=== PATIENT | female | born 1980 | race Caucasian/White ===

== ENCOUNTER 2018-01-12 16:10 | Emergency (ER) | payer BC ==
[2018-01-12] MEDS ORDERED: NA CHLORIDE 0.9% 100 ML IV ONE (16:56)
[2018-01-12 17:00] LABS: Absolute Monocytes 0.9 K/uL (0.1-1.3); Absolute Neutrophil 15.3 K/uL (1.8-8.0); Basophils % 0.2 % (0-1.3); Eosinophils % 0.5 % (0-4.4); Hematocrit 38.1 % (36.0-45.0); Lymphocytes % 10.9 % (15.3-44.8); MCH 30.2 pg (27.0-35.0); MCV 89.8 fL (80-100); MPV 7.6 fL (7.6-11.3); Monocytes % 4.8 % (3.3-12.3); RBC Red Blood Cell Count 4.24 M/uL (3.86-4.86)
[2018-01-12 17:16] LABS: ALT/SGPT 37 U/L (12-78); AST/SGOT 20 U/L (15-37); Albumin 4.3 g/dL (3.4-5.0); Alkaline Phosphatase 81 U/L (45-117); Amylase Level 46 U/L (25-115); BUN Blood Urea Nitrogen 10 mg/dL (7-18); Bicarbonate 26 mmol/L (21-32); Bilirubin Direct 0.1 mg/dL (0-0.2); Bilirubin Total 0.3 mg/dL (0.2-1.0); Glucose Level 95 mg/dL (74-106); Lipase 124 U/L (73-393); Potassium 3.9 mmol/L (3.5-5.1); Protein, Total 8.3 g/dL (6.4-8.2); Sodium Level 137 mmol/L (136-145)
[2018-01-12 18:11] LABS: Urine Blood 3+ (NEG); Urine Glucose NEGATIVE (NEG); Urine Protein 2+ (NEG); Urine Specific Gravity 1.015 (1.005-1.030); Urine pH 5.5 (5.0-7.0)
[2018-01-12 18:13] LABS: Urine Bacteria <20 /HPF (<20); Urine Culture Reflex Order NOT NEEDED; Urine RBC <5 /HPF (NONE SEEN)
--- NOTE | 2018-01-12 18:30 | RAD REPORT ---
EXAM DESCRIPTION: CTAbdomen Pelvis W Contrast - 01/12/2018 6:02 pm CLINICAL HISTORY: Abdominal pain. ABD PAIN COMPARISON: CT ABD PELVIS W CONTRAST dated 07/23/2014; Chest Single View dated 12/08/2015 TECHNIQUE: Biphasic CT imaging of the abdomen and pelvis was performed with 100 ml non-ionic IV cont rast. All CT scans are performed using dose optimization technique as appropriate and may include automated exposure control or mA/KV adjustment according to patient size. FINDINGS: The lung bases are clear. The liver, spleen, pancreas, adrenal glands and kidneys are within normal limits. No bowel obstruction, free air, free fluid or abscess. The appendix is normal. No evidence of signi ficant lymphadenopathy. No suspicious bony findings. 5 cm area of diminished density in the uterus may represent a fibroid or a pathologically dilated endometrium. IMPRESSION: No acute intra-abdominal or pelvic finding. 5 cm area of diminished density in the uterus is potentially a fibroid or pathologically dilated endo metrium. Followup pelvic sonography would be of value for further assessment of this finding.
--- NOTE | 2018-01-12 18:55 | ER ---
Nurse's Notes [facility] Name: Dottie Blanca Age: 37 yrs Sex: Female : 1980 Arrival Date: 01/12/2018 Time: 16:11 Bed 30 Private MD: Diagnosis: Leiomyoma of uterus;Abnormal uterine and vaginal bleeding, unspecified Presentation: 01/12 16:18 Presenting complaint: Patient states: Right abdominal pain for 6 days with irregular aj uterine bleeding. Patient reports bloating and nausea. Transition of care: patient was not received from another setting of care. Onset of symptoms was January 06, 2018. Risk Assessment: Do you want to hurt yourself or someone else? Patient reports no desire to harm self or others. Initial Sepsis Screen: Does the patient meet any 2 criteria? No. Patient's initial sepsis screen is negative. Does the patient have a suspected source of infection? No. Patient's initial sepsis screen is negative. Care prior to arrival: None. 16:18 Method Of Arrival: Ambulatory aj 16:18 Acuity: RENETTA 3 aj Triage Assessment: 16:20 General: Appears in no apparent distress. comfortable, Behavior is calm, cooperative, aj appropriate for age. Pain: Complains of pain in right upper quadrant and right lower quadrant. Neuro: Level of Consciousness is awake, alert, obeys commands, Oriented to person, place, time, situation, Appropriate for age. Respiratory: Airway is patent Respiratory effort is even, unlabored, Respiratory pattern is regular, symmetrical. GI: Abdomen is round Reports lower abdominal pain, upper abdominal pain, bloating, nausea. Derm: Skin is intact, is healthy with good turgor, Skin is pink, warm \T\ dry. normal. 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 - Social history:: Smoking status: Patient uses tobacco products, smokes one-half pack cigarettes per day. - Ebola Screening: : Patient negative for fever greater than or equal to 101.5 degrees Fahrenheit, and additional compatible Ebola Virus Disease symptoms Patient denies exposure to infectious person Patient denies travel to an Ebola-affected area in the 21 days before illness onset No symptoms or risks identified at this time. Screenin:29 Abuse screen: Denies threats or abuse. Denies injuries from another. Nutritional rv screening: No deficits noted. Tuberculosis screening: No symptoms or risk factors identified. Fall Risk None identified. Assessment: 16:45 General: Appears in no apparent distress. uncomfortable, Behavior is calm, cooperative. rv 16:45 Pain: Complains of pain in abdomen Pain currently is 7 out of 10 on a pain scale. rv Neuro: Level of Consciousness is awake, alert, obeys commands, Oriented to person, place, time. Cardiovascular: Heart tones S1 S2 present. Respiratory: Airway is patent. GI: Bowel sounds present X 4 quads. Abd is soft and non tender. : No signs and/or symptoms were reported regarding the genitourinary system. EENT: No signs and/or symptoms were reported regarding the EENT system. Derm: Skin is intact. Musculoskeletal: No signs and/or symptoms reported regarding the musculoskeletal system. Vital Signs: 16:20 BP 124 / 91; Pulse 129; Resp 20; Temp 99.0; Pulse Ox 98% on R/A; Weight 65.77 kg; aj Height 5 ft. 3 in. (160.02 cm); 16:59 BP 106 / 75; rv 18:25 BP 126 / 82; rv 19:30 BP 120 / 87; Pulse 103; rv 16:20 Body Mass Index 25.69 (65.77 kg, 160.02 cm) aj ED Course: 16:10 Patient has correct armband on for positive identification. Bed in low position. NIBP rv on. 16:11 Patient arrived in ED. as 16:19 Triage completed. aj 16:20 Arm band placed on left wrist. Patient placed in an exam room. aj 16:24 Erlin Mcmullen NP is PHCP. pm1 16:24 Ld Hagen MD is Attending Physician. pm1 16:43 Radiology exam delayed due to test not completed at this time. bq 16:58 Inserted saline lock: 20 gauge in right antecubital area, using aseptic technique. rv 17:59 CT completed. Patient moved to CT via wheelchair. Patient moved back from CT. cw1 18:02 CT Abd/Pelvis - W/Contrast: IV contrast only In Process Unspecified. EDMS 18:53 Wilberto Wiseman MD is Referral Physician. pm1 19:28 Blood Culture Adult (2) Sent. rv 19:29 No provider procedures requiring assistance completed. IV discontinued, bleeding rv controlled, No redness/swelling at site. Pressure dressing applied. Administered Medications: 16:56 Drug: NS 0.9% 1000 ml Route: IV; Rate: 1000 ml; Site: right antecubital; rv 19:28 Follow up: Response: No adverse reaction; IV Status: Completed infusion rv Outcome: 18:55 Discharge ordered by MD. pm1 19:29 Discharged to home ambulatory. rv 19:29 Condition: good 19:29 Discharge instructions given to patient, Instructed on discharge instructions, follow up and referral plans. medication usage. 19:30 Patient left the ED. rv Signatures: Dispatcher [employer] EDMS Fabiola Adams, ISAEL RN Bertha Clay Amelia as Woodley, Crystal cw1 Erlin Mcmullen, MILITARY EXCHANGE WIRELESS MANAGER MILITARY EXCHANGE WIRELESS MANAGER pm1 Clarence Corbin RN RN rv
--- NOTE | 2018-01-12 18:56 | EDPHYS ---
Physician Documentation [facility] Name: Dottie Blanca Age: 37 yrs Sex: Female : 1980 Arrival Date: 01/12/2018 Time: 16:11 Bed 30 Private MD: ED Physician Ld Hagen HPI: 01/12 16:30 This 37 yrs old Female presents to ER via Ambulatory with complaints of pm1 Abdominal Pain. 16:30 The patient presents with abdominal pain Suprapubic. Onset: The symptoms/episode pm1 began/occurred 6 day(s) ago. The symptoms do not radiate. Associated signs and symptoms: Pertinent negatives: nausea, vomiting, and diarrhea, chest pain, dysuria, fever, headache, shortness of breath. The symptoms are described as crampy, sharp. Modifying factors: The symptoms are alleviated by positioning, keeping knees bent. the symptoms are aggravated by nothing. Severity of pain: in the emergency department the pain is actually worse. The patient has experienced similar episodes in the past, multiple times. 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 - Social history:: Smoking status: Patient uses tobacco products, smokes one-half pack cigarettes per day. - Ebola Screening: : Patient negative for fever greater than or equal to 101.5 degrees Fahrenheit, and additional compatible Ebola Virus Disease symptoms Patient denies exposure to infectious person Patient denies travel to an Ebola-affected area in the 21 days before illness onset No symptoms or risks identified at this time. ROS: 16:30 Constitutional: Negative for fever, chills, and weight loss, Eyes: Negative for injury, pm1 pain, redness, and discharge, ENT: Negative for injury, pain, and discharge, Neck: Negative for injury, pain, and swelling, Cardiovascular: Negative for chest pain, palpitations, and edema, Respiratory: Negative for shortness of breath, cough, wheezing, and pleuritic chest pain. 16:30 MS/Extremity: Negative for injury and deformity, Skin: Negative for injury, rash, and discoloration. 16:30 Neuro: Negative for headache, weakness, numbness, tingling, and seizure. 16:30 Abdomen/GI: Positive for abdominal pain, Negative for nausea, vomiting, and diarrhea. 16:30 : Positive for vaginal bleeding, Negative for burning with urination, difficulty urinating. Exam: 16:30 Constitutional: This is a well developed, well nourished patient who is awake, alert, pm1 and in no acute distress. Head/Face: Normocephalic, atraumatic. Eyes: Pupils equal round and reactive to light, extra-ocular motions intact. Lids and lashes normal. Conjunctiva and sclera are non-icteric and not injected. Cornea within normal limits. Periorbital areas with no swelling, redness, or edema. ENT: Nares patent. No nasal discharge, no septal abnormalities noted. Tympanic membranes are normal and external auditory canals are clear. Oropharynx with no redness, swelling, or masses, exudates, or evidence of obstruction, uvula midline. Mucous membranes moist. Neck: Trachea midline, no thyromegaly or masses palpated, and no cervical lymphadenopathy. Supple, full range of motion without nuchal rigidity, or vertebral point tenderness. No Meningismus. Chest/axilla: Normal chest wall appearance and motion. Nontender with no deformity. No lesions are appreciated. Cardiovascular: Regular rate and rhythm with a normal S1 and S2. No gallops, murmurs, or rubs. Normal PMI, no JVD. No pulse deficits. Respiratory: Lungs have equal breath sounds bilaterally, clear to auscultation and percussion. No rales, rhonchi or wheezes noted. No increased work of breathing, no retractions or nasal flaring. 16:30 Back: No spinal tenderness. No costovertebral tenderness. Full range of motion. Skin: Warm, dry with normal turgor. Normal color with no rashes, no lesions, and no evidence of cellulitis. MS/ Extremity: Pulses equal, no cyanosis. Neurovascular intact. Full, normal range of motion. 16:30 Abdomen/GI: Inspection: abdomen appears normal, Bowel sounds: normal, Palpation: mild abdominal tenderness, in the suprapubic area and right lower quadrant, mass, is not appreciated, rebound tenderness, is not appreciated. 16:30 Neuro: Orientation: is normal, Motor: is normal, moves all fours. Vital Signs: 16:20 BP 124 / 91; Pulse 129; Resp 20; Temp 99.0; Pulse Ox 98% on R/A; Weight 65.77 kg; aj Height 5 ft. 3 in. (160.02 cm); 16:59 BP 106 / 75; rv 18:25 BP 126 / 82; rv 19:30 BP 120 / 87; Pulse 103; rv 16:20 Body Mass Index 25.69 (65.77 kg, 160.02 cm) aj MDM: 16:30 Patient medically screened. pm1 16:31 ED course: Patient offered pain medications in the ER. Patient refused.. pm1 18:52 Data reviewed: vital signs. Data interpreted: Pulse oximetry: on room air is 98 %. pm1 Interpretation: normal. Counseling: I had a detailed discussion with the patient and/or guardian regarding: the historical points, exam findings, and any diagnostic results supporting the discharge/admit diagnosis, lab results, radiology results, the need for outpatient follow up, for definitive care, an OB/Gyne specialist, to return to the emergency department if symptoms worsen or persist or if there are any questions or concerns that arise at home. 18:52 ED course: patient offered pain medication in the ER, patient refused. pm1 18:52 ED course: Patient reports that she is aware of uterine fibroid and Dr. Wiseman wanted to pm1 perform a procedure to address it. Patient was concerned that the pain was something else. Elevated WBC likely due to inflammation due to CT results and negative urine result. Instructed patient to follow up with Dr. Wiseman for definitive care. 01/12 16:30 Order name: Amylase, Serum; Complete Time: 18:32 pm01/12 16:30 Order name: Basic Metabolic Panel; Complete Time: 18:32 pm01/12 16:30 Order name: CBC with Diff; Complete Time: 17:04 pm01/12 16:30 Order name: Creatinine for Radiology; Complete Time: 17:14 pm01/12 16:30 Order name: Hepatic Function; Complete Time: 18:32 pm1 01/12 16:30 Order name: Lipase; Complete Time: 18:32 pm01/12 16:30 Order name: Urine Test (obtain specimen); Complete Time: 18:25 pm01/12 16:30 Order name: Urine Microscopic Only; Complete Time: 18:32 pm1 01/12 16:31 Order name: CT Abd/Pelvis - W/Contrast: IV contrast only; Complete Time: 18:32 pm1 01/12 17:14 Order name: Blood Culture Adult (2) pm1 01/12 17:15 Order name: Blood Culture [facility] 01/12 17:49 Order name: Urine Dipstick--Ancillary (enter results); Complete Time: 18:32 eb 01/12 17:49 Order name: Urine --Ancillary (enter results); Complete Time: 18:32 eb 01/12 16:30 Order name: IV Saline Lock; Complete Time: 16:50 pm1 01/12 16:30 Order name: Labs collected and sent; Complete Time: 16:50 pm1 01/12 16:30 Order name: Urine Dipstick-Ancillary (obtain specimen); Complete Time: 18:25 pm1 Administered Medications: 16:56 Drug: NS 0.9% 1000 ml Route: IV; Rate: 1000 ml; Site: right antecubital; rv 19:28 Follow up: Response: No adverse reaction; IV Status: Completed infusion rv Disposition: 01/13 07:10 Co-signature as Attending Physician, Ld Hagen MD I agree with the assessment and kdr plan of care. Disposition: 01/12/18 18:55 Discharged to Home. Impression: Leiomyoma of uterus, Abnormal uterine and vaginal bleeding, unspecified. - Condition is Stable. - Discharge Instructions: Abdominal Pain, Adult, Abnormal Uterine Bleeding, Uterine Fibroids. - Prescriptions for Tramadol 50 mg Oral Tablet - take 1 tablet by ORAL route every 8 hours as needed; 12 tablet. - Medication Reconciliation Form, Thank You Letter, Prescription Opioid Use form. - Follow up: Emergency Department; When: As needed; Reason: Worsening of condition. Follow up: Wilberto Wiseman MD; When: 2 - 3 days; Reason: Recheck today's complaints, Continuance of care, Re-evaluation by your physician. - Problem is new. - Symptoms have improved. Signatures: Dispatcher [employer] EDFabiola Lozano RN RN aj Rittger, Kevin, MD MD kdr Marinas, Patrick, MARTIN PARKING METER MECHANIC pm1 Clarence Corbin RN RN rv Corrections: (The following items were deleted from the chart) 01/12 19:30 18:55 01/12/2018 18:55 Discharged to Home. Impression: Leiomyoma of uterus; Abnormal rv uterine and vaginal bleeding, unspecified. Condition is Stable. Forms are Medication Reconciliation Form, Thank You Letter, Antibiotic Education, Prescription Opioid Use. Follow up: Emergency Department; When: As needed; Reason: Worsening of condition. Follow up: Wilberto Wiseman; When: 2 - 3 days; Reason: Recheck today's complaints, Continuance of care, Re-evaluation by your physician. Problem is new. Symptoms have improved. pm1
== END 2018-01-12 19:30 | disposition home or self-care (01) ==
LOC: ER 16:10
DX: D25.9 Leiomyoma of uterus, unspecified (principal); N93.9 Abnormal uterine and vaginal bleeding, unspecified; F17.210 Nicotine dependence, cigarettes, uncomplicated
CPT/HCPCS: 36415; 74177; 80048; 80076; 81003; 81015; 81025; 82150; 83690; 85025; 87040; 87205; 96360; 96361; 99284; Q9967

== ENCOUNTER 2018-09-21 12:59 | Emergency (ER) | payer BC ==
[2018-09-21 14:39] LABS: Absolute Lymphocytes (CBC) 2.9 K/uL (0.7-4.9); Absolute Monocytes 0.8 K/uL (0.1-1.3); Absolute Neutrophil 6.7 K/uL (1.8-8.0); Basophils % 0.7 % (0-1.3); Hematocrit 39.4 % (36.0-45.0); Lymphocytes % 26.9 % (15.3-44.8); MPV 8.2 fL (7.6-11.3); Monocytes % 7.5 % (3.3-12.3)
[2018-09-21] MEDS ORDERED: NA CHLORIDE 0.9% 500 ML ONE ×2 (14:40→15:25)
[2018-09-21] MEDS ORDERED: NA CHLORIDE 0.9% 1,000 ML ONE (14:40)
[2018-09-21 14:45] LABS: Protime INR 0.9
[2018-09-21 15:00] LABS: ALT/SGPT 51 U/L (12-78); AST/SGOT 23 U/L (15-37); Alkaline Phosphatase 79 U/L (45-117); BUN Blood Urea Nitrogen 12 mg/dL (7-18); Bicarbonate 26 mmol/L (21-32); Bilirubin Direct < 0.1 mg/dL (0-0.2); Bilirubin Total 0.3 mg/dL (0.2-1.0); Glucose Level 86 mg/dL (74-106); Magnesium 2.2 mg/dL (1.8-2.4); NT PRO-BNP 9 pg/mL (<125); Potassium 3.9 mmol/L (3.5-5.1); Protein, Total 7.7 g/dL (6.4-8.2); Sodium Level 141 mmol/L (136-145); Troponin (Emerg Dept Use Only) < 0.02 ng/mL (0.0-0.045)
[2018-09-21 15:11] LABS: Urine Blood TRACE (NEG); Urine Glucose NEGATIVE (NEG); Urine Protein NEGATIVE (NEG); Urine Specific Gravity 1.015 (1.005-1.030)
--- NOTE | 2018-09-21 15:36 | RAD REPORT ---
EXAM DESCRIPTION: RAD - Chest Single View - 09/21/2018 2:37 pm CLINICAL HISTORY: All COMPARISON: November 2015 TECHNIQUE: AP portable chest image was obtained 1427 hours . FINDINGS: Lungs are clear. Heart and vasculature are normal. No measurable pleural effusion and no p neumothorax. No acute bony abnormality seen. No acute aortic findings suspected. IMPRESSION: No acute cardiopulmonary process. No significant interval change.
--- NOTE | 2018-09-21 16:14 | RAD REPORT ---
EXAM DESCRIPTION: CT - Chest For Pe Angio - 09/21/2018 3:44 pm CLINICAL HISTORY: Chest pain, shortness of breath COMPARISON: Chest films same date TECHNIQUE: Dynamically enhanced 3 mm thick images of the chest were obtained during administration o f approximately 150mL Isovue 370 IV contrast. Coronal and oblique MIP reconstruction images were gene rated and reviewed. Exam utilizes a protocol to evaluate the pulmonary arterial tree. All CT scans are performed using dose optimization technique as appropriate and may include automated exposure control or mA/KV adjustment according to patient size. FINDINGS: No pulmonary emboli are identified. The aorta as imaged shows no acute or suspicious finding. No pericardial thickening or effusion. No mass or consolidation. Minimal areas of alveolitis or atelectasis seen in the upper lung clark. N o significant pulmonary edema pattern. No pleural effusion or pleural thickening. No mediastinal or hilar suspicious masses. No chest wall masses or abnormal axillary lymphadenopathy. IMPRESSION: No pulmonary emboli identified. Minimal alveolar edema versus atelectasis of the upper lung clark.
--- NOTE | 2018-09-21 16:34 | EDPHYS ---
Physician Documentation [facility] Name: Dottie Blanca Age: 38 yrs Sex: Female : 1980 Arrival Date: 09/21/2018 Time: 13:00 Bed 26 Private MD: ED Physician Micha Boyer HPI: 09/21 14:12 This 38 yrs old Female presents to ER via Ambulatory with complaints of Ankle yaakov Swelling, Numbness Of Hand. 14:12 The patient presents with pain, that is acute. The complaints affect the right leg and yaakov left leg. Onset: The symptoms/episode began/occurred 4 day(s) ago. Context: The problem was sustained at an unknown location. Associated signs and symptoms: Pertinent positives: swelling, weakness, of the right leg and left leg. Modifying factors: The symptoms are alleviated by nothing, the symptoms are aggravated by nothing. The patient has not experienced similar symptoms in the past. 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 - Social history:: Smoking status: Patient uses tobacco products, smokes one-half pack cigarettes per day. - Ebola Screening: : No symptoms or risks identified at this time. - Family history:: not pertinent. ROS: 14:12 Constitutional: Negative for fever, chills, and weight loss, Eyes: Negative for injury, yaakov pain, redness, and discharge, ENT: Negative for injury, pain, and discharge, Neck: Negative for injury, pain, and swelling, Cardiovascular: Negative for chest pain, palpitations, and edema, Respiratory: Negative for shortness of breath, cough, wheezing, and pleuritic chest pain, Abdomen/GI: Negative for abdominal pain, nausea, vomiting, diarrhea, and constipation, Back: Negative for injury and pain, : Negative for injury, bleeding, discharge, and swelling, MS/Extremity: Negative for injury and deformity, Skin: Negative for injury, rash, and discoloration, Neuro: Negative for headache, weakness, numbness, tingling, and seizure, Psych: Negative for depression, anxiety, suicide ideation, homicidal ideation, and hallucinations, Allergy/Immunology: Negative for hives, rash, and allergies, Endocrine: Negative for neck swelling, polydipsia, polyuria, polyphagia, and marked weight changes, Hematologic/Lymphatic: Negative for swollen nodes, abnormal bleeding, and unusual bruising. 14:12 Cardiovascular: Positive for chest pain. 14:12 Abdomen/GI: Positive for indigestion. Exam: 14:12 Constitutional: This is a well developed, well nourished patient who is awake, alert, yaakov and in no acute distress. Head/Face: Normocephalic, atraumatic. Eyes: Pupils equal round and reactive to light, extra-ocular motions intact. Lids and lashes normal. Conjunctiva and sclera are non-icteric and not injected. Cornea within normal limits. Periorbital areas with no swelling, redness, or edema. ENT: Nares patent. No nasal discharge, no septal abnormalities noted. Tympanic membranes are normal and external auditory canals are clear. Oropharynx with no redness, swelling, or masses, exudates, or evidence of obstruction, uvula midline. Mucous membranes moist. Neck: Trachea midline, no thyromegaly or masses palpated, and no cervical lymphadenopathy. Supple, full range of motion without nuchal rigidity, or vertebral point tenderness. No Meningismus. Chest/axilla: Normal chest wall appearance and motion. Nontender with no deformity. No lesions are appreciated. Cardiovascular: Regular rate and rhythm with a normal S1 and S2. No gallops, murmurs, or rubs. Normal PMI, no JVD. No pulse deficits. Respiratory: Lungs have equal breath sounds bilaterally, clear to auscultation and percussion. No rales, rhonchi or wheezes noted. No increased work of breathing, no retractions or nasal flaring. Abdomen/GI: Soft, non-tender, with normal bowel sounds. No distension or tympany. No guarding or rebound. No evidence of tenderness throughout. Back: No spinal tenderness. No costovertebral tenderness. Full range of motion. Skin: Warm, dry with normal turgor. Normal color with no rashes, no lesions, and no evidence of cellulitis. MS/ Extremity: Pulses equal, no cyanosis. Neurovascular intact. Full, normal range of motion. Neuro: Awake and alert, GCS 15, oriented to person, place, time, and situation. Cranial nerves II-XII grossly intact. Motor strength 5/5 in all extremities. Sensory grossly intact. Cerebellar exam normal. Normal gait. Psych: Awake, alert, with orientation to person, place and time. Behavior, mood, and affect are within normal limits. 14:32 Musculoskeletal/extremity: DVT Exam: No signs of deep vein thrombosis. no pain, no yaakov swelling, no tenderness, negative Homans' sign noted on exam, no appreciated bluish discoloration, no erythema, no increased warmth, bilateral le sunburn, 1 st degree. Vital Signs: 13:11 BP 111 / 92; Pulse 104; Resp 16; Temp 98.8; Pulse Ox 100% on R/A; Weight 68.04 kg; la1 Height 5 ft. 3 in. (160.02 cm); Pain 5/10; 13:30 BP 131 / 84; Pulse 93; Resp 19 S; Pulse Ox 100% on R/A; ca1 15:24 BP 136 / 94; Pulse 90; Resp 18; Pulse Ox 100% on R/A; mg2 16:30 BP 128 / 86; Pulse 95; Resp 19; Pulse Ox 99% on R/A; ca1 13:11 Body Mass Index 26.57 (68.04 kg, 160.02 cm) la1 MDM: 13:32 Patient medically screened. [facility] 14:15 Data reviewed: vital signs, nurses notes, lab test result(s), EKG, radiologic studies. [facility] 09/21 14:02 Order name: Basic Metabolic Panel; Complete Time: 15:05 [facility] 09/21 14:02 Order name: CBC with Diff; Complete Time: 15:05 [facility] 09/21 14:02 Order name: LFT's; Complete Time: 15:05 [facility] 09/21 14:02 Order name: Magnesium; Complete Time: 15:05 [facility] 09/21 14:02 Order name: NT PRO-BNP; Complete Time: 15:05 [facility] 09/21 14:02 Order name: PT-INR; Complete Time: 15:05 [facility] 09/21 14:02 Order name: Troponin (emerg Dept Use Only); Complete Time: 15:05 [facility] 09/21 14:02 Order name: XRAY Chest (1 view); Complete Time: 16:27 [facility] 09/21 14:11 Order name: D-Dimer; Complete Time: 15:05 [facility] 09/21 14:33 Order name: Urine Dipstick--Ancillary (enter results); Complete Time: 15:31 09/21 14:33 Order name: Urine --Ancillary (enter results); Complete Time: 15:31 09/21 15:07 Order name: US Extremity Venous W Compression Jayy [facility] 09/21 15:07 Order name: CT Chest For PE Angio; Complete Time: 16:27 [facility] 09/21 16:30 Order name: INCENTIVE SPIROMETRY [facility] 09/21 14:02 Order name: Cardiac monitoring; Complete Time: 14:27 [facility] 09/21 14:02 Order name: EKG - Nurse/Tech; Complete Time: 14:03 [facility] 09/21 14:02 Order name: IV Saline Lock; Complete Time: 14:27 [facility] 09/21 14:02 Order name: Labs collected and sent; Complete Time: 14:27 [facility] 09/21 14:02 Order name: O2 Per Protocol; Complete Time: 14:03 [facility] 09/21 14:02 Order name: O2 Sat Monitoring; Complete Time: 14:03 [facility] 09/21 14:02 Order name: Urine Dipstick-Ancillary (obtain specimen); Complete Time: 14:15 [facility] Administered Medications: 14:27 Drug: NS 0.9% 500 ml Route: IV; Rate: bolus; Site: right antecubital; ca1 15:19 Follow up: Urine output 300 ml; Response: No adverse reaction; IV Status: Completed ca1 infusion 14:27 Drug: NS 0.9% 1000 ml Route: IV; Rate: 125 ml/hr; Site: right antecubital; ca1 17:00 Follow up: IV Status: Pt discharged ca1 15:12 Drug: NS 0.9% 500 ml Route: IV; Rate: bolus; Site: right antecubital; ca1 16:00 Follow up: IV Status: Completed infusion ca1 16:35 Drug: Zithromax 500 mg Route: PO; ca1 16:59 Follow up: Response: Medication administered at discharge. ca1 Disposition: 09/21/18 16:33 Discharged to Home. Impression: Chest pain, unspecified, Edema, unspecified, Carpal tunnel syndrome, Atelectasis. - Condition is Stable. - Discharge Instructions: Nonspecific Chest Pain, Nonspecific Chest Pain, [id number], Aspirin and Your Heart, Peripheral Edema. - Prescriptions for Pepcid 20 mg Oral Tablet - take 1 tablet by ORAL route every 12 hours for 10 days; 20 tablet. Zithromax Z- Aramis 250 mg Oral Tablet - take 1 tablet by ORAL route as directed for 5 days Day 1 - take two (2) tablets one time. Day 2, 3, 4 , 5 take one (1) tablet once daily.; 6 tablet. - Medication Reconciliation Form, Thank You Letter, Antibiotic Education, Prescription Opioid Use form. - Follow up: Private Physician; When: 2 - 3 days; Reason: Recheck today's complaints, Continuance of care, Re-evaluation by your physician. Follow up: Chidi Hines; When: 2 - 3 days; Reason: Recheck today's complaints, Re-evaluation by your physician. - Problem is new. - Symptoms have improved. Signatures: Dispatcher [employer] EDKY Micha Boyer MD MD cha Attema, Lee, RN RN la1 Susie Garcia RN RN ca1 Corrections: (The following items were deleted from the chart) 17:28 16:33 09/21/2018 16:33 Discharged to Home. Impression: Chest pain, unspecified; Edema, ca1 unspecified; Carpal tunnel syndrome; Atelectasis. Condition is Stable. Discharge Instructions: Nonspecific Chest Pain, Nonspecific Chest Pain, [id number], Aspirin and Your Heart, Peripheral Edema. Prescriptions for Pepcid 20 mg Oral Tablet - take 1 tablet by ORAL route every 12 hours for 10 days; 20 tablet. and Forms are Medication Reconciliation Form, Thank You Letter, Antibiotic Education, Prescription Opioid Use. Follow up: Private Physician; When: 2 - 3 days; Reason: Recheck today's complaints, Continuance of care, Re-evaluation by your physician. Follow up: Chidi Hines; When: 2 - 3 days; Reason: Recheck today's complaints, Re-evaluation by your physician. Problem is new. Symptoms have improved. yaakov
--- NOTE | 2018-09-21 16:34 | ER ---
Nurse's Notes [facility] Name: Dottie Blanca Age: 38 yrs Sex: Female : 1980 Arrival Date: 09/21/2018 Time: 13:00 Bed 26 Private MD: Diagnosis: Chest pain, unspecified;Edema, unspecified;Carpal tunnel syndrome;Atelectasis Presentation: 09/21 13:09 Presenting complaint: Patient states: I was on a cruise and starting on Sunday I la1 started noticing some swelling in both of my feet, some indigestion, and left hand numbness tingling, I got back from the cruise this morning. Transition of care: patient was not received from another setting of care. Onset of symptoms was September 21, 2018. Risk Assessment: Do you want to hurt yourself or someone else? Patient reports no desire to harm self or others. Initial Sepsis Screen: Does the patient meet any 2 criteria? No. Patient's initial sepsis screen is negative. Does the patient have a suspected source of infection? No. Patient's initial sepsis screen is negative. Care prior to arrival: None. 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 - Social history:: Smoking status: Patient uses tobacco products, smokes one-half pack cigarettes per day. - Ebola Screening: : No symptoms or risks identified at this time. - Family history:: not pertinent. Screenin:30 Abuse screen: Denies threats or abuse. Denies injuries from another. Nutritional ca1 screening: No deficits noted. Tuberculosis screening: No symptoms or risk factors identified. Fall Risk None identified. Assessment: 13:30 General: Appears in no apparent distress. comfortable, Behavior is calm, cooperative, ca1 appropriate for age. Pain: Complains of pain in right breast Pain does not radiate. Pain level that patient reports is acceptable is 3 out of 10 on a pain scale. Pain began 2-3 days ago. Neuro: Level of Consciousness is awake, alert, obeys commands, Oriented to person, place, time, situation. Cardiovascular: Heart tones S1 S2 present Capillary refill < 3 seconds Patient's skin is warm and dry. Respiratory: Airway is patent Respiratory effort is even, unlabored, Respiratory pattern is regular, symmetrical, Breath sounds are clear bilaterally. GI: No deficits noted. No signs and/or symptoms were reported involving the gastrointestinal system. : No deficits noted. No signs and/or symptoms were reported regarding the genitourinary system. EENT: No deficits noted. No signs and/or symptoms were reported regarding the EENT system. Derm: Skin is intact, is healthy with good turgor, Skin is pink, warm \T\ dry. Musculoskeletal: Circulation, motion, and sensation intact. Capillary refill < 3 seconds, Swelling present in right foot. 14:25 Reassessment: Patient appears in no apparent distress at this time. Patient and/or ca1 family updated on plan of care and expected duration. Pain level reassessed. Patient is alert, oriented x 3, equal unlabored respirations, skin warm/dry/pink. 15:30 Reassessment: Patient appears in no apparent distress at this time. Patient and/or ca1 family updated on plan of care and expected duration. Pain level reassessed. Patient is alert, oriented x 3, equal unlabored respirations, skin warm/dry/pink. 16:29 Reassessment: Patient appears in no apparent distress at this time. Patient and/or ca1 family updated on plan of care and expected duration. Pain level reassessed. Patient is alert, oriented x 3, equal unlabored respirations, skin warm/dry/pink. 17:15 Reassessment: Instructed and demonstrated on use of Incentive Spirometer. ca1 Vital Signs: 13:11 BP 111 / 92; Pulse 104; Resp 16; Temp 98.8; Pulse Ox 100% on R/A; Weight 68.04 kg; la1 Height 5 ft. 3 in. (160.02 cm); Pain 5/10; 13:30 BP 131 / 84; Pulse 93; Resp 19 S; Pulse Ox 100% on R/A; ca1 15:24 BP 136 / 94; Pulse 90; Resp 18; Pulse Ox 100% on R/A; mg2 16:30 BP 128 / 86; Pulse 95; Resp 19; Pulse Ox 99% on R/A; ca1 13:11 Body Mass Index 26.57 (68.04 kg, 160.02 cm) la1 ED Course: 13:00 Patient arrived in ED. as 13:11 Triage completed. la1 13:12 Arm band placed on right wrist. la1 13:30 Patient has correct armband on for positive identification. Placed in gown. Bed in low ca1 position. Call light in reach. Side rails up X 1. traffic monitor specialist on. Pulse ox on. NIBP on. Warm blanket given. 13:32 Micha Boyer MD is Attending Physician. yaakov 13:57 Susie Garcia, ISAEL is Primary Nurse. ca1 14:00 Urine collected: clean catch specimen, clear, marisabel colored, Amount Voided: 80mL. jp3 14:30 Initial lab(s) drawn, by ED staff, sent to lab. Inserted saline lock: 20 gauge in right jp3 antecubital area, using aseptic technique. Blood collected. performed by Susie KIRKLAND. 14:37 XRAY Chest (1 view) In Process Unspecified. EDMS 14:46 EKG done, by ED staff, reviewed by Micha Boyer MD. jp3 14:49 Urine --Ancillary (enter results) Sent. jp3 15:40 CT completed. Patient tolerated procedure well. Patient moved to CT. Patient moved back mw3 from CT. 15:44 CT Chest For PE Angio In Process Unspecified. EDMS 16:18 Ultrasound completed. Patient tolerated well. sg3 16:20 US Extremity Venous W Compression Jayy In Process Unspecified. EDMS 16:30 Chidi Hines MD is Referral Physician. yaakov 17:15 No provider procedures requiring assistance completed. IV discontinued, intact, ca1 bleeding controlled, No redness/swelling at site. Pressure dressing applied. Administered Medications: 14:27 Drug: NS 0.9% 500 ml Route: IV; Rate: bolus; Site: right antecubital; ca1 15:19 Follow up: Urine output 300 ml; Response: No adverse reaction; IV Status: Completed ca1 infusion 14:27 Drug: NS 0.9% 1000 ml Route: IV; Rate: 125 ml/hr; Site: right antecubital; ca1 17:00 Follow up: IV Status: Pt discharged ca1 15:12 Drug: NS 0.9% 500 ml Route: IV; Rate: bolus; Site: right antecubital; ca1 16:00 Follow up: IV Status: Completed infusion ca1 16:35 Drug: Zithromax 500 mg Route: PO; ca1 16:59 Follow up: Response: Medication administered at discharge. ca1 Output: 15:19 Urine: 300ml; Total: 300ml. ca1 Outcome: 16:33 Discharge ordered by . yaakov 17:20 Discharged to home ambulatory. ca1 17:20 Condition: stable ca1 17:20 Discharge instructions given to patient, Instructed on discharge instructions, follow up and referral plans. medication usage, Demonstrated understanding of instructions, follow-up care, medications, Prescriptions given X 2. 17:28 Patient left the ED. ca1 Signatures: Dispatcher [employer] EDMS Micha Boyre MD MD cha Martinez, Amelia as Attema, Lee, RN RN la1 Jessi Aceves 3 Lacho Crespo RN RN mg2 Dariana Hsieh 3 Gilberto Daniel 3 Susie Garcia RN RN ca1
--- NOTE | 2018-09-21 16:55 | RAD REPORT ---
EXAM DESCRIPTION: US - Extrem Venous W Compress Jayy - 09/21/2018 4:19 pm CLINICAL HISTORY: Leg pain and swelling COMPARISON: None. TECHNIQUE: Real-time sonographic evaluation of the bilateral lower extremity common femoral, superfi cial femoral, popliteal and posterior tibial veins was performed. FINDINGS: Normal compressibility, flow augmentation, phasic flow and spontaneous flow are identified in the left and right lower extremity common femoral, superficial femoral, popliteal and posterior t ibial veins. No intraluminal filling defects seen. IMPRESSION: No DVT in either lower extremity.
[2018-09-21] MEDS ORDERED: AZITHROMYCIN 250 MG TAB ONE (17:01)
--- NOTE | 2018-09-24 11:39 | EKG ---
Test Date: 2018-09-21 Test Time: 14:36:04 [employer]vest [employer]: ARACELIS MEASUREMENT RESULTS: Intervals: Rate: 83 GA: 140 QRSD: 82 QT: 374 QTc: 439 Yoder: P: 32 GA: 140 QRS: 32 T: 28 INTERPRETIVE STATEMENTS: Normal sinus rhythm Normal ECG No previous ECG available for comparison Electronically Signed On 09-23-18 10:53:42 CDT by Rob Ferrara
== END 2018-09-21 17:28 | disposition home or self-care (01) ==
LOC: ER 12:59
DX: J98.11 Atelectasis (principal); G56.00 Carpal tunnel syndrome, unspecified upper limb; R60.9 Edema, unspecified; F17.210 Nicotine dependence, cigarettes, uncomplicated
CPT/HCPCS: 36415; 71045; 71275; 80048; 80076; 81003; 81025; 83735; 83880; 84484; 85025; 85379; 85610; 93005; 93970; 96360; 96361; 99285; J7030; Q9967

== ENCOUNTER 2019-08-04 13:36 | Emergency (ER) | payer BC ==
--- NOTE | 2019-08-04 14:34 | ER ---
Nurse's Notes [facility] Name: Dottie Blanca Age: 39 yrs Sex: Female : 1980 Arrival Date: 08/04/2019 Time: 13:39 Bed 27 Private MD: Diagnosis: Weakness;Scratched by cat;Cat-scratch disease Presentation: 08/04 13:49 Presenting complaint: Vomiting, fatigue, headaches, blisters on bilateral arms x 2 hb weeks. Seen by PCP last week, told she has cat scratch fever, completed Zithromax this morning. Transition of care: patient was not received from another setting of care. Onset of symptoms was August 04, 2019. Risk Assessment: Do you want to hurt yourself or someone else? Patient reports no desire to harm self or others. Care prior to arrival: None. 13:49 Method Of Arrival: Ambulatory hb 13:49 Acuity: RENETTA 3 hb 14:00 Initial Sepsis Screen: Does the patient meet any 2 criteria? No. Patient's initial ls4 sepsis screen is negative. Does the patient have a suspected source of infection? No. Patient's initial sepsis screen is negative. Triage Assessment: 14:22 General: Appears in no apparent distress. Behavior is calm, cooperative. Pain:. Neuro: ls4 No deficits noted. Cardiovascular: No deficits noted. Respiratory: No deficits noted. GI: Reports vomiting. : No deficits noted. Derm:. Musculoskeletal: No deficits noted. 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 - Coronavirus screen:: The patient has NOT traveled to [place] in the past 14 days. The patient has NOT had contact with known/suspected case of Coronavirus? Proceed with normal triage procedures. - Social history:: Smoking status: Patient reports the use of cigarette tobacco products, smokes one-half pack cigarettes per day. - Family history:: not pertinent. - Ebola Screening: : No symptoms or risks identified at this time. Screenin:00 Abuse screen: Denies threats or abuse. Denies injuries from another. ls4 14:00 Nutritional screening: No deficits noted. Tuberculosis screening: No symptoms or risk ls4 factors identified. Fall Risk None identified. Assessment: 16:36 Neuro: No deficits noted. Cardiovascular: No deficits noted. Respiratory: No deficits ls4 noted. GI: Abdomen is non-distended, Bowel sounds present X 4 quads. Abd is soft and non tender X 4 quads. : No deficits noted. Derm: Reports cat scratches to right arm. about one week ago on zpak for that from [employer]. Musculoskeletal: No deficits noted. Vital Signs: 13:51 BP 127 / 89; Pulse 94; Resp 16; Temp 98.1(O); Pulse Ox 98% ; Weight 70.31 kg; Height 5 hb ft. 3 in. (160.02 cm); Pain 5/10; 13:51 Body Mass Index 27.46 (70.31 kg, 160.02 cm) hb ED Course: 13:39 Patient arrived in ED. ag5 13:51 Triage completed. hb 13:53 Arm band placed on. hb 13:55 Megan Torres, RN is Primary Nurse. ls4 14:00 Patient has correct armband on for positive identification. Bed in low position. Call ls4 light in reach. Side rails up X 1. Verbal reassurance given. 14:07 Micha Boyer MD is Attending Physician. yaakov 16:35 No provider procedures requiring assistance completed. Patient did not have IV access ls4 during this emergency room visit. Administered Medications: 14:25 Not Given (Duplicate Order): Zofran 4 mg IVP once; over 2 minutes yaakov 14:25 Not Given (Duplicate Order): NS 0.9% 1000 ml IV at 1 bolus Per protocol; 1000 mL bolus yaakov 14:47 Drug: Bactrim (160 mg-800 mg (DS) 1 tablet Route: PO; ls4 15:01 Follow up: Response: No adverse reaction ls4 14:56 Drug: Nystatin-Triamcinolone 1 application Route: Topical; Site: affected area; ls4 Outcome: 14:34 Discharge ordered by . yaakov 15:02 Patient left the ED. ls4 15:02 Condition: good ls4 15:02 Discharged to home ambulatory, with family. ls4 15:02 Discharge instructions given to patient, family, Instructed on discharge instructions, Demonstrated understanding of instructions, follow-up care, medications, Prescriptions given X 2. Signatures: Micha Boyer MD MD cha Baxter, Heather RN RN Megan Nobles RN RN ls4 Eliceo Bynum [facility]
--- NOTE | 2019-08-04 14:34 | EDPHYS ---
Physician Documentation [facility] Name: Dottie Blanca Age: 39 yrs Sex: Female : 1980 Arrival Date: 08/04/2019 Time: 13:39 Bed 27 Private MD: ED Physician Micha Boyer HPI: 08/04 14:29 This 39 yrs old Female presents to ER via Ambulatory with complaints of yaakov Dizziness, Vomiting, Tired. 14:29 The patient presents with generalized weakness. Onset: The symptoms/episode yaakov began/occurred 3 day(s) ago. Modifying factors: The symptoms are alleviated by nothing, the symptoms are aggravated by nothing. Severity of symptoms: At their worst the symptoms were mild in the emergency department the symptoms are unchanged. Patient's baseline: Neuro: alert and fully oriented. 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 - Coronavirus screen:: The patient has NOT traveled to [place] in the past 14 days. The patient has NOT had contact with known/suspected case of Coronavirus? Proceed with normal triage procedures. - Social history:: Smoking status: Patient reports the use of cigarette tobacco products, smokes one-half pack cigarettes per day. - Family history:: not pertinent. - Ebola Screening: : No symptoms or risks identified at this time. ROS: 14:29 Constitutional: Negative for fever, chills, and weight loss, Eyes: Negative for injury, yaakov pain, redness, and discharge, ENT: Negative for injury, pain, and discharge, Neck: Negative for injury, pain, and swelling, Cardiovascular: Negative for chest pain, palpitations, and edema, Respiratory: Negative for shortness of breath, cough, wheezing, and pleuritic chest pain, Abdomen/GI: Negative for abdominal pain, nausea, vomiting, diarrhea, and constipation, Back: Negative for injury and pain, : Negative for injury, bleeding, discharge, and swelling, Skin: Negative for injury, rash, and discoloration, Neuro: Negative for headache, weakness, numbness, tingling, and seizure, Psych: Negative for depression, anxiety, suicide ideation, homicidal ideation, and hallucinations, Allergy/Immunology: Negative for hives, rash, and allergies, Endocrine: Negative for neck swelling, polydipsia, polyuria, polyphagia, and marked weight changes, Hematologic/Lymphatic: Negative for swollen nodes, abnormal bleeding, and unusual bruising. 14:29 MS/extremity: Positive for pain, rash, tenderness. Exam: 14:29 Constitutional: This is a well developed, well nourished patient who is awake, alert, yaakov and in no acute distress. Head/Face: Normocephalic, atraumatic. Eyes: Pupils equal round and reactive to light, extra-ocular motions intact. Lids and lashes normal. Conjunctiva and sclera are non-icteric and not injected. Cornea within normal limits. Periorbital areas with no swelling, redness, or edema. ENT: Nares patent. No nasal discharge, no septal abnormalities noted. Tympanic membranes are normal and external auditory canals are clear. Oropharynx with no redness, swelling, or masses, exudates, or evidence of obstruction, uvula midline. Mucous membranes moist. Neck: Trachea midline, no thyromegaly or masses palpated, and no cervical lymphadenopathy. Supple, full range of motion without nuchal rigidity, or vertebral point tenderness. No Meningismus. Chest/axilla: Normal chest wall appearance and motion. Nontender with no deformity. No lesions are appreciated. Cardiovascular: Regular rate and rhythm with a normal S1 and S2. No gallops, murmurs, or rubs. Normal PMI, no JVD. No pulse deficits. Respiratory: Lungs have equal breath sounds bilaterally, clear to auscultation and percussion. No rales, rhonchi or wheezes noted. No increased work of breathing, no retractions or nasal flaring. Abdomen/GI: Soft, non-tender, with normal bowel sounds. No distension or tympany. No guarding or rebound. No evidence of tenderness throughout. Back: No spinal tenderness. No costovertebral tenderness. Full range of motion. Skin: Warm, dry with normal turgor. Normal color with no rashes, no lesions, and no evidence of cellulitis. Neuro: Awake and alert, GCS 15, oriented to person, place, time, and situation. Cranial nerves II-XII grossly intact. Motor strength 5/5 in all extremities. Sensory grossly intact. Cerebellar exam normal. Normal gait. Psych: Awake, alert, with orientation to person, place and time. Behavior, mood, and affect are within normal limits. 14:29 Musculoskeletal/extremity: ROM: intact in all extremities, full active range of motion, full passive range of motion, Circulation is intact in all extremities. Sensation intact. DVT Exam: no swelling, no tenderness, negative Homans' sign noted on exam, no appreciated bluish discoloration, no erythema, no increased warmth, pain. Vital Signs: 13:51 BP 127 / 89; Pulse 94; Resp 16; Temp 98.1(O); Pulse Ox 98% ; Weight 70.31 kg; Height 5 hb ft. 3 in. (160.02 cm); Pain 5/10; 13:51 Body Mass Index 27.46 (70.31 kg, 160.02 cm) hb MDM: 14:07 Patient medically screened. [facility] 14:32 Data reviewed: vital signs, nurses notes. [facility] 08/04 14:06 Order name: Labs collected and sent; Complete Time: 14:26 tw4 Administered Medications: 14:25 Not Given (Duplicate Order): Zofran 4 mg IVP once; over 2 minutes [facility] 14:25 Not Given (Duplicate Order): NS 0.9% 1000 ml IV at 1 bolus Per protocol; 1000 mL bolus [facility] 14:47 Drug: Bactrim (160 mg-800 mg (DS) 1 tablet Route: PO; ls4 15:01 Follow up: Response: No adverse reaction ls4 14:56 Drug: Nystatin-Triamcinolone 1 application Route: Topical; Site: affected area; ls4 Disposition: 08/04/19 14:34 Discharged to Home. Impression: Weakness, Scratched by cat, Cat-scratch disease. - Condition is Stable. - Discharge Instructions: Cat-Scratch Disease, Weakness, Fatigue, Weakness, [id number]. - Prescriptions for Nystatin- Triamcinolone 100,000-0.1 unit/g-% Topical Cream - apply 1 application by TOPICAL route 2 times per day; 30 gram. Zithromax Z- Aramis 250 mg Oral Tablet - take 1 tablet by ORAL route as directed for 5 days Day 1 - take two (2) tablets one time. Day 2, 3, 4 , 5 take one (1) tablet once daily.; 6 tablet. Bactrim DS 800- 160 mg Oral Tablet - take 1 tablet by ORAL route every 12 hours for 10 days; 20 tablet. - Medication Reconciliation Form, Thank You Letter, Antibiotic Education, Prescription Opioid Use form. - Follow up: Private Physician; When: 2 - 3 days; Reason: Recheck today's complaints, Continuance of care, Re-evaluation by your physician. - Problem is new. - Symptoms have improved. Signatures: Dispatcher [employer] EDAK Micha Boyer MD MD cha Baxter, Heather, RN RN Artem Mcmahon MD MD tw4 Megan Torres, RN RN ls4 Corrections: (The following items were deleted from the chart) 14:26 14:06 IV Saline Lock ordered. steve nuno 15:02 14:34 08/04/2019 14:34 Discharged to Home. Impression: Weakness; Scratched by cat; ls4 Cat-scratch disease. Condition is Stable. Forms are Medication Reconciliation Form, Thank You Letter, Antibiotic Education, Prescription Opioid Use. Follow up: Private Physician; When: 2 - 3 days; Reason: Recheck today's complaints, Continuance of care, Re-evaluation by your physician. Problem is new. Symptoms have improved. yaakov
[2019-08-04] MEDS ORDERED: SMZ./TMP. 800/160 MG TABLET ONE (14:44)
[2019-08-04] MEDS ORDERED: NYSTATIN/TRIAMCIN OINT 15 GM TOP ONE (15:00)
[2019-08-04 15:53] VITALS: BP 127/89; TEMP 98.1; O2SAT 98
== END 2019-08-04 15:02 | disposition home or self-care (01) ==
LOC: ER 13:36
DX: A28.1 Cat-scratch disease (principal); W55.03XA Scratched by cat, initial encounter; Y93.9 Activity, unspecified; Y92.9 Unspecified place or not applicable; F17.210 Nicotine dependence, cigarettes, uncomplicated
CPT/HCPCS: 99283

== ENCOUNTER 2019-12-18 13:59 | Emergency (ER) | payer BC ==
[2019-12-18 15:22] LABS: Urine Blood 1+ (NEG); Urine Glucose NEGATIVE (NEG); Urine Protein NEGATIVE (NEG)
--- NOTE | 2019-12-18 15:58 | RAD REPORT ---
EXAM DESCRIPTION: CT - Stone Protocol - 12/18/2019 3:39 pm CLINICAL HISTORY: Flank pain. ABD PAIN COMPARISON: Abdomen Pelvis W Contrast dated 01/12/2018 TECHNIQUE: Axial images were obtained without oral or IV contrast. Lack of contrast limits solid org an and vascular assessment. The [id number] spans the entirety of the system partially obscuring uppermost abdomen and lung bases. Coronal reformatted images were obtained and reviewed. All CT scans are performed using dose optimization technique as appropriate and may include automated exposure control or mA/KV adjustment according to patient size. FINDINGS: The lower lung clark are clear. Imaged portions of the liver and spleen show no suspicious findings on non-contrast imaging. The panc reas and adrenal glands are normal. No pathologic lymphadenopathy in the abdomen or pelvis. No urinary tract stones or obstructive uropathy. No bowel obstruction, free air, free fluid or abscess. Normal appendix noted. No significant bony abnormality. IMPRESSION: No urinary tract stones or obstructive uropathy.
--- NOTE | 2019-12-18 16:00 | RAD REPORT ---
EXAM DESCRIPTION: RAD - Chest Pa And Lat (2 Views) - 12/18/2019 3:39 pm CLINICAL HISTORY: COUGH Chest pain. COMPARISON: Chest Single View dated 09/21/2018; Chest Single View dated 12/08/2015 FINDINGS: The lungs are clear. The heart is normal in size. No displaced fractures. IMPRESSION: No acute or concerning finding suspected.
[2019-12-18 16:09] LABS: Urine Mucus 2+ /HPF (NONE SEEN)
[2019-12-18 16:10] LABS: Urine Bacteria <20 /HPF (<20); Urine Culture Reflex Order REFLEXED
[2019-12-18] MEDS ORDERED: ONDANSETRON 4 MG (ODT) TAB ONE (16:39)
--- NOTE | 2019-12-18 17:10 | EDPHYS ---
Physician Documentation [facility] Name: Dottie Blanca Age: 39 yrs Sex: Female : 1980 Arrival Date: 12/18/2019 Time: 14:01 Bed 7 Private MD: ED Physician Ld Hagen HPI: 12/17 15:42 This 39 yrs old Female presents to ER via Ambulatory with complaints of snw Abdominal Problem, Nausea. 15:42 The patient presents with abdominal pain. Onset: The symptoms/episode began/occurred 1 snw week(s) ago, and became persistent. The symptoms do not radiate. Associated signs and symptoms: Pertinent positives: nausea, vomiting, and diarrhea, chest pain, dysuria, cough, left upper quad pain, pain between shoulder blades. The symptoms are described as sharp. Severity of pain: At its worst the pain was severe. The patient has not experienced similar symptoms in the past. CoVid 19 tested today at [facility]. 15:47 Hx of Tubal, hysterectomy, smokes 1 ppd. 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 - Social history:: Smoking status: Patient/guardian denies using. ROS: 15:39 Eyes: Negative for injury, pain, redness, and discharge. snw 15:39 Neck: Negative for injury, pain, and swelling, Cardiovascular: Negative for chest pain, palpitations, and edema. 15:39 Back: Negative for injury and pain, : Negative for injury, bleeding, discharge, and swelling, MS/Extremity: Negative for injury and deformity, Skin: Negative for injury, rash, and discoloration, Neuro: Negative for headache, weakness, numbness, tingling, and seizure. 15:39 Constitutional: Positive for body aches, fatigue, malaise, poor PO intake, weight loss. 15:39 ENT: Positive for nasal discharge, sinus congestion. 15:39 Respiratory: Positive for cough, with no reported sputum. 15:39 Abdomen/GI: Positive for abdominal pain, vomiting, diarrhea, abdominal cramps, of the left upper quadrant. Exam: 15:21 Head/Face: Normocephalic, atraumatic. Eyes: Pupils equal round and reactive to light, snw extra-ocular motions intact. Lids and lashes normal. Conjunctiva and sclera are non-icteric and not injected. Cornea within normal limits. Periorbital areas with no swelling, redness, or edema. ENT: Nares patent. No nasal discharge, no septal abnormalities noted. Tympanic membranes are normal and external auditory canals are clear. Oropharynx with no redness, swelling, or masses, exudates, or evidence of obstruction, uvula midline. Mucous membranes moist. Neck: Trachea midline, no thyromegaly or masses palpated, and no cervical lymphadenopathy. Supple, full range of motion without nuchal rigidity, or vertebral point tenderness. No Meningismus. Chest/axilla: Normal chest wall appearance and motion. Nontender with no deformity. No lesions are appreciated. Cardiovascular: Regular rate and rhythm with a normal S1 and S2. No gallops, murmurs, or rubs. Normal PMI, no JVD. No pulse deficits. Respiratory: Lungs have equal breath sounds bilaterally, clear to auscultation and percussion. No rales, rhonchi or wheezes noted. No increased work of breathing, no retractions or nasal flaring. Back: No spinal tenderness. No costovertebral tenderness. Full range of motion. Skin: Warm, dry with normal turgor. Normal color with no rashes, no lesions, and no evidence of cellulitis. MS/ Extremity: Pulses equal, no cyanosis. Neurovascular intact. Full, normal range of motion. Neuro: Awake and alert, GCS 15, oriented to person, place, time, and situation. Cranial nerves II-XII grossly intact. Motor strength 5/5 in all extremities. Sensory grossly intact. Cerebellar exam normal. Normal gait. Psych: Awake, alert, with orientation to person, place and time. Behavior, mood, and affect are within normal limits. 15:21 Constitutional: The patient appears alert, awake, anxious. 15:21 Abdomen/GI: Inspection: abdomen appears normal, Bowel sounds: hyperactive, in the left upper quadrant, Palpation: moderate abdominal tenderness, in the left upper quadrant. Vital Signs: 15:10 BP 138 / 64; Pulse 90; Resp 18; Pulse Ox 99% ; Weight 61.69 kg; Height 5 ft. 3 in. dm5 (160.02 cm); Pain 0/10; 15:44 BP 110 / 88; Pulse 92; Resp 20; Pulse Ox 94% ; Weight 62.6 kg; Height 5 ft. 6 in. snw (167.64 cm); Pain 8/10; 16:20 BP 111 / 75; Pulse 81; Resp 17; Pulse Ox 98% on R/A; rb1 17:20 BP 100 / 76; Pulse 80; Resp 16; Pulse Ox 96% ; rb1 15:44 Body Mass Index 22.27 (62.60 kg, 167.64 cm) snw [place] Coma Score: 15:44 Eye Response: spontaneous(4). Verbal Response: oriented(5). Motor Response: obeys snw commands(6). Total: 15. MDM: 15:05 Patient medically screened. snw 17:11 Data reviewed: vital signs, nurses notes. Data interpreted: Pulse oximetry: on room air snw is 94 %. Interpretation: acceptable. Counseling: I had a detailed discussion with the patient and/or guardian regarding: the historical points, exam findings, and any diagnostic results supporting the discharge/admit diagnosis, lab results, radiology results, the need for outpatient follow up, to return to the emergency department if symptoms worsen or persist or if there are any questions or concerns that arise at home, smoking cessation. Special discussion: Based on the history and exam findings, there is no indication for further emergent testing or inpatient evaluation. I discussed with the patient/guardian the need to see the retail stock clerk for further evaluation of the symptoms. I discussed with the patient/guardian the need to see the primary care provider for further evaluation of the symptoms. 12/17 15:05 Order name: Urine Microscopic Only; Complete Time: 16:17 snw 12/17 15:18 Order name: Urine Dipstick--Ancillary (enter results) wa 12/17 15:06 Order name: Chest Pa And Lat (2 Views) XRAY; Complete Time: 16:04 snw 12/17 15:23 Order name: CT Stone Protocol; Complete Time: 16:04 snw 12/17 16:12 Order name: Urine Culture EDIA 12/17 15:05 Order name: Urine Dipstick-Ancillary (obtain specimen); Complete Time: 16:04 snw Administered Medications: 16:40 Drug: Zofran (Ondansetron) 4 mg Route: PO; rb1 17:15 Follow up: Response: No adverse reaction; Nausea is decreased rb1 17:35 Drug: Bentyl 20 mg Route: PO; rb1 17:42 Follow up: Response: Medication administered at discharge. rb1 Disposition: 12/18 08:45 Co-signature as Attending Physician, Ld Hagen MD I agree with the assessment and kdr plan of care. Disposition: 12/18/19 17:10 Discharged to Home. Impression: Pylorospasm, not elsewhere classified, Upper abdominal pain, unspecified, Vomiting, unspecified, Diarrhea, unspecified. - Condition is Stable. - Discharge Instructions: Abdominal Pain, Adult, Food Choices to Help Relieve Diarrhea, Adult, Diarrhea, Adult, Food Choices for Gastroesophageal Reflux Disease, Adult, Clear Liquid Diet, Adult, Nausea and Vomiting, Adult, Rehydration, Adult. - Prescriptions for Bentyl 20 mg Oral Tablet - take 1 tablet by ORAL route every 6 hours As needed; 20 tablet. Zofran 4 mg Oral Tablet - take 1 tablet by ORAL route every 12 hours As needed; 20 tablet. - Work release form, Medication Reconciliation Form, Thank You Letter, Antibiotic Education, Prescription Opioid Use form. - Follow up: Meir Breen MD; When: 1 week; Reason: Recheck today's complaints, Continuance of care, Re-evaluation by your physician. Follow up: Emergency Department; When: As needed; Reason: Worsening of condition. Signatures: Dispatcher [facility] Kimberly Parrish, RN RN dm5 Ld Hagen MD MD [facility] Aicha Alejo, WARE TESTER-C WARE TESTER-Csnw Quin Pena, RN RN rb1 Corrections: (The following items were deleted from the chart) 12/17 17:42 17:10 12/18/2019 17:10 Discharged to Home. Impression: Pylorospasm, not elsewhere rb1 classified; Upper abdominal pain, unspecified; Vomiting, unspecified; Diarrhea, unspecified. Condition is Stable. Forms are Medication Reconciliation Form, Thank You Letter, Antibiotic Education, Prescription Opioid Use. Follow up: Meir Breen; When: 1 week; Reason: Recheck today's complaints, Continuance of care, Re-evaluation by your physician. Follow up: Emergency Department; When: As needed; Reason: Worsening of condition. snw
--- NOTE | 2019-12-18 17:10 | ER ---
Nurse's Notes [facility] Name: Dottie Blanca Age: 39 yrs Sex: Female : 1980 Arrival Date: 12/18/2019 Time: 14:01 Bed 7 Private MD: Diagnosis: Pylorospasm, not elsewhere classified;Upper abdominal pain, unspecified;Vomiting, unspecified;Diarrhea, unspecified Presentation: 12/17 15:10 Initial Sepsis Screen: Does the patient meet any 2 criteria? No. Patient's initial rb1 sepsis screen is negative. Does the patient have a suspected source of infection? Yes: Acute abdominal pain. 15:22 Chief complaint: Patient states: upper abd pain (LUQ), n/v/d, cough, sweaty, has lost dm5 20 lbs in the last 2 weeks. Was tested for COVID in [place], results pending. Coronavirus screen: Surgical mask placed on patient. Patient moved to private room, placed in contact and droplet isolation with eye protection until further assessment. Patient reports a cough. Patient denies shortness of breath or difficulty breathing. Patient reports a measured and/or subjective temperature greater than 100.4F. Patient denies travel on a cruise ship or to a country the [facility] currently lists as an affected area. Patient denies contact with known and/or suspected case of COVID-19. Ebola Screen: No symptoms or risks identified at this time. Risk Assessment: Do you want to hurt yourself or someone else? Patient reports no desire to harm self or others. Onset of symptoms was November 2019. 15:22 Method Of Arrival: Ambulatory dm5 15:22 Acuity: RENETTA 3 dm5 Triage Assessment: 12/18 15:50 General: Appears in no apparent distress. Behavior is cooperative, anxious, Reports dm5 feeling ill for fatigue for. Pain: Denies pain. EENT: No deficits noted. Neuro: No deficits noted. Cardiovascular: No deficits noted. Respiratory: No deficits noted. GI: Abdomen is flat, Bowel sounds present X 4 quads. Guarding noted in left upper quadrant Mass noted in epigastric area Reports vomiting, Patient currently denies anorexia, nausea. : No deficits noted. Derm: No deficits noted. Musculoskeletal: No deficits noted. 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 - Social history:: Smoking status: Patient/guardian denies using. Screenin:10 Abuse screen: Denies threats or abuse. Nutritional screening: Has had N/V for 3 or more rb1 days. Tuberculosis screening: No symptoms or risk factors identified. Fall Risk None identified. Assessment: 15:10 General: Appears in no apparent distress. comfortable, Behavior is calm, cooperative, rb1 Reports chills for fatigue for x 10 days. Denies fever. Pain: Complains of pain in left upper quadrant Pain currently is 10 out of 10 on a pain scale. Pain began x 10 days. Neuro: Level of Consciousness is awake, alert, obeys commands, Oriented to person, place, time, situation. Cardiovascular: Capillary refill < 3 seconds. Respiratory: Airway is patent Respiratory effort is even, unlabored, Respiratory pattern is regular, symmetrical. GI: Abdomen is non-distended, Bowel sounds present X 4 quads. Abd is soft Abdomen is tender to palpation in epigastric area and left upper quadrant Reports diarrhea, nausea, vomiting. : No signs and/or symptoms were reported regarding the genitourinary system. Derm: Skin is pink, warm \T\ dry. 16:10 Reassessment: Patient appears in no apparent distress at this time. No changes from rb1 previously documented assessment. 17:10 Reassessment: Patient appears in no apparent distress at this time. Patient and/or rb1 family updated on plan of care and expected duration. Pain level reassessed. Patient is alert, oriented x 3, equal unlabored respirations, skin warm/dry/pink. Pt. was talking on her telephone. Vital Signs: 15:10 BP 138 / 64; Pulse 90; Resp 18; Pulse Ox 99% ; Weight 61.69 kg; Height 5 ft. 3 in. dm5 (160.02 cm); Pain 0/10; 15:44 BP 110 / 88; Pulse 92; Resp 20; Pulse Ox 94% ; Weight 62.6 kg; Height 5 ft. 6 in. snw (167.64 cm); Pain 8/10; 16:20 BP 111 / 75; Pulse 81; Resp 17; Pulse Ox 98% on R/A; rb1 17:20 BP 100 / 76; Pulse 80; Resp 16; Pulse Ox 96% ; rb1 15:44 Body Mass Index 22.27 (62.60 kg, 167.64 cm) snw [place] Coma Score: 15:44 Eye Response: spontaneous(4). Verbal Response: oriented(5). Motor Response: obeys snw commands(6). Total: 15. ED Course: 14:01 Patient arrived in ED. ag5 15:05 [facility]ich[facility] Ale[facility]C [facility]. snw 15:05 Ld Hagen MD is Attending Physician. snw 15:10 Patient has correct armband on for positive identification. Bed in low position. Call rb1 light in reach. Side rails up X 1. Pulse ox on. NIBP on. 15:24 Triage completed. dm5 15:25 Arm band placed on. dm5 15:39 Chest Pa And Lat (2 Views) XRAY In Process Unspecified. EDMS 15:40 CT Stone Protocol In Process Unspecified. EDMS 16:03 Quin Pena, RN is Primary Nurse. rb1 16:26 Urine Culture Sent. bp 17:09 Meir Breen MD is Referral Physician. snw 17:42 No provider procedures requiring assistance completed. Patient did not have IV access rb1 during this emergency room visit. Administered Medications: 16:40 Drug: Zofran (Ondansetron) 4 mg Route: PO; rb1 17:15 Follow up: Response: No adverse reaction; Nausea is decreased rb1 17:35 Drug: Bentyl 20 mg Route: PO; rb1 17:42 Follow up: Response: Medication administered at discharge. rb1 Outcome: 17:10 Discharge ordered by . snw 17:42 Patient left the ED. rb1 17:42 Discharged to home ambulatory. rb1 17:42 Condition: stable 17:42 Discharge instructions given to patient, Instructed on discharge instructions, follow up and referral plans. medication usage, Demonstrated understanding of instructions, follow-up care, medications, Prescriptions given X 2. Signatures: Dispatcher [employer] EDNE Kimberly Parrish RN RN dm5 Aicha Alejo FNP-C LICENSED FUNERAL DIRECTOR-Csnw Quin Pena, ISAEL KIRKLAND rb1 Juan Reyna RN RN Jayce Dupontjanina ag5
[2019-12-18] MEDS ORDERED: DICYCLOMINE HCL 10 MG CAP ONE (17:38)
[2019-12-18 18:00] VITALS: BP 110/88; O2SAT 94
== END 2019-12-18 17:42 | disposition home or self-care (01) ==
LOC: ER 13:59
DX: K31.3 Pylorospasm, not elsewhere classified (principal); R11.10 Vomiting, unspecified; R19.7 Diarrhea, unspecified
CPT/HCPCS: 71046; 74176; 76377; 81003; 81015; 87086; 87088; 99284

== ENCOUNTER 2020-01-19 09:28 | Day surgery (SDC) | payer BC ==
[2020-01-16 11:22] LABS: Absolute Lymphocytes (CBC) 3.2 K/uL (0.7-4.9); Basophils % 0.8 % (0-1.3); Hematocrit 38.8 % (36.0-45.0); Lymphocytes % 23.8 % (15.3-44.8); MPV 9.1 fL (7.6-11.3); RBC Red Blood Cell Count 4.37 M/uL (3.86-4.86)
[2020-01-16 11:34] LABS: BUN Blood Urea Nitrogen 10 mg/dL (7-18); Bicarbonate 26 mmol/L (21-32); Glucose Level 87 mg/dL (74-106); Sodium Level 142 mmol/L (136-145)
[2020-01-19] MEDS ORDERED: Ringers Lactate 1,000 ML IV ONE ×2 (09:48→13:18)
[2020-01-19] MEDS: CEFAZOLIN/SWI 1gm 1 GM/10 ML SYR ONE ×2 (09:57→11:50)
[2020-01-19] MEDS ORDERED: MIDAZOLAM HCL 2 MG/2 ML INJ ONE (10:56)
[2020-01-19] MEDS ORDERED: propofoL 200 MG/20 ML VIAL IV ONE (10:56)
[2020-01-19] MEDS ORDERED: dexAMETHasone 10 MG/ML VIAL ONE (10:56)
[2020-01-19] MEDS ORDERED: LIDOCAINE 2% MPF 5 ML VIAL ONE (10:56)
[2020-01-19] MEDS ORDERED: FENTANYL CITR 100 MCG/2 ML ONE ×2 (10:56→12:19)
[2020-01-19] MEDS ORDERED: ONDANSETRON 4 MG/2 ML VIAL ONE ×2 (10:57→13:13)
[2020-01-19] MEDS ORDERED: ROCURONIUM 50 MG/5 ML VIAL IV ONE (10:57)
[2020-01-19] MEDS ORDERED: EPHEDRINE SULF 50 MG/ML VIAL ONE (12:06)
[2020-01-19] MEDS ORDERED: GLYCOPYRROLATE 0.2 MG/ML SYR ONE ×2 (12:09→12:35)
[2020-01-19] MEDS ORDERED: KETOROLAC 30 MG/ML INJ ONE (12:35)
[2020-01-19] MEDS ORDERED: NEOSTIGMINE 1 MG/ML -5 ML ONE (12:36)
[2020-01-19] MEDS: HYDROMORPHONE HCL 2 MG/ML inj ONE ×4 (13:05→13:20)
[2020-01-19] MEDS ORDERED: HYDROCODONE/APAP 7.5/325 MG TAB ONE (14:12)
[2020-01-19] MEDS ORDERED: PROMETHAZINE INJ 25 MG/ML AMP IV ONE (14:18)
[2020-01-19] MEDS ORDERED: PROMETHAZINE INJ 25 MG/ML AMP ONE (14:22)
[2020-01-19 14:57] VITALS: BP 122/68; TEMP 97.4; O2SAT 100
--- NOTE | 2020-01-19 22:40 | OP ---
Date of Procedure: 01/19/2020 Surgeon: Chris Ortega MD [facility] Advocate: MAI Deras Preoperative Diagnosis: Ventral hernia. Postoperative Diagnosis: Ventral hernia. Procedure: Diagnostic laparoscopy and repair of ventral hernia. Estimated Blood Loss: Minimal. Specimens: Hernia sac. Findings: As above. Anesthesia: General. Complications: None. The patient tolerated the procedure in stable condition, taken to Recovery in good general condition. Description Of Procedure: The patient was brought to the OR and placed in supine position. General anesthesia was begun. The patient was prepped and draped in usual sterile fashion. Marcaine 0.5% wa s infiltrated locally. A 15-blade was used to make a 1 cm supraumbilical midline incision. Subcutan eous tissue was divided. Fascia was identified and divided. #1 Vicryl stay suture was placed. Nicole toneal cavity was entered with sharp and blunt dissection. Laparoscopy revealed falciform ligament w ithin the open end that appeared to be wherever the fat was finally going in and out causing the jonatan ent discomfort. So at this point, a 3 cm incision was made over the insertion of the falciform ligam ent to the midline. Subcutaneous tissue was divided. A large hernia sac identified, freed from the surrounding tissue, excised, sent to Pathology as specimen and the base of the falciform ligament tie d of with 2 0 silk ties. A 2.5 cm defect remained and then #1 Prolene was used to close the fascia. It was closed to the liver edge and would not be able to get a good coverage with mesh at this time plus the hole was small, so I opted not to use the mesh. Laparoscopy was reperformed. Complete cove rage of the midline was accomplished. No evidence of bleeding or bowel injury appreciated. Subseque ntly, stay sutures were tied to each other to reapproximate the fascial defect. Subcutaneous wounds were irrigated. Bleeding controlled with cautery. 3-0 chromic used to approximate the subcutaneous tissue and close the skin. Sterile dressing was applied. The patient was awakened and taken to [facility] very in good general condition. Discharge Note: The patient will go to Day Surgery and home when stable. Disposition: Home. Condition: Stable. Discharge Instructions: Resume home medications and diet. Activity as tolerated. No heavy lifting. Remove outer dressing in 2 days. Shower. Keep wound clean and dry. Keep Steri-Strips on at all t imes. Incentive spirometry as ordered and abdominal binder as ordered. /MODL Voice ID: [id number] Report ID: [id number]
== END 2020-01-19 15:27 | disposition home or self-care (01) ==
LOC: OR 09:28
PROVIDERS: ATTEND Surgery
PROC: 0WQF0ZZ Repair Abdominal Wall, Open Approach (ICD-10-PCS; principal; 2020-01-19 11:15)
DX: K43.9 Ventral hernia without obstruction or gangrene (principal); Z11.59 Encounter for screening for other viral diseases; F17.210 Nicotine dependence, cigarettes, uncomplicated
CPT/HCPCS: 85025; 80048; 36415; 88302; 49560; U0002; J2704; J2550 ×2; J2250; J1170; J3010 ×2; J1100; J2710; J0690; J7120 ×2; J2405 ×2

== ENCOUNTER 2020-05-06 11:10 | Emergency (ER) | payer BC ==
[2020-05-06] MEDS ORDERED: ASPIRIN EC 81 MG TAB PO ONE (11:58)
[2020-05-06 12:22] LABS: Absolute Lymphocytes (CBC) 2.4 K/uL (0.7-4.9); Basophils % 0.5 % (0-1.3); Hematocrit 39.6 % (36.0-45.0); MPV 8.2 fL (7.6-11.3); RBC Red Blood Cell Count 4.43 M/uL (3.86-4.86)
--- NOTE | 2020-05-06 12:38 | RAD REPORT ---
EXAM DESCRIPTION: CT - Chest For Pe Angio - 05/06/2020 12:29 pm CLINICAL HISTORY: Chest pain. Chest pain;Dyspnea COMPARISON: Chest For Pe Angio dated 09/21/2018 TECHNIQUE: CT angiogram of the pulmonary arteries was performed with MIP. All CT scans are performed using dose optimization technique as appropriate and may include automated exposure control or mA/KV adjustment according to patient size. FINDINGS: No evidence of pulmonary thromboembolism. No acute aortic finding demonstrated. Minimal opacity is noted in left lower lobe laterally which may represent small area of alveolitis. No significant pericardial or pleural fluid. No concerning bony finding. IMPRESSION: No evidence of pulmonary thromboembolism.
--- NOTE | 2020-05-06 12:45 | RAD REPORT ---
EXAM DESCRIPTION: RAD - Chest Single View - 05/06/2020 12:22 pm CLINICAL HISTORY: CHEST PAIN Chest pain. COMPARISON: Chest Pa And Lat (2 Views) dated 01/02/2020; Chest Pa And Lat (2 Views) dated 12/18/2019; C hest Single View dated 09/21/2018; Chest Single View dated 12/08/2015 FINDINGS: Portable technique limits examination quality. The lungs are grossly clear. The heart is normal in size. No displaced fractures. IMPRESSION: No acute intrathoracic process suspected.
[2020-05-06 13:03] LABS: Urine Blood TRACE (NEG); Urine Glucose NEGATIVE (NEG); Urine Protein NEGATIVE (NEG); Urine Specific Gravity 1.025 (1.005-1.030); Urine pH 5.5 (5.0-7.0)
[2020-05-06 13:12] LABS: Barbiturates NEGATIVE (NEGATIVE); Benzodiazepines NEGATIVE (NEGATIVE); Cocaine NEGATIVE (NEGATIVE); METHAMPHETAM NEGATIVE (NEGATIVE); Methadone NEGATIVE (NEGATIVE); Opiates NEGATIVE (NEGATIVE); Phencyclidine NEGATIVE (NEGATIVE); THC Cannibis POSITIVE (NEGATIVE)
[2020-05-06 13:17] LABS: ALT/SGPT 21 U/L (12-78); AST/SGOT 13 U/L (15-37); Albumin 4.3 g/dL (3.4-5.0); Alkaline Phosphatase 91 U/L (45-117); BUN Blood Urea Nitrogen 11 mg/dL (7-18); Bicarbonate 24 mmol/L (21-32); Bilirubin Direct < 0.1 mg/dL (0-0.2); Bilirubin Total 0.4 mg/dL (0.2-1.0); Glucose Level 79 mg/dL (74-106); Lipase 144 U/L (73-393); Magnesium 2.1 mg/dL (1.8-2.4); Potassium 3.9 mmol/L (3.5-5.1); Protein, Total 8.9 g/dL (6.4-8.2); Sodium Level 136 mmol/L (136-145); Troponin (Emerg Dept Use Only) < 0.02 ng/mL (0.0-0.045)
--- NOTE | 2020-05-06 13:23 | ER ---
Nurse's Notes [facility] Name: Dottie Blanca Age: 39 yrs Sex: Female : 1980 Arrival Date: 05/06/2020 Time: 11:11 Bed 4 Private MD: Diagnosis: Other chest pain-wall;Urinary tract infection, site not specified Presentation: 05/06 11:21 Chief complaint: Patient states: left sided chest pain, radiates from left breast into iw back shoulder blade, constant for one week, feels like burning pain , was worse today. Coronavirus screen: At this time, the client does not indicate any symptoms associated with coronavirus-19. Ebola Screen: Patient negative for fever greater than or equal to 101.5 degrees Fahrenheit, and additional compatible Ebola Virus Disease symptoms Patient denies exposure to infectious person. Patient denies travel to an Ebola-affected area in the 21 days before illness onset. No symptoms or risks identified at this time. Initial Sepsis Screen: Does the patient meet any 2 criteria? No. Patient's initial sepsis screen is negative. Does the patient have a suspected source of infection? No. Patient's initial sepsis screen is negative. Risk Assessment: Do you want to hurt yourself or someone else? Patient reports no desire to harm self or others. Onset of symptoms was April 29, 2020. 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 - Social history:: Smoking status: Patient reports the use of cigarette tobacco products, smokes one pack cigarettes per day. - Family history:: not pertinent. Screenin:33 Abuse screen: Denies threats or abuse. Nutritional screening: No deficits noted. ll2 Tuberculosis screening: No symptoms or risk factors identified. Fall Risk None identified. Assessment: 11:31 General: Appears in no apparent distress. Behavior is cooperative, appropriate for age, ll2 anxious. Pain: Complains of pain in left lower quadrant Pain does not radiate. Pain began suddenly. Neuro: Level of Consciousness is awake, alert, obeys commands, Oriented to person, place, time, situation. Cardiovascular: Patient's skin is warm and dry. Rhythm is sinus rhythm. Respiratory: Airway is patent Respiratory effort is even, unlabored, Respiratory pattern is regular, symmetrical. GI: No signs and/or symptoms were reported involving the gastrointestinal system. : No signs and/or symptoms were reported regarding the genitourinary system. EENT: No signs and/or symptoms were reported regarding the EENT system. Derm: Skin is healthy with good turgor, Skin is pink, warm \T\ dry. Musculoskeletal: Circulation, motion, and sensation intact. Range of motion: intact in all extremities. 12:19 Reassessment: Patient and/or family updated on plan of care and expected duration. Pain ll2 level reassessed. Patient is alert, oriented x 3, equal unlabored respirations, skin warm/dry/pink. 13:00 Reassessment: Patient and/or family updated on plan of care and expected duration. Pain ll2 level reassessed. Patient is alert, oriented x 3, equal unlabored respirations, skin warm/dry/pink. Vital Signs: 11:33 BP 135 / 88; Pulse 87; Resp 16; Pulse Ox 100% on R/A; ll2 12:30 BP 109 / 72; Pulse 75; Resp 12; Pulse Ox 100% on R/A; ll2 13:30 BP 108 / 79; Pulse 80; Resp 12; Pulse Ox 100% on R/A; ll2 ED Course: 11:11 Patient arrived in ED. as 11:14 Micha Boyer MD is Attending Physician. yaakov 11:22 Triage completed. iw 11:23 Arm band placed on. iw 11:31 Kori Cho, ISAEL is Primary Nurse. ll2 11:33 Patient has correct armband on for positive identification. bag machine tender on. Pulse ll2 ox on. NIBP on. Warm blanket given. 11:34 No provider procedures requiring assistance completed. Patient maintains SpO2 ll2 saturation greater than 95% on room air. 12:22 Initial lab(s) drawn, by me, sent to lab. Inserted saline lock: 20 gauge in right ll2 antecubital area, using aseptic technique. Blood collected. 12:23 XRAY Chest (1 view) In Process Unspecified. EDMS 12:27 CT completed. Patient tolerated procedure well. Patient moved to CT via wheelchair. Patient moved back from CT. 12:29 CT Chest For PE Angio In Process Unspecified. EDMS 13:22 Ruddy Aparicio MD is Referral Physician. [facility] 13:47 IV discontinued, intact, bleeding controlled, No redness/swelling at site. Pressure ll2 dressing applied. Administered Medications: 12:19 Drug: Aspirin 81 mg Route: PO; ll2 12:40 Follow up: Response: No adverse reaction ll2 13:24 Drug: Rocephin 1 grams Route: IV; Rate: per protocol; Site: right antecubital; ll2 13:25 Follow up: Response: No adverse reaction; IV Status: Completed infusion; IV Intake: [id number] Intake: 13:25 IV: 10ml; Total: 10ml. ll2 Outcome: 13:22 Discharge ordered by MD. yaakov 13:46 Discharged to home ambulatory. ll2 13:46 Condition: stable 13:46 Discharge instructions given to patient, Instructed on discharge instructions, follow up and referral plans. medication usage, Demonstrated understanding of instructions, follow-up care, medications, Prescriptions given X 1. 13:47 Patient left the ED. ll2 Signatures: Dispatcher [employer] EDNC Micha Boyer MD MD cha Jones, Bárbara Chong Irene, ISAEL RN Kori Stone RN RN ll2
--- NOTE | 2020-05-06 13:23 | EDPHYS ---
Physician Documentation [facility] Name: Dottie Blanca Age: 39 yrs Sex: Female : 1980 Arrival Date: 05/06/2020 Time: 11:11 Bed 4 Private MD: ED Physician Micha Boyer HPI: 05/06 11:41 This 39 yrs old Female presents to ER via Ambulatory with complaints of Chest yaakov Pain. 11:41 The patient or guardian reports chest pain that is located primarily in the anterior yaakov chest wall, left. Onset: 5 day(s) ago. The pain radiates to left back. Associated signs and symptoms: Pertinent positives: shortness of breath. The chest pain is described as sharp. Duration: The patient or guardian reports multiple episodes, with no pattern. Modifying factors: The symptoms are alleviated by nothing. the symptoms are aggravated by deep breath, movement. Severity of pain: At its worst the pain was moderate in the emergency department the pain is unchanged. The patient has not experienced similar symptoms in the past. 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 - Social history:: Smoking status: Patient reports the use of cigarette tobacco products, smokes one pack cigarettes per day. - Family history:: not pertinent. ROS: 11:41 Constitutional: Negative for fever, chills, and weight loss, Eyes: Negative for injury, yaakov pain, redness, and discharge, ENT: Negative for injury, pain, and discharge, Neck: Negative for injury, pain, and swelling, Cardiovascular: Negative for chest pain, palpitations, and edema, Respiratory: Negative for shortness of breath, cough, wheezing, and pleuritic chest pain, Abdomen/GI: Negative for abdominal pain, nausea, vomiting, diarrhea, and constipation, Back: Negative for injury and pain, : Negative for injury, bleeding, discharge, and swelling, MS/Extremity: Negative for injury and deformity, Skin: Negative for injury, rash, and discoloration, Neuro: Negative for headache, weakness, numbness, tingling, and seizure, Psych: Negative for depression, anxiety, suicide ideation, homicidal ideation, and hallucinations, Allergy/Immunology: Negative for hives, rash, and allergies, Endocrine: Negative for neck swelling, polydipsia, polyuria, polyphagia, and marked weight changes, Hematologic/Lymphatic: Negative for swollen nodes, abnormal bleeding, and unusual bruising. Exam: 11:43 Constitutional: This is a well developed, well nourished patient who is awake, alert, yaakov and in no acute distress. Head/Face: Normocephalic, atraumatic. Eyes: Pupils equal round and reactive to light, extra-ocular motions intact. Lids and lashes normal. Conjunctiva and sclera are non-icteric and not injected. Cornea within normal limits. Periorbital areas with no swelling, redness, or edema. ENT: Nares patent. No nasal discharge, no septal abnormalities noted. Tympanic membranes are normal and external auditory canals are clear. Oropharynx with no redness, swelling, or masses, exudates, or evidence of obstruction, uvula midline. Mucous membranes moist. Neck: Trachea midline, no thyromegaly or masses palpated, and no cervical lymphadenopathy. Supple, full range of motion without nuchal rigidity, or vertebral point tenderness. No Meningismus. Chest/axilla: Normal chest wall appearance and motion. Nontender with no deformity. No lesions are appreciated. Cardiovascular: Regular rate and rhythm with a normal S1 and S2. No gallops, murmurs, or rubs. Normal PMI, no JVD. No pulse deficits. Respiratory: Lungs have equal breath sounds bilaterally, clear to auscultation and percussion. No rales, rhonchi or wheezes noted. No increased work of breathing, no retractions or nasal flaring. Abdomen/GI: Soft, non-tender, with normal bowel sounds. No distension or tympany. No guarding or rebound. No evidence of tenderness throughout. Back: No spinal tenderness. No costovertebral tenderness. Full range of motion. Skin: Warm, dry with normal turgor. Normal color with no rashes, no lesions, and no evidence of cellulitis. MS/ Extremity: Pulses equal, no cyanosis. Neurovascular intact. Full, normal range of motion. Neuro: Awake and alert, GCS 15, oriented to person, place, time, and situation. Cranial nerves II-XII grossly intact. Motor strength 5/5 in all extremities. Sensory grossly intact. Cerebellar exam normal. Normal gait. Psych: Awake, alert, with orientation to person, place and time. Behavior, mood, and affect are within normal limits. 11:43 Musculoskeletal/extremity: Extremities: all appear grossly normal, with no appreciated pain with palpation, ROM: no acute changes, intact in all extremities, Circulation is intact in all extremities. Sensation intact. Compartment Syndrome exam of affected extremity: is normal. Joints: All joints appear normal with full range of motion. DVT Exam: No signs of deep vein thrombosis. no pain, no swelling, no tenderness, negative Homans' sign noted on exam, no appreciated bluish discoloration, no erythema, no increased warmth. 11:47 ECG was reviewed by the Attending Physician. [facility] Vital Signs: 11:33 BP 135 / 88; Pulse 87; Resp 16; Pulse Ox 100% on R/A; ll2 12:30 BP 109 / 72; Pulse 75; Resp 12; Pulse Ox 100% on R/A; ll2 13:30 BP 108 / 79; Pulse 80; Resp 12; Pulse Ox 100% on R/A; ll2 MDM: 11:14 Patient medically screened. [facility] 11:44 Differential diagnosis: abnormal EKG, acute pericarditis, anxiety, coronary artery yaakov disease chest wall pain, gastroesophageal reflux disease (GERD), pancreatitis, pleurisy, pneumonia, pneumothorax, pulmonary embolus, stable angina, unstable angina. HEART Score: History: Slightly Suspicious (0), ECG: Normal (0), Age: < or = 45 years (0), Risk Factors: No Risk Factors Known (0), Troponin: < or = 1 x Normal Limit (0). The patient was given aspirin in the Emergency Department. The patient's deep vein thrombosis risk score was calculated as follows: Total Score: 0. This patient was found to be at low risk for a deep vein thrombosis by using the Well's assessment criteria. The patient's pulmonary embolism risk score was calculated as follows: Total Score: 0-2 points. This patient was found to be at low risk for a pulmonary embolism by using the Well's assessment criteria. HEIDI Risk Score: TOTAL SCORE = 0. Data reviewed: vital signs, nurses notes, lab test result(s), EKG, radiologic studies, CT scan, plain films. Data interpreted: bodily injury adjuster: rate is 87 beats/min, Pulse oximetry: on room air is 10 %. Interpretation: normal. Test interpretation: by ED physician or midlevel provider: ECG, plain radiologic studies. 05/06 11:41 Order name: Basic Metabolic Panel; Complete Time: 13:22 [facility] 05/06 11:41 Order name: CBC with Diff; Complete Time: 12:44 [facility] 05/06 11:41 Order name: LFT's; Complete Time: 13:22 [facility] 05/06 11:41 Order name: Magnesium; Complete Time: 13:22 [facility] 05/06 11:41 Order name: Troponin (emerg Dept Use Only); Complete Time: 13:22 [facility] 05/06 11:41 Order name: Lipase; Complete Time: 13:22 [facility] 05/06 11:41 Order name: XRAY Chest (1 view); Complete Time: 13:05 [facility] 05/06 11:41 Order name: CT Chest For PE Angio; Complete Time: 12:44 [facility] 05/06 11:41 Order name: UDS; Complete Time: 13:17 [facility] 05/06 11:55 Order name: Urine Dipstick--Ancillary (enter results); Complete Time: 13:05 [facility] 05/06 11:55 Order name: Urine --Ancillary (enter results); Complete Time: 13:05 [facility] 05/06 13:06 Order name: Urine Culture [facility] 05/06 13:36 Order name: CREATININE WHOLE BLOOD [facility] 05/06 11:41 Order name: EKG; Complete Time: 11:42 [facility] 05/06 11:41 Order name: Cardiac monitoring; Complete Time: 13:04 [facility] 05/06 11:41 Order name: EKG - Nurse/Tech; Complete Time: 13:04 [facility] 05/06 11:41 Order name: IV Saline Lock [facility] 05/06 11:41 Order name: Labs collected and sent [facility] 05/06 11:41 Order name: O2 Per Protocol [facility] 05/06 11:41 Order name: O2 Sat Monitoring [facility] 05/06 11:41 Order name: Urine Dipstick-Ancillary (obtain specimen); Complete Time: 11:54 [facility] EC:47 Rate is 87 beats/min. Rhythm is regular. QRS [place] is Normal. OR interval is normal. QRS yaakov interval is normal. QT interval is normal. No Q waves. T waves are Normal. No ST changes noted. Clinical impression: NSR w/ Non-specific ST/T Changes and No evidence of ischemia. Interpreted by me. Reviewed by me. Administered Medications: 12:19 Drug: Aspirin 81 mg Route: PO; ll2 12:40 Follow up: Response: No adverse reaction ll2 13:24 Drug: Rocephin 1 grams Route: IV; Rate: per protocol; Site: right antecubital; ll2 13:25 Follow up: Response: No adverse reaction; IV Status: Completed infusion; IV Intake: [id number] Disposition: 05/06/20 13:22 Discharged to Home. Impression: Other chest pain - wall, Urinary tract infection, site not specified. - Condition is Stable. - Discharge Instructions: Nonspecific Chest Pain, Chest Wall Pain, Urinary Tract Infection, Adult, Urinary Tract Infection, Adult, [id number], Nonspecific Chest Pain, [id number], Aspirin and Your Heart. - Prescriptions for Cipro 250 mg Oral Tablet - take 1 tablet by ORAL route every 12 hours; 14 tablet. - Medication Reconciliation Form, Thank You Letter, Antibiotic Education, Prescription Opioid Use form. - Follow up: Private Physician; When: 2 - 3 days; Reason: Recheck today's complaints, Continuance of care, Re-evaluation by your physician. Follow up: Ruddy Aparicio; When: 2 - 3 days; Reason: Recheck today's complaints, Re-evaluation by your physician. - Problem is new. - Symptoms have improved. Signatures: Dispatcher [employer] EDMicha Romo MD MD cha Williams, Irene, ISAEL RN Kori Cho RN RN ll2 Corrections: (The following items were deleted from the chart) 13:47 13:22 05/06/2020 13:22 Discharged to Home. Impression: Other chest pain - wall; Urinary ll2 tract infection, site not specified. Condition is Stable. Discharge Instructions: Nonspecific Chest Pain, Chest Wall Pain, Urinary Tract Infection, Adult, Urinary Tract Infection, Adult, [id number], Nonspecific Chest Pain, [id number], Aspirin and Your Heart. Prescriptions for Cipro 250 mg Oral Tablet - take 1 tablet by ORAL route every 12 hours; 14 tablet. and Forms are Medication Reconciliation Form, Thank You Letter, Antibiotic Education, Prescription Opioid Use. Follow up: Private Physician; When: 2 - 3 days; Reason: Recheck today's complaints, Continuance of care, Re-evaluation by your physician. Follow up: Ruddy Aparicio; When: 2 - 3 days; Reason: Recheck today's complaints, Re-evaluation by your physician. Problem is new. Symptoms have improved. yaakov
[2020-05-06] MEDS ORDERED: CEFTRIAXONE/SWI 1gm 1 GM/10 ML SYR ONE (13:27)
== END 2020-05-06 13:47 | disposition home or self-care (01) ==
LOC: ER 11:10
DX: N39.0 Urinary tract infection, site not specified (principal); F17.210 Nicotine dependence, cigarettes, uncomplicated
CPT/HCPCS: 93005; 87088; 85025; 87086; 80048; 36415; 83735; 81025; 82565; 80076; 80307 ×8; 81003; 84484; 83690; 71275; 71045; 96374; 99285; Q9967; J0696

== ENCOUNTER 2020-12-17 12:29 | Emergency (ER) | payer BC ==
[2020-12-17 12:47] LABS: Urine Blood Negative (Negative); Urine Glucose Negative (Negative); Urine Protein Negative (Negative); Urine Specific Gravity 1.015 (1.005-1.030)
[2020-12-17 13:14] LABS: Absolute Lymphocytes (CBC) 2.3 K/uL (0.7-4.9); Basophils % 0.9 % (0-1.3); Hematocrit 41.4 % (36.0-45.0); Lymphocytes % 23.2 % (15.3-44.8); MPV 8.7 fL (7.6-11.3)
[2020-12-17] MEDS ORDERED: ONDANSETRON 4 MG/2 ML VIAL ONE (13:25)
[2020-12-17] MEDS ORDERED: NA CHLORIDE 0.9% 1,000 ML ONE (13:25)
[2020-12-17] MEDS ORDERED: MORPHINE 4 MG/ML SYR ONE (13:28)
[2020-12-17 13:30] LABS: ALT/SGPT 27 U/L (12-78); AST/SGOT 15 U/L (15-37); Albumin 4.5 g/dL (3.4-5.0); Alkaline Phosphatase 80 U/L (45-117); BUN Blood Urea Nitrogen 6 mg/dL (7-18); Bicarbonate 18 mmol/L (21-32); Bilirubin Direct < 0.1 mg/dL (0-0.2); Bilirubin Total 0.4 mg/dL (0.2-1.0); Glucose Level 90 mg/dL (74-106); Lipase 127 U/L (73-393); Protein, Total 8.3 g/dL (6.4-8.2); Sodium Level 141 mmol/L (136-145)
[2020-12-17] MEDS ORDERED: POTASSIUM CL SA 10 MEQ TAB PO ONE (14:13)
--- NOTE | 2020-12-17 14:54 | RAD REPORT ---
EXAM DESCRIPTION: CT - Chest Abdomen Pelvis W Cont - 12/17/2020 2:29 pm CLINICAL HISTORY: Chest and abdominal pain COMPARISON: 2019 TECHNIQUE: Computed axial tomography of the chest, abdomen and pelvis was obtained. Oral and IV cont rast were not requested. All CT scans are performed using dose optimization technique as appropriate and may include automated exposure control or mA/KV adjustment according to patient size. FINDINGS: The evaluation of mediastinum, jocelynn, vessels,bowel and solid organs is limited secondary to the lack of IV contrast administration No mediastinal or hilar lymphadenopathy is seen. A pleural effusion is not present. A pericardial effusion is not seen. Lungs are clear Mild fatty liver. Spleen, pancreas, adrenals and kidneys appear grossly normal There is no evidence of diverticulitis. Normal appendix paragraphs hysterectomy. No adnexal mass IMPRESSION: No acute abnormality is displayed
--- NOTE | 2020-12-17 15:01 | RAD REPORT ---
EXAM DESCRIPTION: Lexie Single View12/17/2020 2:33 pm CLINICAL HISTORY: Shortness of breath COMPARISON: 2019 FINDINGS: The lungs appear clear of acute infiltrate. The heart is normal size IMPRESSION: No acute abnormalities displayed
--- NOTE | 2020-12-17 16:04 | ER ---
Nurse's Notes [facility] Name: Dottie Blanca Age: 40 yrs Sex: Female : 1980 Arrival Date: 12/17/2020 Time: 12:30 Bed 5 Private MD: Diagnosis: Other abdominal pain;Dyspnea, unspecified;Hypokalemia Presentation: 12/17 12:32 Chief complaint: EMS states: pt has had anxiety X 2 days also having LUQ pain, pt iw hyperventilating, cramping in hands now. Coronavirus screen: At this time, the client does not indicate any symptoms associated with coronavirus-19. Ebola Screen: Patient negative for fever greater than or equal to 101.5 degrees Fahrenheit, and additional compatible Ebola Virus Disease symptoms Patient denies exposure to infectious person. Patient denies travel to an Ebola-affected area in the 21 days before illness onset. No symptoms or risks identified at this time. 12:32 Method Of Arrival: EMS: [facility] iw 12:32 Acuity: RENETTA 3 iw 14:09 Initial Sepsis Screen: Does the patient meet any 2 criteria? No. Patient's initial tr6 sepsis screen is negative. Does the patient have a suspected source of infection? No. Patient's initial sepsis screen is negative. Risk Assessment: Do you want to hurt yourself or someone else? Patient reports no desire to harm self or others. 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 - Social history:: Smoking status: unknown. Screenin:49 Abuse screen: Denies threats or abuse. Denies injuries from another. Nutritional tr6 screening: No deficits noted. Tuberculosis screening: No symptoms or risk factors identified. Fall Risk None identified. Assessment: 13:46 General: Appears uncomfortable, well groomed, Behavior is cooperative, anxious. Pain: tr6 Complains of pain in LUQ pain radiating to left lower/mid back. Neuro: No deficits noted. Cardiovascular: No deficits noted. Respiratory: Airway is patent Trachea midline Respiratory effort is labored, Respiratory pattern is regular, Breath sounds are clear bilaterally. GI: Abdomen is distended, Bowel sounds present X 4 quads. Abdomen is tender to palpation in LUQ Guarding noted in LUQ Reports. : No deficits noted. Urine is clear. EENT: No deficits noted. Derm: No deficits noted. Musculoskeletal: No deficits noted. 15:04 Reassessment: pt resting comfortably in bed. tr6 Vital Signs: 12:45 BP 129 / 67; Pulse 100; Resp 24 S; Pulse Ox 100% on R/A; iw 14:00 BP 115 / 74; Pulse 78; Resp 24; Pulse Ox 100% ; sv 15:00 BP 131 / 79; Pulse 78; Resp 18; Pulse Ox 100% ; tr6 15:21 Temp 98.5; tr6 ED Course: 12:30 Patient arrived in ED. iw 12:34 Triage completed. iw 12:35 Arm band placed on. iw 12:39 Sandeep Reaves PA is PHCP. jmm 12:39 Ld Hagen MD is Attending Physician. m 12:47 Dottie Ace RN is Primary Nurse. tr6 12:59 Inserted saline lock: 20 gauge in right antecubital area, using aseptic technique. tr6 Blood collected. 13:49 Resting quietly. Awaiting lab results. tr6 13:49 Patient has correct armband on for positive identification. Bed in low position. Call tr6 light in reach. Side rails up X 1. court recording monitor on. Pulse ox on. NIBP on. Door closed. Noise minimized. Visitors limited. Lights dimmed. Moved to private room. Warm blanket given. 13:49 No provider procedures requiring assistance completed. tr6 14:29 Chest Abdomen Pelvis W Cont In Process Unspecified. EDMS 14:33 Chest Single View XRAY In Process Unspecified. EDMS 15:26 Appears to be sleeping. tr6 16:16 IV discontinued, intact, bleeding controlled, No redness/swelling at site. Pressure tr6 dressing applied. Administered Medications: 12:59 Drug: NS 0.9% 1000 ml Route: IV; Rate: 1 bolus; Site: right antecubital; tr6 13:08 Drug: morphine 4 mg Route: IVP; Site: right antecubital; tr6 13:08 Drug: Zofran (Ondansetron) 4 mg Route: IVP; Site: right antecubital; tr6 14:02 Drug: Potassium Chloride 40 mEq Route: PO; tr6 Outcome: 16:03 Discharge ordered by . mikala 16:15 Discharged to home ambulatory. tr6 16:15 Condition: unchanged 16:15 Discharge instructions given to patient, family, significant other, Instructed on discharge instructions, follow up and referral plans. no drinking with medication, medication usage, safety practices, Demonstrated understanding of instructions, follow-up care, medications, Prescriptions given X 4. 16:20 Patient left the ED. tr6 Signatures: Dispatcher [employer] EDElina Forde RN RN Sandeep Terrazas PA PA jmm Williams, Irene, RN RN iw Ramnanan, Tiffany, RN RN tr6 Corrections: (The following items were deleted from the chart) 15:06 14:02 BP 115 / 74; Pulse 73bpm; Resp 20bpm; Pulse Ox 100% RA; Temp 98.5F; tr6 tr6
--- NOTE | 2020-12-17 16:04 | EDPHYS ---
Physician Documentation [facility] Name: Dottie Blanca Age: 40 yrs Sex: Female : 1980 Arrival Date: 12/17/2020 Time: 12:30 Bed 5 Private MD: ED Physician Ld Hagen HPI: 12/17 12:47 This 40 yrs old Female presents to ER via EMS with complaints of Anxiety, jmm Abdominal Pain. 15:55 Onset: The symptoms/episode began/occurred gradually, 2 week(s) ago. Associated signs jmm and symptoms: Pertinent positives: abdominal pain, shortness of breath. This is a 40 year old female with a history of HLP that presents to the ED with complaints of left flank pain, abdominal pain, cough, shortness of breath worsening over the past 2 weeks. Denies fever, vomiting, diarrhea. Patient does have a history of a repaired abdominal hernia. . 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 - Social history:: Smoking status: unknown. ROS: 15:55 Constitutional: Negative for fever, chills, and weight loss, Cardiovascular: Negative jmm for chest pain, palpitations, and edema. 15:55 Respiratory: Positive for cough, shortness of breath. 15:55 Abdomen/GI: Positive for abdominal pain. 15:55 All other systems are negative. Exam: 15:55 Constitutional: This is a well developed, well nourished patient who is awake, alert, jmm and in no acute distress. Head/Face: atraumatic. Eyes: EOMI, no conjunctival erythema appreciated ENT: Moist Mucus Membranes Neck: Trachea midline, Supple Chest/axilla: Normal chest wall appearance and motion. Cardiovascular: Regular rate and rhythm. No edema appreciated Respiratory: Normal respirations, no respiratory distress appreciated 15:55 Skin: General appearance color normal MS/ Extremity: Moves all extremities, no obvious deformities appreciated, no edema noted to the lower extremities Neuro: Awake and alert, normal gait Psych: Behavior is normal, Mood is normal, Patient is cooperative and pleasant 15:55 Abdomen/GI: Inspection: abdomen appears normal, Bowel sounds: normal, Palpation: soft, moderate abdominal tenderness, in the left upper quadrant and abdomen diffusely. Vital Signs: 12:45 BP 129 / 67; Pulse 100; Resp 24 S; Pulse Ox 100% on R/A; iw 14:00 BP 115 / 74; Pulse 78; Resp 24; Pulse Ox 100% ; sv 15:00 BP 131 / 79; Pulse 78; Resp 18; Pulse Ox 100% ; tr6 15:21 Temp 98.5; tr6 MDM: 12:50 Patient medically screened. [facility] 16:01 Data reviewed: vital signs, nurses notes. Counseling: I had a detailed discussion with mikala the patient and/or guardian regarding: the historical points, exam findings, and any diagnostic results supporting the discharge/admit diagnosis, lab results, radiology results, the need for outpatient follow up, to return to the emergency department if symptoms worsen or persist or if there are any questions or concerns that arise at home. ED course: Patient is alert and non toxic in appearance in the ED. Advised to follow up with GI/ general surgery for further evaluation. Patient is otherwise given strict return precautions. Patient understood and agrees with the plan of care. . 12/17 12:47 Order name: Urine Dipstick-Ancillary; Complete Time: 13:51 [facility] 12/17 12:50 Order name: Basic Metabolic Panel; Complete Time: 13:51 [facility] 12/17 12:50 Order name: CBC with Diff; Complete Time: 13:51 [facility] 12/17 12:50 Order name: Hepatic Function; Complete Time: 13:51 [facility] 12/17 12:50 Order name: Lipase; Complete Time: 13:51 [facility] 12/17 13:13 Order name: Troponin (emerg Dept Use Only); Complete Time: 14:06 [facility] 12/17 13:13 Order name: D-Dimer; Complete Time: 14:06 [facility] 12/17 14:07 Order name: Chest Single View XRAY; Complete Time: 15:04 [facility] 12/17 14:14 Order name: Chest Abdomen Pelvis W Cont; Complete Time: 15:04 [facility] 12/17 12:50 Order name: IV Saline Lock; Complete Time: 12:57 [facility] 12/17 12:50 Order name: Labs collected and sent; Complete Time: 12:57 [facility] 12/17 13:13 Order name: EKG - Nurse/Tech; Complete Time: 13:22 [facility] 12/17 13:29 Order name: Urine Test (obtain specimen); Complete Time: 13:33 [facility] 12/17 13:30 Order name: Urine Dipstick-Ancillary (obtain specimen); Complete Time: 13:33 [facility] Administered Medications: 12:59 Drug: NS 0.9% 1000 ml Route: IV; Rate: 1 bolus; Site: right antecubital; tr6 13:08 Drug: morphine 4 mg Route: IVP; Site: right antecubital; tr6 13:08 Drug: Zofran (Ondansetron) 4 mg Route: IVP; Site: right antecubital; tr6 14:02 Drug: Potassium Chloride 40 mEq Route: PO; tr6 Disposition Summary: 12/17/20 16:03 Discharge Ordered Location: Home [facility] Condition: Stable [facility] Diagnosis - Other abdominal pain jm - Dyspnea, unspecified jm - Hypokalemia [facility] Followup: [facility] - With: Private Physician - When: 2 - 3 days - Reason: Recheck today's complaints, Continuance of care, Re-evaluation by your physician Discharge Instructions: - Discharge Summary Sheet [facility] - Abdominal Pain, Adult jm - Potassium Content of Foods jm - Shortness of Breath, Adult [facility] Forms: - Medication Reconciliation Form [facility] - Thank You Letter [facility] - Antibiotic Education [facility] - Prescription Opioid Use [facility] Prescriptions: - Medrol (Aramis) 4 mg Oral Tablets, Dose Pack - take 1 tablet by ORAL route as directed - follow package instructions; 1 [facility] packet; Refills: 0, Product Selection Permitted - orphenadrine citrate 100 mg Oral Tablet Sustained Release - take 1 tablet by ORAL route 2 times per day As needed; 20 tablet; Refills: 0, [facility] Product Selection Permitted - Pepcid 20 mg Oral Tablet - take 1 tablet by ORAL route once daily; 20 tablet; Refills: 0, Product [facility] Selection Permitted - dicyclomine 20 mg Oral Tablet - take 1 tablet by ORAL route 3 times per day; 20 tablet; Refills: 0, Product [facility] Selection Permitted Addendum: 12/20/2020 13:47 Co-signature as Attending Physician, Ld Hagen MD I agree with the assessment and k dr plan of care. Signatures: Dispatcher [employer] EDMS Ld Hagen MD MD [facility] Sandeep Reaves PA PA jmm Williams, Irene, RN RN iw Dottie Ace RN RN tr6 Corrections: (The following items were deleted from the chart) 12/17 14:14 14:11 Abdomen Pelvis W Con+CT.RAD.BRZ ordered. EDMS EDMS 14:22 14:12 Thorax W/ Con+CT.RAD.BRZ ordered. EDMS EDMS
[2020-12-17 16:31] VITALS: O2SAT 100
[2020-12-17 16:34] VITALS: BP 131/79
[2020-12-17 16:35] VITALS: TEMP 98.5
--- NOTE | 2020-12-21 16:17 | EKG ---
Test Date: 2020-12-17 Test Time: 13:17:15 Director Of Community [facility]: KIMBERLY MEASUREMENT RESULTS: Intervals: Rate: 94 ME: 124 QRSD: 84 QT: 374 QTc: 467 [place]: P: 60 ME: 124 QRS: 61 T: 40 INTERPRETIVE STATEMENTS: Normal sinus rhythm with sinus arrhythmia Possible Left atrial enlargement Cannot rule out Anterior infarct, age undetermined Abnormal ECG Compared to ECG 05/06/2020 11:20:43 Myocardial infarct finding now present Electronically Signed On 12-21-20 16:09:19 CDT by Ruddy Aparicio
== END 2020-12-17 16:20 | disposition home or self-care (01) ==
LOC: ER 12:29
DX: R06.00 Dyspnea, unspecified (principal); E87.6 Hypokalemia; E78.00 Pure hypercholesterolemia, unspecified
CPT/HCPCS: 93005; 85025; 80048; 36415; 85379; 80076; 81003; 84484; 83690; 71260; 74177; 71045; 96375; 96374; 99284; Q9967; J7030; J2405

== ENCOUNTER 2022-07-18 11:16 | Emergency (ER) | payer BC ==
--- OUTSIDE RECORDS SUMMARY | 2022-07-18 11:19 | XMS REPORT | Continuity of Care Document ---
:1980 Author Organization [facility] t Address [address] [place] [address] Care Team Providers Name Role Phone ANTONIA KHAN Primary Care Physician Unavailable Michelle Sorto Attending Clinician Payers Payer Name Policy Type Policy Number Effective Date Expiration Date S ource Problems Condition Condition Condition Status Onset Resolution Last Treating Co mments Source Name Details Category Date Date Treatment Clinician Date Menorrhagi Menorrhagi Disease Active U nivers a a 8-06 ity of 00:00: [place] 00 MD [facility] Dysmenorrh Dysmenorrh Disease Active U shy ea ea 8-06 ity of 00:00: [place] 00 MD [facility] Well woman Well woman Disease Active 2015-06 U shy exam exam 0-20 ity of 00:00: [place] 00 Medical Branch H/O H/O Disease Active 2015-06 Univers abnormal abnormal 0-20 ity of cervical cervical 00:00: [place] Papanicola Papanicola 00 Me dical ou smear ou smear Branch Papanicola Papanicola Disease Active Overview : Univers ou smear ou smear - Formattin ity of of cervix of cervix 00:00: g of this [place] with low with low 00 note Medica l grade grade might be Branch squamous squamous different intraepith intraepith from the elial elial original. lesion lesion 03/17/2015 (LGSIL) (LGSIL) colpo History of History of Disease Active U nivers bilateral bilateral 9-10 ity of tubal tubal 00:00: [place] ligation ligation 00 Medica l Branch Tobacco Tobacco Disease Active Univers use use 9-10 ity of disorder disorder 00:00: [place] 00 [facility] Allergies, Adverse Reactions, Alerts Allergy Allergy Status Severity Reaction(s) Onset Inactive Treating Comm ents Source Name Type Date Date Clinician NO KNOWN Drug Active Univers ALLERGIE Class ity of S [facility] Family History Family Member Diagnosis Comments Start Date Stop Date Source Maternal grandmother -Leukemia Univ ersity of [facility] Maternal grandmother Diabetes [facility] Natural sister -Gynecology Universit y of (Ovary, [facility] Cervix, Vagina) Natural sister Ovarian cancer Univer [facility]ity [facility] [place] MD [facility] Social History Social Habit Start Date Stop Date Quantity Comments Source Exposure to Not sure [facility] SARS-CoV-2 (event) [facility] History of tobacco Smokes tobacco Un iversity of use daily [facility] Alcohol intake 2018-02-25 2018-02-25 Current drinker Unive rsity of 00:00:00 00:00:00 of alcohol [facility] Cigarette 2018-01-21 2018-01-21 University of pack-years 00:00:00 00:00:00 [facility] wil[facility] Cigarettes smoked 2018-01-21 2018-01-21 [facility] ity of current (pack per 00:00:00 00:00:00 [facility] [place] [facility] Deisy ) - Reported Cancer Ce nter Tobacco use and 2016-04-06 2016-04-06 Never used Universit y of exposure 00:00:00 00:00:00 [facility] Tobacco Comment 2015-02-25 2015-02-25 smokes 1-3 x per Uni versity of 00:00:00 00:00:00 day. [facility] Sex Assigned At [birth year] Universit y of 00:00:00 00:00:00 [facility] Smoking Status Start Date Stop Date Source Current every day smoker 2016-04-06 00:00:00 Uni versity of [facility] Medications Ordered Filled Start Stop Current Ordering Indication Dosage Frequency Signature Comments Components Source Medication Medication Date Date Medication? Clinician (SIG) Name Name amoxicillin 2020-0 2020- No 1{tbl} 1 tablet, Univers -clavulanat 12-24 Oral, ity of e 00:30: 23:54 ONCE, 1 [place] (AUGMENTIN) 00 :00 dose, [facility] ical 875-125 mg 12/23/20 at [facility] per tablet 1929, 1 tablet [place]
Re ason for Anti-Infec tive: Documented Infection< br>Documen malcolm Infection Site: HEENT
D uration of Therapy: Other (see Comments) guaiFENesin 2020- No 200mg 200 mg, U nivers 100 mg/5 mL 12-23 Oral, ity of solution 23:30: 23:24 ONCE, 1 [place] 200 mg 00 :00 dose, Psychiatric 12/23/20 at [address], [place] ibuprofen 2020- No 800mg 800 mg, Uni vers (IBU) 12-23 Oral, ity of tablet 800 23:30: 23:24 ONCE, 1 [place] as mg 00 :00 dose, Psychiatric 12/23/20 at [address], [facility] dexamethaso 2020- No 10mg 10 mg, Uni vers ne 12-23 Oral, ity of (DECADRON 23:30: 23:24 ONCE, 1 [place] PHOSPHATE) 00 :00 dose, [facility] 12/23/20 at [facility] h 10 mg 1829, STAT albuterol 2020- No 2{puff} 2 Puff, U nivers (VENTOLIN) 12-23 Inhalation it y of inhaler 2 23:30: 23:19 [place] Puff [place] :00 dose, Psychiatric 12/23/20 at [place] [address], [place] montelukast Yes [id number] 10mg Take 1 Univers (SINGULAIR) 12-23 tablet by ity of 10 mg 00:00: mouth [place] tablet 00 daily. Medical Branch albuterol Yes [id number] 2{puff} Inhale 2 Univers 90 -08 Puffs ity of mcg/actuati 00:00: every 4 [place] as on inhaler 00 (four) Medical hours as Branch needed for Wheezing or Shortness of Breath. fluticasone Yes [id number] 2{spray Use 2 Univers propionate 7-08 } Sprays in ity of 50 00:00: each [place] mcg/actuati 00 nostril Medic al on nasal daily. Branch spray amoxicillin 2020- No [id number] 1{tbl} Take 1 Univers -clavulanat 12-23 07-19 tablet by it y of e 875-125 00:00: 04:59 mouth 2 [place] mg per 00 :00 (two) Medical tablet times Branch daily for 10 days. dexAMETHaso 2020- No [id number] 6mg Take 1 Univers ne 12-23 07-14 tablet by ity of (DECADRON) 00:00: 04:59 mouth [place] 6 mg tablet 00 :00 daily with Wa dical breakfast Branch for 5 days. naproxen 2017-06 Yes 250mg Take 250 Univ ers (NAPROSYN) 0-08 mg by ity of 250 mg 11:54: mouth [place] tablet 31 daily as MD needed. [facility] amitriptyli 2017-06 Yes daily. [facility] ers ne (ELAVIL) 0-08 ity of 25 mg 11:54: [place] tablet 21 [facility] multivitami 2017-06 Yes 1{tbl} Take 1 Un juan n 0-08 tablet by ity of (multivitam 11:54: mouth [place] in) tablet 21 [facility]. [facility] fish 2017-06 Yes 1g Take 1 g [facility] oil-omega-3 0-08 by mouth ity of fatty acids 11:54: [place]. [place] 300-1,000 21 MD mg capsule [facility] Immunizations Ordered Filled Immunization Date Status Comments [facility] e Immunization Name Name TDAP 2015-02-25 Completed [facility] 00:00:00 [facility] Td 2002-06-18 Completed [facility] 00:00:00 [facility] Vital Signs Vital Name Observation Time Observation Value Comments Source Heart rate 2020-12-23 23:20:00 74 /min [facility] Respiratory rate 2020-12-23 23:20:00 18 /min [facility] ersity [facility] Oxygen saturation in 2020-12-23 23:20:00 99 /min [facility] Arterial blood by [facility] Pulse oximetry Branch Systolic blood 2020-12-23 22:04:00 132 mm[Hg] Univer sity of pressure [facility] Diastolic blood 2020-12-23 22:04:00 94 mm[Hg] Unive rsity of pressure [facility] Body temperature 2020-12-23 22:04:00 [facility].17 [facility] Body weight 2020-12-23 22:04:00 61.236 kg [facility] BMI 2020-12-23 22:04:00 23.73 kg/m2 [facility] Procedures Procedure Date / Time Performed Performing Clinician Sourc e NOTICE OF PRIVACY 2020-12-23 22:50:56 Doctor Unassigned, No Univ [facility] PRACTICES Name Medical Branch CONSENT/REFUSAL FOR 2020-12-23 22:48:51 [facility], [facility] AND Name Medical Branch TREATMENT XR CHEST 1 VW 2020-12-23 22:32:06 Michelle Dawn Thurston o [facility] RAPID STREP SCREEN 2020-12-23 22:13:00 Michelle Dawn [facility] FOR GROUP A Medical Branch ADC,CLC OR LCC ONLY - 2020-12-23 22:13:00 Michelle Dawn [facility] INFLUENZA A & B [facility] DIRECT ANTIGEN Plan of Care Planned Activity Planned Date Details Comments Source Future Scheduled 2021-12-21 COVID-19 Vaccination Uni [facility] Test 05:48:02 (#1) [code = COVID-19 And dee dee Cancer Vaccination (#1)] Center Encounters Start End Encounter Admission Attending Care Care Encounter Source Date/Time Date/Time Type Type Clinicians Facility Department ID 2021-04-18 Emergency [facility] [id number] Univers 06:58:21 ity [facility] 2020-12-23 2020-12-23 [facility] [id number] Univers 17:51:00 19:01:00 Michelle Macdonald [id number] i ty [facility] [id number] [facility] [id number] [facility] 084 Branch Results Test Description Test Time Test Comments Results Result Comments Source ADC,CLC OR LCC ONLY - INFLUENZA A & B DIRECT ANTIGEN 2020-12 23:15:19 Test Item Value Reference Range Interpretation Comme nts Influenza A (test code = 60667-3) Negative Negative Influenza B (test code = 81911-5) Negative Negative Lab Interpretation (test code = 00665-5) [facility] [id number] 23:05:13 Test Item Value Reference Range Interpretation Comments Streptococcus pyogenes (group A) Negative Negative antigen (test code = 56238-6) Lab Interpretation (test code = Normal 33549-1) [facility] [id number] 22:40:00 No acute cardiopulmonary process.EXAM: XR CHEST 1 VW COMPARISON: None available. HISTORY: none FINDINGS: Support devices: None. Lungs/pleura: ?The lungs are clear. No pleural effusion or pneumothorax isidentified. Heart/Mediastinum: The cardiac silhouette is normal in size. Trachea isnear midline. [facility], Radiant Results Inft User - 12/23/2020 5:41 PM CDTFormatting of this note might be different fromthe original.EXAM: XR CHEST 1 VWCOMPARISON: None available.HISTORY: none FINDINGS:Support devices: None.Lungs/pleura: The lungs are clear. No pleural effusion or pneumothorax isidentified.Heart/Mediastinum: The cardiac silhouette is normal in size. Trachea isnear midline.IMPRESSIONNo acute cardiopulmonary process.[facility]
--- OUTSIDE RECORDS SUMMARY | 2022-07-18 11:19 | XMS REPORT | Clinical Summary ---
:1980 Author Organization [facility] MD [facility] Address [facility] [place] [address] Care Team Providers Name Role Phone Sekou Borjas MD Primary Care Provider Wilberto Wiseman MD Unavailable Allergies No known active allergies Medications Medication Sig Dispensed Refills Start Date End Date Status amitriptyline (ELAVIL) daily. 0 Active 25 mg tablet multivitamin Take 1 tablet by 0 Active (multivitamin) tablet mouth daily. fish oil-omega-3 fatty Take 1 g by 0 Active acids 300-1,000 mg mouth daily. capsule naproxen (NAPROSYN) 250 Take 250 mg by 0 Active mg tablet mouth daily as needed. Active Problems Problem Noted Date Menorrhagia 01/21/2018 Dysmenorrhea 01/21/2018 Surgical History Surgery Date Site/Laterality Comments TUBAL LIGATION 06/18/2002 - 06/17/2003 ROBOTIC LAPAROSCOPIC 02/05/2018 Robotic Ass isted HYSTERECTOMY hysterectomy, bi lateral salpingectomy Medical History Medical History Date Comments Hyperlipidemia 12/20/2017 Polyp 2016 Uterus Renal stone 2002 Sexually transmitted disease 2015 Hpv Uterine leiomyoma 01/12/18 Polycystic ovarian syndrome 1994 has had cyst s since younger Endometriosis 01/12/18 Depressive disorder Family History Medical History Relation Name Comments -Leukemia Maternal Grandmother Karli Diabetes Maternal Grandmother Karli -Gynecology (Ovary, Endometrial, Cervix, Sister Amanda Vagina) Ovarian cancer Sister Amanda Relation Name Status Comments Maternal Grandmother Karli Sister Amanda Social History Tobacco Use Types Packs/Day Years Used Date Smoking Tobacco: Every Day Cigarettes 0.3 8 Smokeless Tobacco: Never Tobacco Cessation: Ready to Quit: No Alcohol Use Standard Drinks/Week Comments Yes 0 (1 standard drink = 0.6 oz pure alcoho l) Sex Assigned at Date Recorded Not on file Obstetrics History Para Term AB IAB SAB Ectopic Multiple Living Live Births 3 3 Date Outcome GA Total Labor/2nd/3rd Weight Sex Delivery Anes PTL Stacia A 1 A5 Name Clin Labor Para Para Para Comments Normal vaginal deliveries. Last Filed Vital Signs Not on file Plan of Treatment Health Maintenance Due Date Last Done Comments COVID-19 Vaccination (#1) 01/03/1980 Results Not on fileafter 07/18/2021 Insurance Payer Benefit Plan / Subscriber ID Effective Dates Phone Addre ss Type Group [facility] [id number] 2018-Presen [address] PPO [place] [address] [employer] [place]UE [place] PPO POS [id number] 2016-Prese [address] [place] [address] Care Teams [employer] Leak Tester Relationship Specialty Start Date End Date Sekou Borjas MD PCP - General Gynecological Oncology 01/15/18 [facility] [place] [address] Wilberto Wiseman PCP - External 01/31/18 MD Geovany Referring [address] [place], [place] [address]
[2022-07-18 12:05] LABS: Urine Blood 1+ (Negative); Urine Glucose Negative (Negative); Urine Protein 1+ (Negative); Urine Specific Gravity 1.025 (1.005-1.030); Urine pH 6.5 (5.0-7.0)
[2022-07-18 12:08] LABS: Absolute Lymphocytes (CBC) 2.7 K/uL (0.7-4.9); Hematocrit 40.2 % (36.0-45.0); Lymphocytes % 24.9 % (15.3-44.8); MCV 91.8 fL (80-100); MPV 7.8 fL (7.6-11.3); RBC Red Blood Cell Count 4.38 M/uL (3.86-4.86)
[2022-07-18 12:12] LABS: Urine Bacteria None Seen /HPF (<20); Urine Mucus 2+ /HPF (None Seen)
[2022-07-18 12:20] LABS: Albumin 4.1 g/dL (3.4-5.0); Bilirubin Total 0.6 mg/dL (0.2-1.0); Potassium 3.5 mmol/L (3.5-5.1); Protein, Total 7.7 g/dL (6.4-8.2)
[2022-07-18] MEDS ORDERED: NA CHLORIDE 0.9% 1,000 ML ONE (12:23)
[2022-07-18] MEDS ORDERED: ONDANSETRON 4 MG/2 ML VIAL ONE (12:23)
[2022-07-18] MEDS ORDERED: MORPHINE 4 MG/ML SYR ONE (12:23)
--- NOTE | 2022-07-18 12:44 | RAD REPORT ---
EXAM DESCRIPTION: CTAbdomen Pelvis W Contrast - 07/18/2022 12:35 pm CLINICAL HISTORY: Abdominal pain. L flank pain w/ N/V/D COMPARISON: Abdomen Pelvis W Contrast dated 12/26/2019; Abdomen Pelvis W Contrast dated 01/12/2018 ; CT ABD PELVIS W CONTRAST dated 07/23/2014; Chest Abdomen Pelvis W Cont dated 12/17/2020 TECHNIQUE: Biphasic CT imaging of the abdomen and pelvis was performed with 100 ml non-ionic IV cont rast. All CT scans are performed using dose optimization technique as appropriate and may include automated exposure control or mA/KV adjustment according to patient size. FINDINGS: The lung bases are clear. The liver, spleen, pancreas, adrenal glands and kidneys are within normal limits. No bowel obstruction, free air, free fluid or abscess. The appendix is normal. No evidence of signi ficant lymphadenopathy. No suspicious bony findings. IMPRESSION: No acute intra-abdominal or pelvic finding.
--- NOTE | 2022-07-18 13:01 | ER ---
Nurse's Notes [facility] Name: Dottie Blanca Age: 42 yrs Sex: Female : 1980 Arrival Date: 07/18/2022 Time: 11:35 Bed 15 Private MD: Diagnosis: Hematuria, unspecified;Nausea with vomiting, unspecified Presentation: 07/18 11:43 Chief complaint: Patient states: Left flank pain with blood in urine x 3 months; was vg1 recently dx with Hpylori; denies s/s of urine frequency/urgency or buring; also stated N/V. Coronavirus screen: Vaccine status: Patient reports being unvaccinated. Client denies travel out of the [place] in the last 14 days. Ebola Screen: Patient negative for fever greater than or equal to 101.5 degrees Fahrenheit, and additional compatible Ebola Virus Disease symptoms Patient denies exposure to infectious person. Initial Sepsis Screen: Does the patient meet any 2 criteria? No. Patient's initial sepsis screen is negative. Does the patient have a suspected source of infection? No. Patient's initial sepsis screen is negative. Risk Assessment: Do you want to hurt yourself or someone else? Patient reports no desire to harm self or others. Onset of symptoms was March 2022. 11:43 Method Of Arrival: Ambulatory vg1 11:43 Acuity: RENETTA 3 vg1 Triage Assessment: 11:45 General: Appears in no apparent distress. uncomfortable, Behavior is calm, cooperative. vg1 Pain: Complains of pain in left flank Pain currently is 7 out of 10 on a pain scale. Pain began x 3 months. : Reports 'blood in urine' Denies burning with urination, urinary frequency, urgency. 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 - Social history:: Smoking status: Patient reports the use of cigarette tobacco products, denies chronic smoking, but will smoke occasionally, Patient uses street drugs, marijuana. Screenin:45 [facility] ED Fall Risk Assessment (Adult) History of falling in the last 3 months, bp including since admission No falls in past 3 months (0 pts). Abuse screen: Denies threats or abuse. Denies injuries from another. Nutritional screening: No deficits noted. Tuberculosis screening: No symptoms or risk factors identified. Assessment: 11:45 General: SEE TRIAGE NOTE. bp 13:30 Reassessment: No changes from previously documented assessment. Patient and/or family bp updated on plan of care and expected duration. Pain level reassessed. 14:42 Reassessment: PT DC HOME. bp Vital Signs: 11:43 BP 142 / 88; Pulse 80; Resp 16; Temp 98.2(TE); Pulse Ox 100% on R/A; Weight 58.97 kg; vg1 Height 5 ft. 3 in. (160.02 cm); Pain 7/10; 12:30 BP 125 / 85; Pulse 71; Resp 16; Pulse Ox 100% ; bp 13:30 BP 121 / 81; Pulse 68; Resp 16; Pulse Ox 100% ; bp 14:30 BP 137 / 79; Pulse 65; Resp 16; Pulse Ox 100% ; bp 11:43 Body Mass Index 23.03 (58.97 kg, 160.02 cm) 1 ED Course: 11:35 Patient arrived in ED. as 11:35 May[facility] Moore FNP [facility] 11:35 Ba Nnia MD is Attending Physician. [facility] 11:45 Triage completed. vg1 11:45 Arm band placed on. vg1 11:45 Patient has correct armband on for positive identification. Bed in low position. Call bp light in reach. Side rails up X2. 11:54 Juan Reyna, ISAEL is Primary Nurse. bp 11:57 Inserted saline lock: 20 gauge in right antecubital area, using aseptic technique. bp Blood collected. 11:59 CBC with Diff Sent. bc6 11:59 CMP Sent. bc6 11:59 Lipase Sent. bc6 11:59 Urine Microscopic Only Sent. bc6 12:28 CT Abd/Pelvis - IV Contrast Only Sent. bp 12:37 CT Abd/Pelvis - IV Contrast Only In Process Unspecified. EDMS 13:00 Dani Wyman MD is Referral Physician. [facility] 14:45 No provider procedures requiring assistance completed. IV discontinued, intact, bp bleeding controlled, No redness/swelling at site. Pressure dressing applied. Administered Medications: 12:10 Drug: NS 0.9% 1000 ml Route: IV; Rate: 1 bolus; Site: right antecubital; bp 14:41 Follow up: IV Status: Completed infusion; IV Intake: 1000ml bp 12:10 Drug: Zofran (Ondansetron) 4 mg Route: IVP; Site: right antecubital; bp 14:41 Follow up: Response: No adverse reaction bp 12:10 Drug: morphine 4 mg Route: IVP; Infused Over: 4 mins; Site: right antecubital; bp 14:41 Follow up: Response: Pain is decreased bp Intake: 14:41 IV: 1000ml; Total: 1000ml. bp Outcome: 13:01 Discharge ordered by . jh 14:45 Discharged to home ambulatory. bp 14:45 Condition: stable 14:45 Discharge instructions given to patient, Instructed on discharge instructions, follow up and referral plans. medication usage, Demonstrated understanding of instructions, follow-up care, medications, Prescriptions given X 2. 14:46 Patient left the ED. bp Signatures: Dispatcher [employer] EDBárbara Hoyos Brian, RN RN Karmen Corey RN RN vg1 Maylin Moore, PROJECT GEOPHYSICIST PROJECT GEOPHYSICIST [facility] Lesly Ortega6
--- NOTE | 2022-07-18 13:01 | EDPHYS ---
Physician Documentation [facility] Name: Dottie Blanca Age: 42 yrs Sex: Female : 1980 Arrival Date: 07/18/2022 Time: 11:35 Bed 15 Private MD: ED Physician Ba Nina HPI: 07/18 11:45 This 42 yrs old Female presents to ER via Ambulatory with complaints of Flank Pain. jh7 11:45 The patient complains of pain in the left low back. The pain does not radiate. Onset: jh7 The symptoms/episode began/occurred 3 month(s) ago, and became worse 1 week(s) ago. Associated signs and symptoms: Pertinent positives: diarrhea, hematuria, nausea, vomiting, Pertinent negatives: fever. 42-year-old female complains of left flank pain and hematuria for the past 3 weeks. Reports that she was also recently treated for H. pylori with triple therapy and recently finished the treatment. Reports nausea, vomiting, and diarrhea for the past few days. Denies fever or any urinary symptoms. Reports that her PCP has been treating her hematuria with multiple antibiotics but that she has never had an infection.. 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 - Social history:: Smoking status: Patient reports the use of cigarette tobacco products, denies chronic smoking, but will smoke occasionally, Patient uses street drugs, marijuana. ROS: 11:45 Constitutional: Negative for fever, chills, and weight loss, Eyes: Negative for injury, jh7 pain, redness, and discharge, Neck: Negative for injury, pain, and swelling, Cardiovascular: Negative for chest pain, palpitations, and edema, Respiratory: Negative for shortness of breath, cough, wheezing, and pleuritic chest pain, Back: Negative for injury and pain, MS/Extremity: Negative for injury and deformity, Skin: Negative for injury, rash, and discoloration, Neuro: Negative for headache, weakness, numbness, tingling, and seizure. 11:45 Abdomen/GI: Positive for nausea, vomiting, and diarrhea, Negative for abdominal pain, rectal pain, rectal bleeding. 11:45 : Positive for flank pain, hematuria, Negative for urinary symptoms. 11:45 All other systems are negative. Exam: 11:45 Constitutional: This is a well developed, well nourished patient who is awake, alert, jh7 and in no acute distress. Head/Face: Normocephalic, atraumatic. Neck: Trachea midline, no thyromegaly or masses palpated, and no cervical lymphadenopathy. Supple, full range of motion without nuchal rigidity, or vertebral point tenderness. No Meningismus. Cardiovascular: Regular rate and rhythm with a normal S1 and S2. No gallops, murmurs, or rubs. Normal PMI, no JVD. No pulse deficits. Respiratory: Lungs have equal breath sounds bilaterally, clear to auscultation and percussion. No rales, rhonchi or wheezes noted. No increased work of breathing, no retractions or nasal flaring. Abdomen/GI: Soft, non-tender, with normal bowel sounds. No distension or tympany. No guarding or rebound. No evidence of tenderness throughout. Skin: Warm, dry with normal turgor. Normal color with no rashes, no lesions, and no evidence of cellulitis. MS/ Extremity: Pulses equal, no cyanosis. Neurovascular intact. Full, normal range of motion. Neuro: Awake and alert, GCS 15, oriented to person, place, time, and situation. Normal gait. 11:45 : CVA tenderness, that is mild. Vital Signs: 11:43 BP 142 / 88; Pulse 80; Resp 16; Temp 98.2(TE); Pulse Ox 100% on R/A; Weight 58.97 kg; vg1 Height 5 ft. 3 in. (160.02 cm); Pain 7/10; 12:30 BP 125 / 85; Pulse 71; Resp 16; Pulse Ox 100% ; bp 13:30 BP 121 / 81; Pulse 68; Resp 16; Pulse Ox 100% ; bp 14:30 BP 137 / 79; Pulse 65; Resp 16; Pulse Ox 100% ; bp 11:43 Body Mass Index 23.03 (58.97 kg, 160.02 cm) vg1 MDM: 11:35 Patient medically screened. [facility] 13:00 Differential diagnosis: nephrolithiasis, pyelonephritis, UTI, diverticulitis, Colitis, jh7 cholecystitis. Data reviewed: vital signs, nurses notes, lab test result(s), radiologic studies, CT scan. I considered the following discharge prescriptions or medication management in the emergency department Medications were administered in the Emergency Department. See MAR. Care significantly affected by the following chronic conditions: H pylori. Counseling: I had a detailed discussion with the patient and/or guardian regarding: the historical points, exam findings, and any diagnostic results supporting the discharge/admit diagnosis, the need for outpatient follow up, a urologist, Will also follow-up with GI post H. pylori treatment. Response to treatment: the patient's symptoms have markedly improved after treatment. ED course: Advised the patient that if she is truly had hematuria and flank pain with no known cause for the past 3 months, she should follow-up with urology. The patient agreed and states that she will make an appointment with Dr. Wyman. Reviewed all labs and imaging.. 07/18 11:43 Order name: CBC with Diff; Complete Time: 12:41 [facility] 07/18 11:43 Order name: CMP; Complete Time: 12:41 [facility] 07/18 11:43 Order name: Lipase; Complete Time: 12:41 [facility] 07/18 11:43 Order name: Urine Microscopic Only; Complete Time: 12:41 [facility] 07/18 12:06 Order name: Urine Dipstick-Ancillary; Complete Time: 12:41 [facility] 07/18 12:33 Order name: Urine --Ancillary (enter results); Complete Time: 13:08 07/18 11:43 Order name: CT Abd/Pelvis - IV Contrast Only; Complete Time: 12:54 [facility] 07/18 11:43 Order name: IV Saline Lock; Complete Time: 11:58 [facility] 07/18 11:43 Order name: Labs collected and sent; Complete Time: 11:58 [facility] 07/18 11:43 Order name: Urine Dipstick-Ancillary (obtain specimen); Complete Time: 12:06 [facility] 07/18 11:43 Order name: Urine Test (obtain specimen); Complete Time: 12:07 [facility] Administered Medications: 12:10 Drug: NS 0.9% 1000 ml Route: IV; Rate: 1 bolus; Site: right antecubital; bp 14:41 Follow up: IV Status: Completed infusion; IV Intake: 1000ml bp 12:10 Drug: Zofran (Ondansetron) 4 mg Route: IVP; Site: right antecubital; bp 14:41 Follow up: Response: No adverse reaction bp 12:10 Drug: morphine 4 mg Route: IVP; Infused Over: 4 mins; Site: right antecubital; bp 14:41 Follow up: Response: Pain is decreased bp Disposition: 18:11 Co-signature as Attending Physician, Ba Nina MD I reviewed the patient's care rn provided by the Advanced Practice Provider and agree with the diagnosis and treatment plan. Disposition Summary: 07/18/22 13:01 Discharge Ordered Location: Home [facility] Problem: chronic [facility] Symptoms: are unchanged [facility] Condition: Stable [facility] Diagnosis - Hematuria, unspecified 7 - Nausea with vomiting, unspecified 7 Followup: [facility] - With: Dani Wyman MD - When: 1 - 2 days - Reason: Further diagnostic work-up Discharge Instructions: - Discharge Summary Sheet [facility] - Hematuria, Adult jh7 - Nausea and Vomiting, Adult 7 Forms: - Medication Reconciliation Form [facility] - Thank You Letter [facility] Prescriptions: - ondansetron 4 mg Oral tablet,disintegrating - place 1 tablet by TRANSLINGUAL route 4 times per day As needed; 20 tablet; [facility] Refills: 0, Product Selection Permitted - Levsin 0.125 mg Oral Tablet - take 1 tablet by ORAL route every 8 hours; 30 tablet; Refills: 0, Product [facility] Selection Permitted Signatures: Dispatcher [employer] Ba Whittaker MD MD rn Peltier, Brian RN Karmen Bates RN RN Maylin Ryan FNP FNP [facility]
[2022-07-18 13:06] LABS: Urine Specific Gravity/Preg 1.025 (1.005-1.030)
[2022-07-18 15:03] VITALS: TEMP 98.2; O2SAT 100
[2022-07-18 15:15] VITALS: BP 137/79
== END 2022-07-18 14:46 | disposition home or self-care (01) ==
LOC: ER 11:16
DX: R31.9 Hematuria, unspecified (principal); R11.2 Nausea with vomiting, unspecified; R19.7 Diarrhea, unspecified; E78.00 Pure hypercholesterolemia, unspecified; F17.210 Nicotine dependence, cigarettes, uncomplicated
CPT/HCPCS: 85025; 36415; 81025; 83690; 80053; 74177; Q9967; J7030; J2405; 81003; 81015

== ENCOUNTER 2022-08-07 08:45 | Emergency (ER) | payer BC ==
--- OUTSIDE RECORDS SUMMARY | 2022-08-07 08:49 | XMS REPORT | Continuity of Care Document ---
:1980 Author Organization [facility] t Address [address] [place] [address] Care Team Providers Name Role Phone Sekou Borjas MD Primary Care Physician Michelle Sorto Attending Clinician Payers Payer Name Policy Type Policy Number Effective Date Expiration Date S ource Problems Condition Condition Condition Status Onset Resolution Last Treating Co mments Source Name Details Category Date Date Treatment Clinician Date Menorrhagi Menorrhagi Disease Active U shy a a 8-06 ity of 00:00: [place] [...] squamous squamous different intraepith intraepith from the alek gaston original. lesion lesion 03/17/2015 (LGSIL) (LGSIL) colpo History of History of Disease Active U nivers bilateral bilateral 9-10 ity of tubal tubal 00:00: [place] ligation ligation 00 Medica l Branch Tobacco Tobacco Disease Active Univers use use 9-10 ity of disorder disorder 00:00: [address] Allergies, Adverse Reactions, Alerts Allergy Allergy Status Severity Reaction(s) Onset Inactive Treating Comm ents Source Name Type Date Date Clinician NO KNOWN Drug Active Univers ALLERGIE Class ity of S [facility] Family History Family Member Diagnosis Comments Start Date Stop Date Source Maternal grandmother -Leukemia [facility] [place] MD Osbaldo wilcox [facility] [place] Maternal grandmother Diabetes [facility] [place] MD Osbaldo wilcox [facility] Natural sister -Gynecology Universit y of (Ovary, Prashanth wilcox Endometrial, Cancer Cent[facility] r Cervix, Vagina) Natural sister Ovarian cancer [facility] [place] MD Osbaldo wilcox [facility] Social History Social Habit Start Date Stop Date Quantity Comments Source History of tobacco Cigarette Smoker [facility] of use [place] MD Osbaldo wilcox [facility] Exposure to Not sure University SARS-CoV-2 (event) [facility] Alcohol intake 2018-02-25 2018-02-25 Current drinker Unive rsity of 00:00:00 00:00:00 of alcohol Prashanth wilcox (finding) [facility] Cigarettes smoked 2018-01-21 2018-01-21 Univers ity of current (pack per 00:00:00 00:00:00 [place] Farzad Olivas ) - Reported Cancer Ce nter Cigarette 2018-01-21 2018-01-21 University of pack-years 00:00:00 00:00:00 Prashanth wilcox [facility] Tobacco use and 2016-04-06 2016-04-06 Never used Universit y of exposure 00:00:00 00:00:00 [facility] Tobacco Comment 2015-02-25 2015-02-25 smokes 1-3 x per Uni versity of 00:00:00 00:00:00 day. [facility] Sex Assigned At [birth year] Universit y of 00:00:00 00:00:00 Prashanth wilcox [facility] Smoking Status Start Date Stop Date Source Current every day smoker 2016-04-06 00:00:00 Uni versity of [facility] Medications Ordered Filled Start Stop Current Ordering Indication Dosage Frequency Signature Comments Components Source Medication Medication Date Date Medication? Clinician (SIG) Name Name amoxicillin 2020- No 1{tbl} 1 tablet, Univers -clavulanat 12-24 Oral, ity of e 00:30: 23:54 ONCE, 1 [place] (AUGMENTIN) 00 :00 dose, [facility] ical 875-125 mg 12/23/20 at [facility] [employer] [facility] per tablet 1929, 1 tablet [place]
Re ason for Anti-Infec tive: Documented Infection< br>Documen malcolm Infection Site: HEENT
D uration of Therapy: Other (see Comments) guaiFENesin 2020- No 200mg 200 mg, U nivers 100 mg/5 mL 12-23 Oral, ity of solution 23:30: 23:24 ONCE, 1 [place] 200 mg 00 :00 dose, [facility] 12/23/20 at [place] [address], [place] ibuprofen 2020- No 800mg 800 mg, Uni vers (IBU) 12-23 Oral, ity of tablet 800 23:30: 23:24 ONCE, 1 [place] as mg 00 :00 dose, [facility] 12/23/20 at [place] [address], [place] dexamethaso 2020- No 10mg 10 mg, Uni vers ne 12-23 Oral, ity of (DECADRON 23:30: 23:24 [place]CE, 1 [place] PHOSPHATE[place] 00 :00 dose, [facility] nohemi injection 12/23/20 at [facility] h 10 mg 1829, [place] albuterol 2020- No 2{puff} 2 Puff, U nivers (VENTOLIN) 12-23 Inhalation it y of inhaler 2 23:30: 23:19 [place] Puff [place] :00 dose, [facility] 12/23/20 at [place] [address], [place] montelukast Yes [id number] 10mg Take 1 Univers (SINGULAIR) 12-23 tablet by ity of 10 mg 00:00: mouth [place] tablet 00 daily. Medical Branch albuterol Yes [id number] 2{puff} Inhale 2 Univers 90 -08 Puffs ity of mcg/actuati 00:00: every 4 [place] as on inhaler 00 (four) Medical hours as Branch needed for Wheezing or Shortness of Breath. fluticasone Yes [id number] 2{spray Use 2 Univers propionate 08 } Sprays in ity of 50 00:00: each [place] mcg/actuati 00 nostril Medic al on nasal daily. Branch spray amoxicillin 2020- No [id number] 1{tbl} Take 1 Univers -clavulanat 12-23 07-19 tablet by it y of e 875-125 00:00: 04:59 mouth [place] mg per 00 :00 (two) Medical tablet times Branch daily for 10 days. dexAMETHaso 2020- No [id number] 6mg Take 1 Univers ne 12-23 07-14 tablet by ity of (DECADRON) 00:00: 04:59 mouth [place] 6 mg tablet 00 :00 daily with Me dical breakfast Branch for 5 days. naproxen 2017-06 Yes 250mg Take 250 Univ ers (NAPROSYN) 0-08 mg by ity of 250 mg 11:54: mouth [place] tablet 31 daily as MD needed. [facility] naproxen 2017-06 Yes 250mg Take 250 Univ ers (NAPROSYN) 0-08 mg by ity of 250 mg 11:54: mouth [place] tablet 31 daily as MD needed. [facility] amitriptyli 2017-06 Yes daily. Univ ers ne (ELAVIL) 0-08 ity of 25 mg 11:54: [place] tablet 21 MD Mackenzie caro [facility] multivitami 2017-06 Yes 1{tbl} Take 1 Un juan n 0-08 tablet by ity of (multivitam 11:54: mouth [place] in) tablet 21 daily. MD [facility] fish 2017-06 Yes 1g Take 1 g Univers oil-omega-3 0-08 by mouth ity of fatty acids 11:54: [place]. [place] 300-1,000 21 MD mg capsule [facility] amitriptyli 2017-06 Yes daily. Univ ers ne (ELAVIL) 0-08 ity of 25 mg 11:54: [place] tablet 21 [facility] multivitami 2017-06 Yes 1{tbl} Take 1 Un juan n 0-08 tablet by ity of (multivitam 11:54: mouth [place] in) tablet 21 daily. MD [facility] fish 2017- Yes 1g Take 1 g Univers oil-omega-3 0-08 by mouth ity of fatty acids 11:54: daily. Cheryl bermeo 300-1,000 21 MD mg capsule Mackenzie caro [facility] Immunizations Ordered Filled Immunization Date Status Comments Sourconrado e Immunization Name Name TDAP 2015-02-25 Completed [facility] 00:00:00 [facility] Td 2002-06-18 Completed [facility] 00:00:00 [facility] Vital Signs Vital Name Observation Time Observation Value Comments Source Heart rate 2020-12-23 23:20:00 74 /min [facility] Respiratory rate 2020-12-23 23:20:00 18 /min [facility] Oxygen saturation in 2020-12-23 23:20:00 99 /min [facility] Arterial blood by [facility] Pulse oximetry Branch Systolic blood 2020-12-23 22:04:00 132 mm[Hg] Univer sity of pressure [facility] Diastolic blood 2020-12-23 22:04:00 94 mm[Hg[facility] Body temperature 2020-12-23 22:04:00 37.17 [facility] Body weight 2020-12-23 22:04:00 61.236 kg [facility] BMI 2020-12-23 22:04:00 23.73 kg/m2 [facility] Procedures Procedure Date / Time Performed Performing Clinician Sour e NOTICE OF PRIVACY 2020-12-23 22:50:56 Doctor Unassigned, No Univ [facility] PRACTICES Name Medical [place] CONSENT/REFUSAL FOR 2020-12-23 22:48:51 [facility] AND Name Medical Branch TREATMENT XR CHEST 1 VW 2020-12-23 22:32:06 Michelle Dawn [place] f [facility] RAPID STREP SCREEN 2020-12-23 22:13:00 Michelle Dawn [facility] FOR GROUP A Medical Branch ADC,CLC OR LCC ONLY - 2020-12-23 22:13:00 Michelle Dawn [facility] INFLUENZA A & B [facility] DIRECT ANTIGEN Plan of Care Planned Activity Planned Date Details Comments Source Future Scheduled 2021-12-21 COVID-19 Vaccination [facility] [place] Test 05:48:02 (#1) [code = COVID-19 MD And dee dee Cancer Vaccination (#1)] Center Future Scheduled 2021-12-21 COVID-19 Vaccination [facility] [place] Test 05:48:02 (#1) [code = COVID-19 MD And ersganesh Cancer Vaccination (#1)] Center Encounters Start End Encounter Admission Attending Care Care Encounter Source Date/Time Date/Time Type Type Clinicians Facility Department ID 2021-04-18 Emergency [facility] [id number] Univers 06:58:21 ity of [facility] 2020-12-23 2020-12-23 Emergency [facility] [id number] Univers 17:51:00 19:01:00 Michelle Macdonald [id number] i ty [facility] [id number] [facility] [id number] [address] Results Test Description Test Time Test Comments Results Result Comments Source ADC,CLC OR LCC ONLY - INFLUENZA A & B DIRECT ANTIGEN 2020-12 23:15:19 Test Item Value Reference Range Interpretation Comme nts Influenza A (test code = 43307-3) Negative Negative Influenza B (test code = 12565-9) Negative Negative Lab Interpretation (test code = 31581-7) [facility] [id number] 23:05:13 Test Item Value Reference Range Interpretation Comments Streptococcus pyogenes (group A) Negative Negative antigen (test code = 62624-2) Lab Interpretation (test code = Normal 45112-1) [facility] 1 [id number] 22:40:00 No acute cardiopulmonary process.EXAM: XR CHEST 1 VW COMPARISON: None available. HISTORY: none FINDINGS: Support devices: None. Lungs/pleura: ?The lungs are clear. No pleural effusion or pneumothorax isidentified. Heart/Mediastinum: The cardiac silhouette is normal in size. Trachea isnear midline. [facility], Radiant Results Inft User - 12/23/2020 5:41 PM CDTFormatting of this note might be different fromthe original.EXAM: XR CHEST 1 VWCOMPARISON: None available.HISTORY: none FINDINGS:Support devices: None.Lungs/pleura: The lungs are clear. No pleural effusion or pneumothorax isidentified.Heart/Mediastinum: The cardiac silhouette is normal in size. Trachea isnear midline.IMPRESSIONNo acute cardiopulmonary process.[facility]
--- OUTSIDE RECORDS SUMMARY | 2022-08-07 08:49 | XMS REPORT | Clinical Summary ---
:1980 Author Organization [facility] MD Roblero [facility] Address [facility] [place] [address] Care Team Providers Name Role Phone Sekou [...] Vaccination (#1) 01/03/1981 Results Not on fileafter 08/07/2021 Insurance Payer Benefit Plan / Subscriber ID Effective Dates Phone Addre ss Type Group [facility] [id number] 2018-Presen [address] [place] [address] BLUE [employer] BLUE [employer] PPO POS [id number] 2016-Prese [address] [place] [address] Care Teams Hand Alterations Tailor Relationship Specialty Start Date End Date Sekou Borjas MD PCP - General Gynecological Oncology 01/15/18 [facility] [place] [address] Wilberto Wiseman PCP - External 01/31/18 MD Geovany Referring [address] [place], [place] [address]
--- NOTE | 2022-08-07 09:48 | RAD REPORT ---
EXAM DESCRIPTION: Lexie Thao And Derrek (2 Views)08/07/2022 9:15 am CLINICAL HISTORY: Chest pain COMPARISON: 2020 FINDINGS: The lungs appear clear of acute infiltrate. The heart is normal size IMPRESSION: No acute abnormalities displayed
[2022-08-07 11:48] LABS: Urine Blood Negative (Negative); Urine Glucose Negative (Negative); Urine Protein 1+ (Negative); Urine Specific Gravity 1.025 (1.005-1.030); Urine pH 6.5 (5.0-7.0)
[2022-08-07 12:00] LABS: Urine Specific Gravity/Preg 1.025 (1.005-1.030)
[2022-08-07 12:14] LABS: SARS-COV-2 RT PCR NEGATIVE (NEGATIVE)
--- NOTE | 2022-08-07 12:22 | EDPHYS ---
Physician Documentation [facility] [place] Name: Dottie Blanca Age: 42 yrs Sex: Female : 1980 Arrival Date: 08/07/2022 Time: 08:47 Bed IW1 Private MD: ED Physician Ba Nina HPI: 08/07 09:31 This 42 yrs old Female presents to ER via Ambulatory with complaints of Chest Pain, rn Cough. 09:31 The patient or guardian reports cough, that is intermittent, described as mild, with no rn sputum, flu symptoms. Onset: The symptoms/episode began/occurred 3 day(s) ago. Severity of symptoms: At their worst the symptoms were mild, in the emergency department the symptoms are unchanged. Modifying factors: The symptoms are alleviated by nothing. Associated signs and symptoms: Pertinent positives: chest pain, rhinorrhea, Pertinent negatives: fever. The patient has not experienced similar symptoms in the past. The patient has not recently seen a physician. Pt reports cough, congestion, left posterior chest pain with cough, + smoker, no sob. No anterior chest pain. NO hx of dvt/PE. NO abd pain. No vomiting. . Historical: - Allergies: 09:17 No Known Allergies; ss - PMHx: 09:17 High Cholesterol; HPylori; ss - PSHx: 09:17 hysterectomy; ss - Immunization history:: Client reports having NOT received the Covid vaccine. - Social history:: Smoking status: Patient reports the use of cigarette tobacco products, smokes one-half pack cigarettes per day. - Family history:: not pertinent. - Hospitalizations: : No recent hospitalization is reported. ROS: 09:31 Constitutional: + chills Eyes: Negative for injury, pain, redness, and discharge, ENT: rn + sore throat and congestion Neck: Negative for injury, pain, and swelling, Cardiovascular: Negative for palpitations, and edema, Respiratory: Negative for shortness of breath, wheezing Abdomen/GI: Negative for abdominal pain, nausea, vomiting, diarrhea, and constipation, Back: Negative for injury and pain, MS/Extremity: Negative for injury and deformity, Skin: Negative for injury, rash, and discoloration, Neuro: Negative for headache, weakness, numbness, tingling, and seizure. Exam: 09:31 Constitutional: This is a well developed, well nourished patient who is awake, alert, rn and in no acute distress. Head/Face: Normocephalic, atraumatic. Eyes: Periorbital areas with no swelling, redness, or edema. ENT: MMM, no stridor, no oral swelling or exudate Neck: Trachea midline, no masses palpated, and no cervical lymphadenopathy. Supple, full range of motion without nuchal rigidity, or vertebral point tenderness. No Meningismus. Cardiovascular: Regular rate and rhythm. No pulse deficits. Respiratory: No increased work of breathing, no retractions or nasal flaring. Abdomen/GI: Soft, non-tender Skin: Warm, dry MS/ Extremity: Pulses equal, no cyanosis. Neuro: Awake and alert, GCS 15 13:54 ECG was reviewed by the Attending Physician. rn Vital Signs: 09:16 BP 121 / 88; Pulse 77; Resp 16; Temp 98.2(O); Pulse Ox 100% on R/A; Weight 58.97 kg; ss Height 5 ft. 3 in. (160.02 cm); Pain 8/10; 13:13 BP 120 / 84; Pulse 74; Resp 15; Pulse Ox 100% ; jl7 09:16 Body Mass Index 23.03 (58.97 kg, 160.02 cm) ss MDM: 08:50 Patient medically screened. rn 10:11 Differential Diagnosis: Bronchitis Influenza Upper Respiratory Infection Sinusitis rn Viral Syndrome Pneumonia Other COVID, Flu. Independent interpretation of the following test(s) in the Emergency Department X-Ray: My interpretation is CXR images negative for pneumonia/pneumothorax. 11:05 Independent interpretation of the following test(s) in the Emergency Department X-Ray: rn My interpretation is CXR images neg for pneumonia/pneumothorax. 12:21 Data reviewed: vital signs, nurses notes, lab test result(s), radiologic studies, plain rn films, and as a result, I will discharge patient. I considered the following discharge prescriptions or medication management in the emergency department I discussed and recommended Over The Counter medications, Pain Medications: At this time, prescription pain medications are not recommended, Medications were administered in the Emergency Department. See MAR. Counseling: I had a detailed discussion with the patient and/or guardian regarding: the historical points, exam findings, and any diagnostic results supporting the discharge/admit diagnosis, lab results, radiology results, the need for outpatient follow up, to return to the emergency department if symptoms worsen or persist or if there are any questions or concerns that arise at home. Response to treatment: the patient's symptoms have mildly improved after treatment, and as a result, I will discharge patient. Special discussion: I discussed with the patient/guardian in detail that at this point there is no indication for admission to the hospital. It is understood, however, that if the symptoms persist or worsen the patient needs to return immediately for re-evaluation. 12:22 Counseling: I had a detailed discussion with the patient and/or guardian regarding: rn smoking cessation. 12:53 ED course: Pt was initially ok with discharge, was thankful and happy when given rn results, when nurse went to discharge patient she became visibly upset, tearful, upset that she didn't have blood tests drawn and wants to go somewhere else for testing. Explained to her that her presentation more consistent with viral process and smoking complications, she seems to understand but at this point I do not believe she will be content without further testing and she is working herself up even more. Tests added and anticipate dc home if negative.. 13:53 ED course: Trop neg, EKG normal, CT chest neg for acute findings. Will dc home as rn initially planned, now has peace of mind. . 08/07 09:03 Order name: COVID-19/FLU A+B rn 08/07 11:49 Order name: Urine Dipstick-Ancillary; Complete Time: 11:50 EDMO 08/07 11:57 Order name: Urine --Ancillary (enter results) eb 08/07 12:00 Order name: Urine --Ancillary; Complete Time: 12:04 EDMO 08/07 12:14 Order name: COVID-19/FLU A+B; Complete Time: 12:20 EDMO 08/07 12:53 Order name: Basic Metabolic Panel [facility] 08/07 08:54 Order name: XRAY Chest Pa And Lat (2 Views) rn 08/07 09:48 Order name: RAD; Complete Time: 10:11 EDMO 08/07 12:53 Order name: CBC with Diff [facility] 08/07 12:53 Order name: Troponin HS 7 08/07 12:53 Order name: CT Chest For PE Angio rn 08/07 13:26 Order name: CBC with Automated Diff; Complete Time: 13:51 EDMS 08/07 13:33 Order name: Basic Metabolic Panel; Complete Time: 13:51 EDMS 08/07 13:33 Order name: Troponin High Sensitivity; Complete Time: 13:51 EDMS 08/07 11:24 Order name: Urine Dipstick-Ancillary (obtain specimen); Complete Time: 11:47 rn 08/07 11:24 Order name: Urine Test (obtain specimen); Complete Time: 11:47 rn 08/07 12:53 Order name: EKG; Complete Time: 12:53 [facility] 08/07 12:53 Order name: Cardiac monitoring; Complete Time: 13:13 [facility] 08/07 12:53 Order name: EKG - Nurse/Tech; Complete Time: 13:09 [facility] 08/07 12:53 Order name: IV Saline Lock; Complete Time: 13:09 [facility] 08/07 12:53 Order name: Labs collected and sent; Complete Time: 13:09 [facility] 08/07 12:53 Order name: O2 Per Protocol; Complete Time: 13: [facility] 08/07 12:53 Order name: O2 Sat Monitoring; Complete Time: 13: [facility] 08/07 13:50 Order name: CT; Complete Time: 13:51 EDMS EC:54 Rate is 66 beats/min. Rhythm is regular. QRS [place] is Normal. NM interval is normal. QRS rn interval is normal. QT interval is normal. No Q waves. T waves are Normal. No ST changes noted. Clinical impression: Normal ECG. Interpreted by me. Reviewed by me. Administered Medications: 13:13 Drug: Ketorolac 15 mg Route: IVP; Site: right antecubital; [facility] 13:40 Follow up: Response: No adverse reaction; Pain is unchanged, physician notified jl7 Disposition Summary: 08/07/22 13:53 Discharge Ordered Location: Home(08/07/22 13:53) rn Problem: new(08/07/22 13:53) rn Symptoms: have improved(08/07/22 13:53) rn Condition: Stable(08/07/22 13:53) rn Diagnosis - Chest pain, unspecified(08/07/22 13:53) rn - Cough(08/07/22 13:53) rn Followup: rn - With: Private Physician - When: As needed - Reason: Recheck today's complaints, Re-evaluation by your physician Discharge Instructions: - Discharge Summary Sheet rn - Nonspecific Chest Pain, Adult rn - Pain Without a Known Cause rn - Pleurisy rn - Steps to Quit Smoking rn - Cough, Adult rn Forms: - Medication Reconciliation Form rn - Thank You Letter rn - Antibiotic rn community - Prescription Opioid Use rn Prescriptions: - Zithromax Z-Aramis 250 mg Oral Tablet - take 1 tablet by ORAL route as directed for 5 days Day 1 - take two (2) tablets rn one time. Day 2, 3, 4 , 5 take one (1) tablet once daily.; 6 tablet; Refills: 0, Product Selection Permitted Signatures: Dispatcher [employer] EDMO Ba Nina MD MD rn Smirch, Shelby RN RN Genet Hooks RN RN [id number] Corrections: (The following items were deleted from the chart) 12:54 12:22 Home rn rn 12:54 12:22 new rn rn 12:54 12:22 have improved rn rn 12:54 12:22 Stable rn rn :54 12:22 Cough rn rn 12:54 12:22 Chest pain, unspecified rn rn
--- NOTE | 2022-08-07 12:22 | ER ---
Nurse's Notes [facility] Name: Dottie Blanca Age: 42 yrs Sex: Female : 1980 Arrival Date: 08/07/2022 Time: 08:47 Bed IW1 Private MD: Diagnosis: Chest pain, unspecified;Cough Presentation: 08/07 09:16 Chief complaint: Patient states: mild cough and L sided chest discomfort that began ss Sunday. Coronavirus screen: Client denies travel out of the [place] in the last 14 days. Ebola Screen: Patient denies exposure to infectious person. Patient denies travel to an Ebola-affected area in the 21 days before illness onset. Initial Sepsis Screen: Does the patient meet any 2 criteria? No. Patient's initial sepsis screen is negative. Does the patient have a suspected source of infection? No. Patient's initial sepsis screen is negative. Risk Assessment: Do you want to hurt yourself or someone else? Patient reports no desire to harm self or others. Onset of symptoms was August 04, 2022. 09:16 Method Of Arrival: Ambulatory ss 09:16 Acuity: RENETTA 3 ss Historical: - Allergies: 09:17 No Known Allergies; ss - PMHx: 09:17 High Cholesterol; HPylori; ss - PSHx: 09:17 hysterectomy; ss - Immunization history:: Client reports having NOT received the Covid vaccine. - Social history:: Smoking status: Patient reports the use of cigarette tobacco products, smokes one-half pack cigarettes per day. - Family history:: not pertinent. - Hospitalizations: : No recent hospitalization is reported. Assessment: 13:57 Reassessment: Dr. Nina in triage discussing results and POC. Pt verbalizes jl7 understanding. Vital Signs: 09:16 BP 121 / 88; Pulse 77; Resp 16; Temp 98.2(O); Pulse Ox 100% on R/A; Weight 58.97 kg; ss Height 5 ft. 3 in. (160.02 cm); Pain 8/10; 13:13 BP 120 / 84; Pulse 74; Resp 15; Pulse Ox 100% ; jl7 09:16 Body Mass Index 23.03 (58.97 kg, 160.02 cm) ED Course: 08:47 Patient arrived in ED. mr 08:50 Ba Nina MD is Attending Physician. rn 09:17 Triage completed. ss 09:17 Arm band placed on right wrist. ss 09:56 XRAY Chest Pa And Lat (2 Views) Sent. jl7 11:28 COVID-19/FLU A+B Sent. ss 12:50 Urine --Ancillary (enter results) Sent. jl7 13:11 Basic Metabolic Panel Sent. bc6 13:11 CBC with Diff Sent. bc6 13:11 Troponin HS Sent. bc6 13:11 Inserted saline lock: 20 gauge in left antecubital area, using aseptic technique. bc6 13:57 No provider procedures requiring assistance completed. IV discontinued, intact, jl7 bleeding controlled, No redness/swelling at site. Pressure dressing applied. Administered Medications: 13:13 Drug: Ketorolac 15 mg Route: IVP; Site: right antecubital; jl7 13:40 Follow up: Response: No adverse reaction; Pain is unchanged, physician notified jl7 Medication: 13:57 VIS not applicable for this client. jl7 Outcome: 12:22 Discharge ordered by MD. rn 13:53 Discharge ordered by MD. rn 13:58 Discharged to home ambulatory. jl7 13:58 Condition: stable 13:58 Discharge instructions given to patient, Instructed on discharge instructions, follow up and referral plans. medication usage, Demonstrated understanding of instructions, follow-up care, medications, Prescriptions given X 1. 13:58 Patient left the ED. jl7 Signatures: Dione Bui Ba Nina MD MD rn Smirch, Shelby, RN RN ss Leal, Jahala, RN RN jl7 Lesly Ortega [facility]
[2022-08-07 13:13] LABS: Absolute Lymphocytes (CBC) 2.7 K/uL (0.7-4.9); Hematocrit 42.2 % (36.0-45.0); Lymphocytes % 26.2 % (15.3-44.8); MCV 91.9 fL (80-100); MPV 7.6 fL (7.6-11.3); RBC Red Blood Cell Count 4.59 M/uL (3.86-4.86)
[2022-08-07] MEDS ORDERED: KETOROLAC 30 MG/ML INJ ONE (13:15)
[2022-08-07 13:29] LABS: BUN Blood Urea Nitrogen 12 mg/dL (7-18); Bicarbonate 26 mmol/L (21-32); Glomerular Filtration Rate 111 ml/min (=/>90); Glucose Level 94 mg/dL (74-106); Potassium 3.7 mmol/L (3.5-5.1); Sodium Level 136 mmol/L (136-145)
[2022-08-07 13:33] LABS: Troponin High Sensitivity < 3.0 pg/mL (<58.9)
--- NOTE | 2022-08-07 13:49 | RAD REPORT ---
EXAM DESCRIPTION: CT - Chest For Pe Angio - 08/07/2022 1:36 pm CLINICAL HISTORY: Chest pain. CHEST PAIN COMPARISON: Chest For Pe Angio dated 05/06/2020 TECHNIQUE: CT angiogram of the pulmonary arteries was performed with MIP. All CT scans are performed using dose optimization technique as appropriate and may include automated exposure control or mA/KV adjustment according to patient size. FINDINGS: No evidence of pulmonary thromboembolism. No acute aortic finding demonstrated. The lungs are clear. No significant pericardial or pleural fluid. No concerning bony finding. IMPRESSION: No evidence of pulmonary thromboembolism. No acute lung findings.
[2022-08-07 15:00] VITALS: TEMP 98.2; O2SAT 100
[2022-08-07 15:01] VITALS: BP 120/84
--- NOTE | 2022-08-07 16:37 | EKG ---
Test Date: 2022-08-07 Test Time: 13:08:37 Home Fire Alarm Installer: TOM MEASUREMENT RESULTS: Intervals: Rate: 66 MI: 136 QRSD: 78 QT: 400 QTc: 419 [place]: P: 16 MI: 136 QRS: 33 T: 31 INTERPRETIVE STATEMENTS: Normal sinus rhythm Normal ECG Compared to ECG 12/17/2020 13:17:15 Sinus arrhythmia no longer present Myocardial infarct finding no longer present Electronically Signed On 08-07-22 16:36:07 GRAPHICS SOFTWARE ENGINEER by Niraj Hess
== END 2022-08-07 13:58 | disposition home or self-care (01) ==
LOC: ER 08:45
DX: R07.9 Chest pain, unspecified (principal); R05.9 Cough, unspecified; F17.210 Nicotine dependence, cigarettes, uncomplicated; Z20.822 Contact with and (suspected) exposure to COVID-19
CPT/HCPCS: 93005; 85025; 80048; 36415; 81025; 81003; 84484; 0240U; 71275; 71046; 96374; 99284; Q9967

== ENCOUNTER 2024-04-03 09:23 | Inpatient (IN) | payer BC ==
--- OUTSIDE RECORDS SUMMARY | 2024-04-03 09:26 | XMS REPORT | Clinical Summary ---
Author Name Unknown Organization [facility] [place] Address [address] [place] [address] Care Team Providers Care Lift Truck Mechanic Name Role Phone Sekou Borjas MD Primary Care Provider [phone] Wilberto Wiseman MD Unavailable [phone] Allergies No known active allergies Medications Medication Sig Dispensed Refills Start Date End Date Status amitriptyline (ELAVIL) 25 mg tablet daily. Active multivitamin (multivitamin) tablet Take 1 tablet by mouth daily. Active fish oil-omega-3 fatty acids 300-1,000 mg capsule Take 1 g by mouth daily. Active naproxen (NAPROSYN) 250 mg tablet Take 250 mg by mouth daily as needed. Active Active Problems Problem Noted Date Diagnosed Date Menorrhagia 01/21/2018 Dysmenorrhea 01/21/2018 Surgical History Surgery Date Site/Laterality Comments TUBAL LIGATION 06/18/2002 - 06/17/2003 ROBOTIC LAPAROSCOPIC HYSTERECTOMY 02/05/2018 Robotic Assisted hysterectomy, bilateral salpingectomy Medical History Medical History Date Comments Hyperlipidemia 12/20/2017 Polyp 2016 Uterus Renal stone 2002 Sexually transmitted disease 2015 Hpv Uterine leiomyoma 01/12/18 Polycystic ovarian syndrome 1994 has had cysts since younger Endometriosis 01/12/18 Depressive disorder Family History Medical History Relation Name Comments -Leukemia Maternal Grandmother Karli Diabetes Maternal Grandmother Karli -Gynecology (Ovary, Endometr ial, Cervix, Vagina) Sister Amanda Ovarian cancer Sister Amanda Relation Name Status Comments Maternal Grandmother Karli Sister Amanda Social History Tobacco Use Types Packs/Day Years Used Date Smoking Tobacco: Every Day Cigarettes 0.3 8 Smokeless Tobacco: Never Tobacco Cessation:Ready to Q uit: No Alcohol Use Standard Drinks/Week Comments Yes 0 (1 standard drink = 0.6 oz pur e alcohol) Sex and Gender Information Value Date Recorded Sex Assigned at Not on file Gender Identity Not on file Sexual Orientation Not on file Obstetrics History Para Term AB IAB SAB Ectopic Multiple Livin g Live Births 3 3 Date Outcome GA Total Labor Labor/2nd/3rd Weight Sex Type Anes PTL Stacia A1 A5 Name Clin Para Para Para Comments Normal vaginal deliveries. Plan of Treatment Health Maintenance Due Date Last Done Comments COVID-19 Vaccine ( - 2023-2 5 season) 2024 Influenza Vaccine (#1) 2024 Pneumococcal Vaccine: Pediat rics (0 to 5 Years) and At-Risk Patients (6 to 64 Years) Aged Out No longer eligi ble based on patient's age to complete this topic Care Teams Lift Truck Mechanic Relationship Specialty Start Date End Date Sekou Borjas MD [address] [place] [id number] [email or web address] PCP - General Gynecological Oncology 01/15/18 Wilberto Wiseman MD [address] [place] [id number] [email or web address] PCP - External Referring 01/31/18
[2024-04-03] MEDS ORDERED: CEFEPIME 2 GM VIAL ONE (10:25)
[2024-04-03] MEDS ORDERED: VANCOMYCIN 1 GM/VIAL ONE (10:25)
[2024-04-03] MEDS ORDERED: NA CHLORIDE 0.9% 2,000 ML ONE (10:26)
[2024-04-03 10:29] LABS: Absolute Basophils 0.1 K/uL (0-0.5); Absolute Eosinophils 0.1 K/uL (0-0.5); Absolute Lymphocytes (CBC) 2.8 K/uL (0.7-4.9); Absolute Monocytes 0.6 K/uL (0.1-1.3); Absolute Neutrophil 6.5 K/uL (1.8-8.0); Basophils % 0.5 % (0-1.3); Eosinophils % 1.2 % (0-4.4); Hematocrit 43.2 % (36.0-45.0); Hemoglobin 14.6 g/dL (12.0-15.0); Lymphocytes % 27.9 % (15.3-44.8); MCH 30.5 pg (27.0-35.0); MCHC 33.7 g/dL (32.0-36.0); MCV 90.4 fL (80-100); MPV 8.1 fL (7.6-11.3); Monocytes % 6.3 % (3.3-12.3); Neutrophils % 64.1 % (41.7-73.7); Platelets 521 thou/uL (152-406); RBC Red Blood Cell Count 4.78 M/uL (3.86-4.86); Red Cell Distribution Width 13.2 % (12.1-15.2)
[2024-04-03 10:33] LABS: Specific Gravity 1.006 (1.005-1.030); Urine Bilirubin NEGATIVE (Negative); Urine Blood Negative (Negative); Urine Clarity Clear (Clear); Urine Color Light-Yellow (Yellow); Urine Glucose NEGATIVE (Negative); Urine Ketones NEGATIVE (Negative); Urine Microscopic Reflex YN NO UMIC; Urine Nitrite NEGATIVE (Negative); Urine Protein NEGATIVE (Negative); Urine Urobilinogen Normal (Normal); Urine pH 6.5 (5.0-7.0)
[2024-04-03 10:36] LABS: PT Prothrombin Time 10.7 SECONDS (9.4-12.5); PTT, Activated Partial Thromb 36.2 SECONDS (24.3-36.9); Protime INR 0.95
[2024-04-03 11:12] LABS: Albumin/Globulin Ratio 0.9 (1.1-1.8); Anion Gap 11.6 mEq/L (5.0-15.0); Bilirubin Total 0.4 mg/dL (0.2-1.0); Globulin 4.3 g/dL (2.3-3.5); Potassium 3.6 mEq/L (3.5-5.1); Protein, Total 8.3 g/dL (6.4-8.2)
--- NOTE | 2024-04-03 12:29 | RAD REPORT ---
EXAM: Chest For Pe Angio TECHNIQUE: CT angiogram of the chest was performed following intravenous contrast administration, inc luding sagittal and coronal as well as maximum intensity projection reformats. One or more of the following dose reduction techniques were used: Automated exposure control, adjustment of the mA and k V according to patient size, and iterative reconstruction. Unless otherwise specified, incidental findings do not require dedicated imaging follow-up. INDICATION: [facility] DYSPNEA Bed Name: 20 N COMPARISON: Chest 08/07/2022. FINDINGS: LINES/TUBES: None. PULMONARY ARTERIES: Main pulmonary arteries are normal in caliber. No filling defects within the pul monary arteries to suggest pulmonary embolus. LUNGS AND AIRWAYS: The lungs and central airways are normal without focal abnormality. PLEURA: No effusion or pneumothorax. HEART AND MEDIASTINUM: The visualized thyroid gland is normal. No mediastinal, hilar, or axillary lym phadenopathy. Heart is unremarkable. No pericardial effusion. SOFT TISSUES AND BONES: No acute osseous abnormality. No significant soft tissue finding. UPPER ABDOMEN: Unremarkable. IMPRESSION: No evidence of acute central pulmonary emboli. No suspicious intrathoracic findings..
--- NOTE | 2024-04-03 12:34 | RAD REPORT ---
EXAMINATION: CT Abdomen Pelvis W Contrast CLINICAL INDICATION: Female, 43 years old. abscesses TECHNIQUE: CT abdomen and pelvis was performed, after the administration of IV contrast, as per [facility] protocol. Axial, sagittal and coronal reconstructions were obtained. One or more of the following dose reduction techniques were used: Automated exposure control, adjustment of the mA and k V according to patient size, and iterative reconstruction. Unless otherwise specified, incidental findings do not require dedicated imaging follow-up. COMPARISON: 07/18/2022 FINDINGS: LOWER CHEST: The visualized lung bases are clear. LIVER: Normal in size and contour. No focal lesion. BILIARY SYSTEM: No suspicious abnormalities. SPLEEN: Normal size. No focal lesion. PANCREAS: No mass, ductal dilation, or roslyn-pancreatic fluid. ADRENALS: Normal; no mass. KIDNEYS: Normal size and contour. No hydronephrosis. URINARY BLADDER: Unremarkable. GASTROINTESTINAL TRACT: No evidence of free air, significant intra-abdominal free fluid, bowel obstru ction or abscess. Small crescentic calcification in the right lower quadrant, appears to be related to small bowel, may represent calcified material within a diverticulum or serosal inclusion c yst, stable. APPENDIX: Normal appendix. LYMPH NODES: No lymphadenopathy. MUSCULOSKELETAL: No acute or suspicious osseous abnormality. ADDITIONAL FINDINGS: Small foci of skin thickening and fat stranding, along the skin of the lower abd omen/perineal region, largest seen on axial image 78/91. No deep or inflammatory changes or fluid collections noted. Status post hysterectomy. IMPRESSION: Areas of dermal skin thickening and underlying fat stranding, with no evidence of deep inflammatory c hanges or fluid collections. Other incidental findings as above.
--- NOTE | 2024-04-03 13:33 | ER ---
Nurse's Notes [facility] Name: Dottie Blanca Age: 43 yrs Sex: Female : 1980 Arrival Date: 04/03/2024 Time: 09:23 Bed 20 Private MD: Diagnosis: Severe sepsis without septic shock;Cutaneous abscess of suprapubic region Presentation: 04/03 09:34 Chief complaint: Patient states: Noticed a bump on pubic area Sunday, thought it was a ph spider bite, then noticed other bumps, also c/o fever, dizziness, fatigue, SOB, N/V, tried antibiotics at home but not helping. Coronavirus screen: Vaccine status: Patient reports being unvaccinated. Ebola Screen: No symptoms or risks identified at this time. Initial Sepsis Screen: Does the patient meet any 2 criteria? No. Patient's initial sepsis screen is negative. Does the patient have a suspected source of infection? No. Patient's initial sepsis screen is negative. Risk Assessment: Do you want to hurt yourself or someone else? Patient reports no desire to harm self or others. Onset of symptoms was April 03, 2024. 09:34 Method Of Arrival: Ambulatory 09:34 Acuity: RENETTA 2 kb3 Triage Assessment: 09:45 General: Appears distressed, uncomfortable, Behavior is cooperative, appropriate for ll1 age, anxious. Pain: Complains of pain in pelvis Quality of pain is described as aching. Neuro: Reports weakness. Respiratory: Reports shortness of breath labored breathing pain with respiration. GI: Reports nausea, vomiting. Derm: healing abscess to pubic region. Several very small abscess in that area. No drainage. Patient states site is getting better. Her body just feels worse. Abscess located on suprapubic. 09:56 Bite description: bite sustained to pelvis by an unknown animal, animal information: ll1 vaccination(s) is not applicable. 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 - Infectious Disease History:: Denies. - Social history:: Smoking status: Patient reports the use of cigarette tobacco products, Reported history of juuling and/or vaping. - Family history:: not pertinent. Screenin:[facility] ED Fall Risk Assessment (Adult) History of falling in the last 3 months, ll1 including since admission No falls in past 3 months (0 pts) Confusion or Disorientation No (0 pts) Intoxicated or Sedated No (0 pts) Impaired Gait No (0 pts) Mobility Assist Device Used No (0 pt) Altered Elimination No (0 pt) Score/Fall Risk Level 0 - 2 = Low Risk Maintained a safe environment, Hourly rounding (assess needs \T\ fall precautionary measures) done. Abuse screen: Denies threats or abuse. Nutritional screening: No deficits noted. Tuberculosis screening: No symptoms or risk factors identified. Assessment: 10:30 Reassessment: No changes from previously documented assessment. Patient and/or family ll1 updated on plan of care and expected duration. Pain level reassessed. Patient is alert, oriented x 3, equal unlabored respirations, skin warm/dry/pink. 11:40 Reassessment: No changes from previously documented assessment. Patient and/or family ll1 updated on plan of care and expected duration. Pain level reassessed. Patient is alert, oriented x 3, equal unlabored respirations, skin warm/dry/pink. 12:00 Reassessment: No changes from previously documented assessment. to CT via wheelchair. ll1 12:25 Reassessment: No changes from previously documented assessment. Patient and/or family ll1 updated on plan of care and expected duration. Pain level reassessed. Patient is alert, oriented x 3, equal unlabored respirations, skin warm/dry/pink. 13:20 Reassessment: appears to be resting comfortably. ll1 13:59 Derm: Skin is intact, Skin is pink, warm \T\ dry. ll1 19:12 Reassessment: Patient appears in no apparent distress at this time. Patient and/or kj2 family updated on plan of care and expected duration. Pain level reassessed. Patient is alert, oriented x 3, equal unlabored respirations, skin warm/dry/pink. Vital Signs: 09:34 BP 125 / 100; Pulse 120; Resp 23; Temp 98(O); Pulse Ox 98% on R/A; Weight 61.23 kg; ph Height 5 ft. 3 in. ; 09:47 BP 122 / 97; Pulse 115; Resp 20; Pulse Ox 99% on R/A; ll1 09:55 Pulse 110; Resp 19; ll1 10:30 Pulse 98; Resp 18; Pulse Ox 100% ; ll1 11:45 BP 137 / 98; Pulse 78; Resp 18; Pulse Ox 97% ; ll1 13:19 Pulse 67; Resp 17; Pulse Ox 98% on R/A; ll1 14:00 BP 121 / 81; Pulse 75; Resp 17; Temp 97.9; Pulse Ox 100% ; ll1 19:14 BP 122 / 76; Pulse 74; Resp 18; Temp 97.9; Pulse Ox 100% ; kj2 09:34 Body Mass Index 23.91 (61.23 kg, 160.02 cm) ph ED Course: 09:25 Patient arrived in ED. mg5 09:30 Haile Avila MD is Attending Physician. rt 09:36 Triage completed. ph 09:36 Arm band placed on Patient placed in an exam room. ph 09:52 Keiry Thomas RN is Primary Nurse. ll1 09:55 Patient has correct armband on for positive identification. Bed in low position. Call 1 light in reach. Provided Education on: ER procedures and process. Client placed on continuous cardiac and pulse oximetry monitoring. NIBP monitoring applied. 11:45 Warm blanket given. ll1 12:11 CT Chest For PE Angio In Process Unspecified. EDMS 12:11 CT Abd/Pelvis - IV Contrast Only In Process Unspecified. EDMS 13:32 Roland Londono is Hospitalizing Provider. rt 13:59 No provider procedures requiring assistance completed. Patient admitted, IV remains in ll1 place. 15:05 1505 CM met with at the bedside in the ED exam room. Demographic sheet ane confirmed and changes sent to appropriate personnel. Patient states she lives with her significant other named Zoltan in a single story home. Patient's PCP is Nicole Sage NP. No MPOA in place. No HH, home oxygen, no DME or other medical services at this time. Preferred plan is to return home upon discharge and she states Zoltan will transport her home. CM team will continue to follow and coordinate care during this hospital stay. 19:13 Report received from ISAEL Ricci. kj2 Administered Medications: 10:29 Drug: NS 0.9% IV 2000 ml IV at 2 bolus Per protocol; to be given as a bolus over 60 ll1 minutes Route: IV; Rate: 2 bolus; Site: right antecubital; 14:03 Follow up: Response: No adverse reaction; IV Status: Completed infusion; IV Intake: ll1 2000ml 10:30 Drug: Cefepime IVPB 2 grams IVPB at 200 ml/hr once over 30 mins; (mix in NS 100 mL) ll1 Route: IVPB; Rate: 200 ml/hr; Infused Over: 30 mins; Site: right antecubital; 11:44 Follow up: Response: No adverse reaction; IV Status: Completed infusion; IV Intake: [id number] 11:44 Drug: vancoMYCIN IVPB 1 grams IVPB once over 2 hrs Route: IVPB; Infused Over: 2 hrs; ll1 Site: right antecubital; 14:03 Follow up: Response: No adverse reaction; IV Status: Completed infusion; IV Intake: [id number] Medication: 14:00 VIS not applicable for this client. ll1 Intake: 11:44 IV: 20ml; Total: 20ml. ll1 14:03 IV: 20ml; Total: 40ml. ll1 14:03 IV: 2000ml; Total: 2040ml. ll1 Outcome: 13:32 Decision to Hospitalize by Provider. rt 13:59 Admitted to ER Hold. Please see [facility] for further documentation. ll1 13:59 Condition: stable 13:59 Instructed on the need for admit, 21:19 Patient left the ED. rv1 Signatures: Dispatcher [employer] Katelyn Bennett RN RN ph Lewis, Lynsay, RN RN ll1 Delia Dennis RN RN kb3 Haile Avila MD MD rt Quin Shultz rv1 Aida Mendoza mg5 Tatyana Fernandez RN RN kj2 Kenna Clements RN RN ane Corrections: (The following items were deleted from the chart) 13:42 09:34 Acuity: RENETTA 3 ph kb3
--- NOTE | 2024-04-03 13:33 | EDPHYS ---
Physician Documentation [facility] Name: Dottie Blanca Age: 43 yrs Sex: Female : 1980 Arrival Date: 04/03/2024 Time: 09:23 Bed 20 Private MD: ED Physician Haile Avila HPI: 04/03 10:27 This 43 yrs old Female presents to ER via Ambulatory with complaints of Insect Bite. rt 10:27 A few days ago, patient noticed a bump to the suprapubic region. Patient noted that rt developed a few other bumps, was able to drain a significant pus from one of them. States that those are improving, she did start taking ampicillin and Bactrim that she had leftover from a previous infection. Patient states that the day, she developed worsening shortness of breath, rib pain, generalized bodyaches. Reports having a fever, did take Tylenol prior to arrival. Symptoms are moderate in severity, no other aggravating or alleviating factors.. 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 - Infectious Disease History:: Denies. - Social history:: Smoking status: Patient reports the use of cigarette tobacco products, Reported history of juuling and/or vaping. - Family history:: not pertinent. ROS: 10:27 Cardiovascular: Negative for chest pain, palpitations, and edema, Abdomen/GI: Negative rt for abdominal pain, nausea, vomiting, diarrhea, and constipation, MS/Extremity: Negative for injury and deformity, Neuro: Negative for headache, weakness, numbness, tingling, and seizure, 10:27 Constitutional: Positive for body aches, fever, 10:27 Respiratory: Positive for shortness of breath, Negative for cough, 10:27 Skin: Positive for abscess, Exam: 10:27 Constitutional: This is a well developed, well nourished patient who is awake, alert, rt and in no acute distress. Head/Face: Normocephalic, atraumatic. Chest/axilla: Normal chest wall appearance and motion. Nontender with no deformity. No lesions are appreciated. Cardiovascular: Regular rate and rhythm with a normal S1 and S2. No gallops, murmurs, or rubs. Normal PMI, no JVD. No pulse deficits. Respiratory: Lungs have equal breath sounds bilaterally, clear to auscultation and percussion. No rales, rhonchi or wheezes noted. No increased work of breathing, no retractions or nasal flaring. Abdomen/GI: Soft, non-tender, with normal bowel sounds. No distension or tympany. No guarding or rebound. No evidence of tenderness throughout. MS/ Extremity: Pulses equal, no cyanosis. Neurovascular intact. Full, normal range of motion. Neuro: Awake and alert, GCS 15, oriented to person, place, time, and situation. Cranial nerves II-XII grossly intact. Motor strength 5/5 in all extremities. Sensory grossly intact. Cerebellar exam normal. Normal gait. 10:27 Skin: Apparent healing abscesses to the suprapubic region, no fluctuance, drainable abscess noted, no surrounding erythema. 11:52 ECG was reviewed by the Attending Physician. rt Vital Signs: 09:34 BP 125 / 100; Pulse 120; Resp 23; Temp 98(O); Pulse Ox 98% on R/A; Weight 61.23 kg; ph Height 5 ft. 3 in. ; 09:47 BP 122 / 97; Pulse 115; Resp 20; Pulse Ox 99% on R/A; ll1 09:55 Pulse 110; Resp 19; ll1 10:30 Pulse 98; Resp 18; Pulse Ox 100% ; ll1 11:45 BP 137 / 98; Pulse 78; Resp 18; Pulse Ox 97% ; ll1 13:19 Pulse 67; Resp 17; Pulse Ox 98% on R/A; ll1 14:00 BP 121 / 81; Pulse 75; Resp 17; Temp 97.9; Pulse Ox 100% ; ll1 19:14 BP 122 / 76; Pulse 74; Resp 18; Temp 97.9; Pulse Ox 100% ; kj2 09:34 Body Mass Index 23.91 (61.23 kg, 160.02 cm) ph MDM: 09:43 Medical Screening Exam initiated rt 18:28 Differential Diagnosis Cellulitis, sepsis, abscess. Data reviewed: vital signs, nurses rt notes, lab test result(s), radiologic studies. Consideration of Admission/Observation Patient was admitted/placed on observation. Management of patient was discussed with the following: Hospitalist: Agrees to admit. I considered the following discharge prescriptions or medication management in the emergency department Medications were administered in the Emergency Department. See MAR. Independent interpretation of the following test(s) in the Emergency Department CT Scan: My interpretation is No bowel obstruction seen on interpretation of CT scan images. Post IV fluid administration reassessment for Sepsis: Client not prescribed the 30 mL/kg IVF due to: Not in septic shock Sepsis focused reassessment complete. Focused assessment performed: April 03, 2024 at 13:30 Heart: Regular rate/rhythm. Lungs: noted to be clear bilaterally. Neuro: Cardio: Cardiovascular exam improved from previous exam. Heart rate and blood pressure have improved. Counseling: I had a detailed discussion with the patient and/or guardian regarding the historical points, exam findings, and any diagnostic results supporting the discharge/admit diagnosis, lab results, radiology results, the need for further work-up and treatment in the hospital. Response to treatment: the patient's symptoms have markedly improved after treatment. 04/03 09:55 Order name: Blood Culture Adult (2) rt 04/03 09:55 Order name: CBC with Diff; Complete Time: 11:35 rt 04/03 09:55 Order name: CMP; Complete Time: 11:35 rt 04/03 09:55 Order name: Lactate w/ 2H reflex if indic.; Complete Time: 11:35 rt 04/03 09:55 Order name: Protime (+inr); Complete Time: 11:35 rt 04/03 09:55 Order name: Ptt, Activated; Complete Time: 11:35 rt 04/03 09:55 Order name: Urinalysis w/ reflexes; Complete Time: 11:35 rt 04/03 09:55 Order name: Test, Serum rt 04/03 12:44 Order name: Ghost Lactate-NO COLLECT Timer; Complete Time: 13:03 EDMS 04/03 13:52 Order name: Basic Metabolic Panel EDMD 04/03 13:52 Order name: Basic Metabolic Panel EDMD 04/03 13:52 Order name: Basic Metabolic Panel EDMD 04/03 13:52 Order name: Basic Metabolic Panel EDMD 04/03 13:52 Order name: Basic Metabolic Panel EDMD 04/03 13:52 Order name: Basic Metabolic Panel EDMD 04/03 13:52 Order name: Basic Metabolic Panel EDMS 04/03 13:52 Order name: Basic Metabolic Panel EDMS 04/03 13:52 Order name: CBC with Automated Diff EDMS 04/03 13:52 Order name: CBC with Automated Diff EDMS 04/03 13:52 Order name: CBC with Automated Diff EDMS 04/03 13:52 Order name: CBC with Automated Diff EDMS 04/03 13:52 Order name: CBC with Automated Diff EDMS 04/03 13:52 Order name: CBC with Automated Diff EDMS 04/03 13:52 Order name: CBC with Automated Diff EDMS 04/03 13:52 Order name: CBC with Automated Diff EDMS 04/03 13:52 Order name: Magnesium EDMS 04/03 13:52 Order name: Magnesium EDMS 04/03 13:52 Order name: Magnesium EDMS 04/03 13:52 Order name: Magnesium EDMS 04/03 13:52 Order name: Magnesium EDMS 04/03 13:52 Order name: Magnesium EDMS 04/03 13:52 Order name: Magnesium EDMS 04/03 13:52 Order name: Magnesium EDMS 04/03 13:52 Order name: Phosphorus EDMS 04/03 13:52 Order name: Phosphorus EDMS 04/03 13:52 Order name: Phosphorus EDMS 04/03 13:52 Order name: Phosphorus EDMS 04/03 13:52 Order name: Phosphorus EDMS 04/03 13:52 Order name: Phosphorus EDMS 04/03 13:52 Order name: Phosphorus EDMS 04/03 13:52 Order name: Phosphorus EDMS 04/03 15:06 Order name: Lactate Sepsis 2 HR Follow-up EDMS 04/03 09:55 Order name: CT Chest For PE Angio; Complete Time: 12:37 rt 04/03 09:55 Order name: CT Abd/Pelvis - IV Contrast Only; Complete Time: 12:37 rt 04/03 09:55 Order name: EKG; Complete Time: 09:56 rt 04/03 09:55 Order name: Cardiac monitoring; Complete Time: 10:40 rt 04/03 09:55 Order name: EKG - Nurse/Tech; Complete Time: 10:40 rt 04/03 09:55 Order name: IV Saline Lock - Large Bore; Complete Time: 09:56 rt 04/03 09:55 Order name: Labs collected and sent; Complete Time: 09:56 rt 04/03 09:55 Order name: O2 Per Protocol; Complete Time: rt 04/03 09:55 Order name: O2 Sat Monitoring; Complete Time: rt 04/03 09: Order name: Vital Signs; Complete Time: rt EC:52 Rate is 86 beats/min. Rhythm is regular, Normal Sinus Rhythm with No ectopy. QRS [place] rt is Normal. [place] interval is normal. QRS interval is normal. QT interval is normal. No Q waves. T waves are Normal. No ST changes noted. Interpreted by me. Administered Medications: 10:29 Drug: NS 0.9% IV 2000 ml IV at 2 bolus Per protocol; to be given as a bolus over 60 ll1 minutes Route: IV; Rate: 2 bolus; Site: right antecubital; 14:03 Follow up: Response: No adverse reaction; IV Status: Completed infusion; IV Intake: ll1 2000ml 10:30 Drug: Cefepime IVPB 2 grams IVPB at 200 ml/hr once over 30 mins; (mix in NS 100 mL) ll1 Route: IVPB; Rate: 200 ml/hr; Infused Over: 30 mins; Site: right antecubital; 11:44 Follow up: Response: No adverse reaction; IV Status: Completed infusion; IV Intake: [id number] 11:44 Drug: vancoMYCIN IVPB 1 grams IVPB once over 2 hrs Route: IVPB; Infused Over: 2 hrs; ll1 Site: right antecubital; 14:03 Follow up: Response: No adverse reaction; IV Status: Completed infusion; IV Intake: [id number] Disposition Summary: 04/03/24 13:32 Hospitalization Ordered Notes: Hospitalization Status: Inpatient Admission rt Provider: Roland Londono rt Condition: Stable rt Problem: new rt Symptoms: have improved rt Bed/Room Type: Standard rt Location: Telemetry/MedSurg (Inpatient)(04/03/24 18:20) Room Assignment: [facility](04/03/24 18:20) Diagnosis - Severe sepsis without septic shock rt - Cutaneous abscess of suprapubic region rt Forms: - Medication Reconciliation Form rt - SBAR form rt - Leadership Thank You Letter rt Signatures: Dispatcher [employer] Francisca Maldonado RN RN Katelyn Munoz RN RN Keiry Thomas RN RN ll1 Delia Dennis RN RN kb3 Haile Avila MD MD rt Corrections: (The following items were deleted from the chart) 09:56 09:56 Abdomen Pelvis W Con+CT.RAD.BRZ ordered. EDMS EDMS 10:24 09:55 Accucheck ordered. rt ss 14:51 13:32 Telemetry/MedSurg (Inpatient) rt kb3 14:51 13:32 rt kb3 18:20 14:51 [facility] ER HOLD kb3 ss 18:20 14:51 ERHOLD- kb3 ss
[2024-04-03] MEDS ORDERED: ONDANSETRON 4 MG/2 ML VIAL IV PRN (13:45)
--- NOTE | 2024-04-03 13:56 | P.HP ---
Certification for Inpatient Patient admitted to: Observation With expected LOS: <2 Midnights Patient will require the following post-hospital care: None Practitioner: I am a practitioner with admitting privileges, knowledge of patient current condition, hospital course, and medical plan of care. Services: Services provided to patient in accordance with Admission requirements found in Title 42 Section 412.3 of the Code of Federal Regulations Patient History Date of Service: 04/03/24 Reason for admission: sepsis 2/2 pubic abscess History of Present Illness: Dottie Blanca is a 43 year old female with Pmhx H pylori, hypercholesterolemia, who presents to the ED with chief complaint of fever at home. She reports an abscess to the right pubis that appeared on Sunday. She started taking left over Sulfa and amoxicillin she had at home. She has a Penicillin allergy and assumed she was feeling bad because she was taking amoxicillin. 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 IVF, vanc and cefepime started in the ED CT abdomen pelvis report "Areas of dermal skin thickening and underlying fat stranding, with no evidence of deep inflammatory changes or fluid collections." CTA chest thoracic reports "No evidence of acute central pulmonary emboli. No suspicious intrathoracic findings." Dottie will be admitted to hospitalist service for further evaluation and treatment of Severe sepsis 2/2 pubic abscess. Allergies No Known Allergies Allergy (Verified 01/16/20 10:09) Home Medications: Pantoprazole [Protonix Tab] 40 mg PO DAILY 01/16/20 - Past Medical/Surgical History -: H pylori -: hypercholesterolemia -: Hernia repair -: Hysterectomy - Social History Smoking Status: Never smoker Alcohol use: No CD- Drugs: No Review of Systems General: Fever Physical Examination - Physical Exam General: Alert, In no apparent distress, Oriented x3 HEENT: Atraumatic, Normocephalic, PERRLA Neck: Supple, 2+ carotid pulse no bruit Respiratory: Clear to auscultation bilaterally, Normal air movement Cardiovascular: Normal pulses, Normal S1 S2, Irregular heart rate/rhythm (tachycardic) Capillary refill: <2 Seconds Gastrointestinal: Soft and benign Musculoskeletal: No clubbing Integumentary: Skin breakdown (right pubis) Neurological: Normal speech, Normal tone - Studies Laboratory Data (last 24 hrs) 1004/03/24 04/03/24 10:10 10:10 10:10 WBC 10.10 Hgb 14.6 Hct 43.2 Plt Count 521 H PT 10.7 INR 0.95 APTT 36.2 Sodium 134 L Potassium 3.6 BUN 10 Creatinine 0.95 Glucose 90 Total Bilirubin 0.4 AST 20 ALT 42 Alkaline Phosphatase 104 Assessment and Plan - Plan Assessment and plan Severe sepsis 2/2 pubic abscess -Sepsis criteria HR 120, RR 23, Lactic 3.7, pubic abscess with drainage -IVF -vanc/cefepime -follow wound and blood cultures H pylori hypercholesterolemia -Continue medication DVT PPx Lovenox Full code LOS 2 days Discharge Plan: Home Plan to discharge in: 24 Hours - Advance Directives Does patient have a Living Will: No Does patient have a Durable POA for Healthcare: No
[2024-04-03] MEDS ORDERED: NA CHLORIDE 0.9% 1,000 ML ONE (16:04)
[2024-04-03] MEDS: NA CHLORIDE 0.9% 1,000 ML IV SCH (16:28)
[2024-04-03] MEDS: CEFEPIME 2 GM in NA CHLORIDE 0.9% 100 ML IV SCH (21:56)
[2024-04-04 06:55] LABS: Absolute Basophils 0.1 K/uL (0-0.5); Absolute Eosinophils 0.3 K/uL (0-0.5); Absolute Lymphocytes (CBC) 2.3 K/uL (0.7-4.9); Absolute Monocytes 0.7 K/uL (0.1-1.3); Absolute Neutrophil 6.3 K/uL (1.8-8.0); Basophils % 0.9 % (0-1.3); Eosinophils % 2.6 % (0-4.4); Hematocrit 36.1 % (36.0-45.0); Hemoglobin 12.2 g/dL (12.0-15.0); Lymphocytes % 24.1 % (15.3-44.8); MCH 30.6 pg (27.0-35.0); MCHC 33.7 g/dL (32.0-36.0); MCV 90.8 fL (80-100); MPV 7.8 fL (7.6-11.3); Monocytes % 7.1 % (3.3-12.3); Neutrophils % 65.3 % (41.7-73.7); Nucleated Red Blood Cells % 0.1 % (0-0); Platelets 458 thou/uL (152-406); RBC Red Blood Cell Count 3.98 M/uL (3.86-4.86); Red Cell Distribution Width 13.3 % (12.1-15.2)
[2024-04-04 07:10] LABS: Anion Gap 7.2 mEq/L (5.0-15.0); Magnesium 2.2 mg/dL (1.6-2.4); Phosphorus 2.5 mg/dL (2.5-4.9); Potassium 4.2 mEq/L (3.5-5.1)
[2024-04-04] MEDS: ENOXAPARIN 40 MG/0.4 ML SQ SCH (09:20)
[2024-04-04] MEDS ORDERED: MORPHINE 2 MG/ML SYR IV PRN (09:55)
[2024-04-04] MEDS: HYDROCODONE/APAP 7.5/325 MG TAB PO PRN (13:12)
[2024-04-04] MEDS: NICOTINE 7 MG/PAT TD SCH (13:12)
[2024-04-04] MEDS: ACETAMINOPHEN 325 MG TABLET PO PRN (16:22)
--- NOTE | 2024-04-04 18:17 | P.PN ---
Date of Service: 04/04/24 Subjective Awake and not feeling well Reports feeling worse than yesterday with bodyaches Tmax 99.3, WBC WNL Blood culture and positive Will replace cefepime for Merrem Abscess not draining today ROS 10 point ROS as noted above, otherwise negative Physical Exam General: Alert and Oriented x3, NAD HEENT: Atraumatic, Normocephalic, PERRLA Neck: Supple, 2+ carotid pulse no bruit Respiratory: Clear to auscultation bilaterally, Normal air movement, on RA Cardiovascular: Normal pulses, Normal S1 S2, regular rate and rhythm Capillary refill: <2 Seconds Gastrointestinal: Soft and benign on palpation Musculoskeletal: No clubbing Integumentary: Skin breakdown (right pubis) Neurological: Normal speech, Normal tone Vitals Reviewed Problem list Sepsis 2/2 pubic abscess H pylori hypercholesterolemia Assessment and Plan Sepsis 2/2 pubic abscess -Sepsis criteria HR 120, RR 23, Lactic 3.7, pubic abscess with drainage -Lactic cleared 0.9 -IVF -vanc/Merrem, Stopped cefepime -wound culture -blood culture- gram positive H pylori hypercholesterolemia -Continue medication DVT PPx Lovenox Full code LOS 2 days Discharge Plan: Home Plan to discharge in: 24 Hours
[2024-04-04] MEDS: Meropenem 1,000 MG in NA CHLORIDE 0.9% 100 ML IV SCH (18:37)
[2024-04-04] MEDS: ESZOPICLONE 1 MG TAB PO SCH (20:17)
[2024-04-04] MEDS ORDERED: HOME MED 1 EA UNK (Eszopiclone [Lunesta] 3 MG Tablet) PO SCH (21:00)
[2024-04-04] MEDS: BREXPIPRAZOLE 1 MG PO SCH (21:00)
[2024-04-04] MEDS: VANCOMYCIN 1 GM in NA CHLORIDE 0.9% 250 ML IVPB SCH (21:11)
[2024-04-05 07:17] LABS: Absolute Basophils 0.1 K/uL (0-0.5); Absolute Eosinophils 0.2 K/uL (0-0.5); Absolute Monocytes 0.6 K/uL (0.1-1.3); Basophils % 0.6 % (0-1.3); Eosinophils % 2.4 % (0-4.4); Hemoglobin 11.9 g/dL (12.0-15.0); Lymphocytes % 33.7 % (15.3-44.8); MCH 30.4 pg (27.0-35.0); MCHC 34.1 g/dL (32.0-36.0); MCV 89.3 fL (80-100); MPV 7.7 fL (7.6-11.3); Monocytes % 6.7 % (3.3-12.3); Neutrophils % 56.6 % (41.7-73.7); Nucleated Red Blood Cells % 0.2 % (0-0); Platelets 463 thou/uL (152-406); RBC Red Blood Cell Count 3.92 M/uL (3.86-4.86); Red Cell Distribution Width 13.2 % (12.1-15.2)
[2024-04-05 07:32] LABS: Anion Gap 7.8 mEq/L (5.0-15.0); Magnesium 2.1 mg/dL (1.6-2.4); Phosphorus 2.5 mg/dL (2.5-4.9); Potassium 3.8 mEq/L (3.5-5.1)
[2024-04-05] MEDS: DEXTROAMPHETAMINE PO SCH (09:00)
[2024-04-05] MEDS ORDERED: NICOTINE 7 MG/PAT TD SCH (09:00)
[2024-04-05] MEDS ORDERED: DESVENLAFAXINE SUCCINATE 100 MG PO SCH (09:00)
[2024-04-05] MEDS: AMPHETAMINE PO SCH (09:00)
[2024-04-05] MEDS: DESVENLAFAXINE SUCCINATE 50 MG ER TAB PO SCH (09:48)
[2024-04-05] MEDS: ALPRAZOLAM 0.5 MG TABLET PO SCH (10:06)
--- NOTE | 2024-04-05 15:05 | P.PN ---
Date of Service: 04/05/24 Subjective Awake and reports feeling better Later, experienced a panic attacked encouraged ambulating in the hallway ROS 10 point ROS as noted above, otherwise negative Physical Exam General: AAO x3, NAD HEENT: Atraumatic, Normocephalic, PERRLA Neck: Supple, 2+ carotid pulse no bruit Respiratory: Clear to auscultation bilaterally, Normal air movement, on RA Cardiovascular: Normal S1 S2, RRR, no murmur noted Capillary refill: <2 Seconds Gastrointestinal: Soft on palpation, NT/ND Musculoskeletal: No clubbing Integumentary: Skin breakdown (right pubis) Neurological: Normal speech, Normal tone Vitals Reviewed Problem list Sepsis 2/2 pubic abscess H pylori hypercholesterolemia Assessment and Plan Sepsis 2/2 pubic abscess -Sepsis criteria HR 120, RR 23, Lactic 3.7, pubic abscess with drainage -Lactic cleared 0.9 -IVF stopped -vanc/Merrem, Stopped cefepime -blood culture- alpha hemolytic strep Panic attack -Xanax 0.5 mg x1 H pylori hypercholesterolemia -Continue medication DVT PPx Lovenox Full code LOS 2 days Discharge Plan: Home Plan to discharge in: 24 Hours
[2024-04-05] MEDS: MUPIROCIN 2% OINT 22GM TUBE TOP SCH (15:45)
[2024-04-06 06:54] LABS: Absolute Basophils 0.1 K/uL (0-0.5); Absolute Eosinophils 0.3 K/uL (0-0.5); Absolute Monocytes 0.8 K/uL (0.1-1.3); Absolute Neutrophil 9.5 K/uL (1.8-8.0); Basophils % 0.7 % (0-1.3); Hematocrit 38.4 % (36.0-45.0); Hemoglobin 12.9 g/dL (12.0-15.0); Lymphocytes % 21.8 % (15.3-44.8); MCH 30.1 pg (27.0-35.0); MCHC 33.5 g/dL (32.0-36.0); MCV 89.7 fL (80-100); MPV 7.2 fL (7.6-11.3); Monocytes % 6.1 % (3.3-12.3); Neutrophils % 69.4 % (41.7-73.7); Nucleated Red Blood Cells % 0.1 % (0-0); Platelets 487 thou/uL (152-406); RBC Red Blood Cell Count 4.28 M/uL (3.86-4.86); Red Cell Distribution Width 13.4 % (12.1-15.2)
[2024-04-06 07:09] LABS: Anion Gap 8.2 mEq/L (5.0-15.0); Magnesium 2.2 mg/dL (1.6-2.4); Potassium 4.2 mEq/L (3.5-5.1)
[2024-04-06 11:41] VITALS: O2SAT 97
--- NOTE | 2024-04-06 12:18 | P.PN ---
Date of Service: 04/06/24 Subjective Awake, ambulating in the hallway independently Feeling more awake this morning, still with some body aches Blood cultures drawn, prepare for PICC line and home IV antibiotics ROS 10 point ROS as noted above, otherwise negative Physical Exam General: Awake alert and oriented x3, NAD HEENT: Atraumatic, Normocephalic, PERRLA Neck: Supple, 2+ carotid pulse no bruit Respiratory: Clear BBS, symmetrical chest wall movement, on RA Cardiovascular: Normal S1 S2, regular rate and rhythm, no murmur noted Capillary refill: <2 Seconds Gastrointestinal: Soft on palpation, NT/ND, bowel sounds present Musculoskeletal: No clubbing Integumentary: Skin breakdown (right pubis) Neurological: Normal speech, Normal tone Vitals Reviewed Problem list Sepsis 2/2 pubic abscess Leukocytosis H pylori hypercholesterolemia Assessment and Plan Sepsis 2/2 pubic abscess Leukocytosis -Sepsis criteria HR 120, RR 23, Lactic 3.7, pubic abscess with drainage -WBC 13.7 -Lactic cleared 0.9 -IVF stopped -vanc/Merrem, Stopped cefepime -blood culture- alpha hemolytic streptococcus species, sensitive to vancomycin -Mupirocin to abscess Panic attack -Xanax 0.5 mg x1 H pylori hypercholesterolemia -Continue medication Smoking abuse -nicotine patch -cessation education provided DVT PPx Lovenox Full code LOS 2 days Discharge Plan: Home Plan to discharge in: 24 Hours
[2024-04-06] MEDS: VANCOMYCIN 1.25 GM in NA CHLORIDE 0.9% 250 ML IVPB SCH (19:55)
[2024-04-07 07:04] LABS: Absolute Basophils 0.1 K/uL (0-0.5); Absolute Eosinophils 0.3 K/uL (0-0.5); Absolute Lymphocytes (CBC) 2.9 K/uL (0.7-4.9); Absolute Monocytes 0.8 K/uL (0.1-1.3); Absolute Neutrophil 6.3 K/uL (1.8-8.0); Basophils % 0.5 % (0-1.3); Eosinophils % 2.8 % (0-4.4); Hematocrit 36.5 % (36.0-45.0); Hemoglobin 11.9 g/dL (12.0-15.0); MCH 29.6 pg (27.0-35.0); MCHC 32.7 g/dL (32.0-36.0); MCV 90.5 fL (80-100); MPV 8.1 fL (7.6-11.3); Monocytes % 7.7 % (3.3-12.3); Platelets 461 thou/uL (152-406); RBC Red Blood Cell Count 4.03 M/uL (3.86-4.86); Red Cell Distribution Width 13.1 % (12.1-15.2)
[2024-04-07 07:15] LABS: Anion Gap 10.3 mEq/L (5.0-15.0); Phosphorus 2.7 mg/dL (2.5-4.9); Potassium 4.3 mEq/L (3.5-5.1)
[2024-04-07] MEDS: CEFTRIAXONE 2,000 MG in NA CHLORIDE 0.9% 100 ML IV SCH (09:41)
--- NOTE | 2024-04-07 16:05 | RAD REPORT ---
Procedure: Chest Single View HISTORY: Device placement. PICC line placement COMPARISON: none FINDINGS: PICC line has been inserted with its tip in the SVC
[2024-04-07 16:47] VITALS: BMI 23.9
--- NOTE | 2024-04-07 18:29 | P.PN ---
Date of Service: 04/07/24 Subjective Feeling well, tolerating PO diet, feeling more awake Some body aches remain no new complaints ROS 10 point ROS as noted above, otherwise negative Physical Exam General: AAO x3, NAD HEENT: Atraumatic, Normocephalic, PERRLA Neck: Supple, 2+ carotid pulse no bruit Respiratory: Clear BBS, nonlabored breathing, on RA Cardiovascular: Normal S1 S2, mild tachycardia, no murmur noted Capillary refill: <2 Seconds Gastrointestinal: Soft and benign on palpation, NT/ND, bowel sounds present Musculoskeletal: No clubbing Integumentary: Skin breakdown, healing (right pubis) Neurological: Normal speech, Normal tone Vitals Reviewed Problem list Sepsis 2/2 pubic abscess Leukocytosis H pylori hypercholesterolemia Assessment and Plan Sepsis 2/2 pubic abscess Leukocytosis -Sepsis criteria HR 120, RR 23, Lactic 3.7, pubic abscess with drainage -WBC 10.4 -Lactic cleared 0.9 -IVF stopped -Started rocephin 1 gram, will continue end date 04/16 -Stopped vanc/Merrem, Stopped cefepime -blood culture- alpha hemolytic streptococcus species, sensitive to vancomycin -Repeat Blood cutures 04/06 negative -Mupirocin to abscess -Home IV antibiotics ordered Panic attack -Xanax 0.5 mg x1 H pylori hypercholesterolemia -Continue medication Smoking abuse -nicotine patch -cessation education provided DVT PPx Lovenox Full code LOS 2 days Discharge Plan: Home Plan to discharge in: 24 Hours
[2024-04-08 09:08] LABS: Absolute Basophils 0.1 K/uL (0-0.5); Absolute Eosinophils 0.4 K/uL (0-0.5); Absolute Lymphocytes (CBC) 2.8 K/uL (0.7-4.9); Absolute Monocytes 0.7 K/uL (0.1-1.3); Absolute Neutrophil 7.4 K/uL (1.8-8.0); Basophils % 0.5 % (0-1.3); Eosinophils % 3.2 % (0-4.4); Hematocrit 36.1 % (36.0-45.0); Hemoglobin 12.2 g/dL (12.0-15.0); Lymphocytes % 24.9 % (15.3-44.8); MCH 30.5 pg (27.0-35.0); MCHC 33.8 g/dL (32.0-36.0); MCV 90.2 fL (80-100); MPV 7.6 fL (7.6-11.3); Monocytes % 6.3 % (3.3-12.3); Neutrophils % 65.1 % (41.7-73.7); Platelets 464 thou/uL (152-406); RBC Red Blood Cell Count 4.01 M/uL (3.86-4.86); Red Cell Distribution Width 12.9 % (12.1-15.2)
[2024-04-08 09:27] LABS: Anion Gap 7.1 mEq/L (5.0-15.0)
[2024-04-08 09:28] LABS: Magnesium 2.1 mg/dL (1.6-2.4); Potassium 4.1 mEq/L (3.5-5.1)
--- NOTE | 2024-04-08 13:11 | EKG ---
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
[2024-04-08 14:26] VITALS: BP 108/59; TEMP 98.6
--- NOTE | 2024-04-08 14:56 | P.DS ---
Admission Date: 04/05/24 Discharge Date: 04/08/24 Disposition: DC HOME/HOME HEALTH CARE Discharge Condition: GOOD Reason for Admission: sepsis 2/2 pubic abscess Brief History of Present Illness: Dottie Blanca is a 43 year old female with Pmhx H pylori, hypercholesterolemia, who presents to the ED with chief complaint of fever at home. She reports an abscess to the right pubis that appeared on Sunday. She started taking left over Sulfa and amoxicillin she had at home. She has a Penicillin allergy and assumed she was feeling bad because she was taking amoxicillin. 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 IVF, vanc and cefepime started in the ED Hospital Course: Patient was admitted to the hospital for abscess to the right pubic area. She had been taking leftover Bactrim, amoxicillin that she had at home. She is initially treated with vancomycin and cefepime, abscess did not require I&D and has significantly improved, there is no induration, erythema or tenderness currently. Blood cultures were obtained 04/03 which showed Streptococcus in 2 out of 4 bottles. Repeat blood cultures were performed on 04/06 which showed no growth. The Streptococcus species was pansensitive. PICC line was inserted patient was started on Rocephin 2 g IV daily. It has been arranged for her to receive Rocephin 2 g IV daily through her PICC line at home through 04/16. The antibiotic has been arranged although home health has not yet been arranged, this is in process but patient is asking to be discharged at this time, she understands that if home health is not set up she will have to travel to the infusion office for dressing changes, labs etc. Please continue other home medications as previously prescribed Problem list Sepsis 2/2 pubic abscess Gram-positive Streptococcus bacteremia Leukocytosis H pylori hypercholesterolemia General: AAO x3, NAD HEENT: Atraumatic, Normocephalic, PERRLA Neck: Supple, 2+ carotid pulse no bruit Respiratory: Clear BBS, nonlabored breathing, on RA Cardiovascular: Normal S1 S2, mild tachycardia, no murmur noted Capillary refill: <2 Seconds Gastrointestinal: Soft and benign on palpation, NT/ND, bowel sounds present Musculoskeletal: No clubbing Integumentary: Skin breakdown, healing (right pubis) Neurological: Normal speech, Normal tone Vital Signs/Physical Exam: Temp Pulse Resp BP Pulse Ox 98.6 F 110 H 16 108/59 L 97 04/08/24 12:00 04/08/24 12:00 04/08/24 12:00 04/08/24 12:00 04/08/24 12:00 Laboratory Data at Discharge: WBC 11.30 thou/uL (4.3-10.9) H 04/08/24 07:20 Hgb 12.2 g/dL (12.0-15.0) 04/08/24 07:20 Hct 36.1 % (36.0-45.0) 04/08/24 07:20 Plt Count 464 thou/uL (152-406) H 04/08/24 07:20 PT 10.7 SECONDS (9.4-12.5) 04/03/24 10:10 INR 0.95 04/03/24 10:10 APTT 36.2 SECONDS (24.3-36.9) 04/03/24 10:10 Sodium 138 mEq/L (136-145) 04/08/24 07:20 Potassium 4.1 mEq/L (3.5-5.1) 04/08/24 07:20 BUN 8 mg/dL (7-18) 04/08/24 07:20 Creatinine 0.54 mg/dL (0.55-1.02) L 04/08/24 07:20 Glucose 105 mg/dL (74-106) 04/08/24 07:20 Phosphorus 3.0 mg/dL (2.5-4.9) 04/08/24 07:20 Magnesium 2.1 mg/dL (1.6-2.4) 04/08/24 07:20 Total Bilirubin 0.4 mg/dL (0.2-1.0) 04/03/24 10:10 AST 20 U/L (15-37) 04/03/24 10:10 ALT 42 U/L (13-56) 04/03/24 10:10 Alkaline Phosphatase 104 U/L (45-117) 04/03/24 10:10 Home Medications: Brexpiprazole [Rexulti] 1 mg PO BEDTIME 04/03/24 Desvenlafaxine Succinate [Pristiq] 100 mg PO DAILY 04/03/24 Dextroamphetamine/Amphetamine [Adderall 15 mg Tablet] 15 mg PO DAILY 04/03/24 Eszopiclone [Lunesta] 3 mg PO BEDTIME 04/03/24 Physician Discharge Instructions: Patient was admitted to the hospital for abscess to the right pubic area. She had been taking leftover Bactrim, amoxicillin that she had at home. She is initially treated with vancomycin and cefepime, abscess did not require I&D and has significantly improved, there is no induration, erythema or tenderness currently. Blood cultures were obtained 04/03 which showed Streptococcus in 2 out of 4 bottles. Repeat blood cultures were performed on 04/06 which showed no growth. The Streptococcus species was pansensitive. PICC line was inserted patient was started on Rocephin 2 g IV daily. It has been arranged for her to receive Rocephin 2 g IV daily through her PICC line at home through 04/16. The antibiotic has been arranged although home health has not yet been arranged, this is in process but patient is asking to be discharged at this time, she understands that if home health is not set up she will have to travel to the infusion office for dressing changes, labs etc. Please continue other home medications as previously prescribed Home Infusion: [facility]- [id number] [facility] [address], [place] [address] [facility], [place] [address] P/ Zarina: [phone] F Home Health is pending. If not approved patient to travel (per discussion) to [facility] office for PICC line dressing changes, lab work, and line removal upon completion. Home Health (referral placed on 04/08/24 - pending clinical and insurance approval) [facility] P:[phone] F:[phone] Diet: Regular Activity: Ad tucker Followup: Nicole Sage NP [Primary Care Provider] - 1-2 Weeks Time spent managing pt's care (in minutes): 45
== END 2024-04-08 15:23 | disposition home or self-care (01) | DRG 872 ==
LOC: ER 09:23 → ERHOLD 13:45 → 4TH 18:34 → OBSVTOIN 04-05 07:48
PROVIDERS: ADMIT Internal Medicine; ATTEND Hospitalist
PROC: 02HV33Z Insertion of Infusion Device into Superior Vena Cava, Percutaneous Approach (ICD-10-PCS; principal; 2024-04-07)
DX: A41.9 Sepsis, unspecified organism (principal); L02.214 Cutaneous abscess of groin; R65.20 Severe sepsis without septic shock; E78.00 Pure hypercholesterolemia, unspecified; F41.0 Panic disorder [episodic paroxysmal anxiety]; F17.210 Nicotine dependence, cigarettes, uncomplicated; B96.81 Helicobacter pylori [H. pylori] as the cause of diseases classified elsewhere; Z88.0 Allergy status to penicillin; Z90.710 Acquired absence of both cervix and uterus
CPT/HCPCS: 36415; 36569; 71045; 71275; 74177; 80048; 80053; 80202; 81003; 83605; 83735; 84100; 85025; 85610; 85730; 87040; 87077; 87186; 87205; 93005; 96365; 96366; 96367; 99285; G0378; J0692; J0696; J1650; J2185; J7030; J7050; Q9967

== ENCOUNTER 2024-04-21 16:29 | Emergency (ER) | payer BC ==
--- OUTSIDE RECORDS SUMMARY | 2024-04-21 16:32 | XMS REPORT | Clinical Summary ---
Author Name Unknown Organization [facility] Address [address] [place] [address] Care Team Providers Care Senior Receptionist Name Role Phone Sekou Borjas MD Primary Care Provider [phone] Wilberto Wiseman MD Unavailable [phone] Allergies No known active allergies Medications Medication [...] age to complete this topic Care Teams Senior Receptionist Relationship Specialty Start Date End Date Sekou Borjas MD [address] [place] [phone] [email or web address] PCP - General Gynecological Oncology 01/15/18 Wilberto Wiseman MD [address] [place] [phone] [email or web address] PCP - External Referring 01/31/18
--- NOTE | 2024-04-21 17:11 | ER ---
Nurse's Notes [facility] Name: Dottie Blanca Age: 43 yrs Sex: Female : 1980 Arrival Date: 04/21/2024 Time: 16:29 Bed IW6 Private MD: Diagnosis: Encounter for change or removal of nonsurgical wound dressing Presentation: 04/21 17:00 Chief complaint: Patient states: " I was moving stuff and the tape came off (PICC aa5 dressing)". 17:00 Coronavirus screen: At this time, the client does not indicate any symptoms associated aa5 with coronavirus-19. Ebola Screen: Patient denies travel to an Ebola-affected area in the 21 days before illness onset. Initial Sepsis Screen: Does the patient meet any 2 criteria? No. Patient's initial sepsis screen is negative. Does the patient have a suspected source of infection? No. Patient's initial sepsis screen is negative. Risk Assessment: Do you want to hurt yourself or someone else? Patient reports no desire to harm self or others. Onset of symptoms was April 21, 2024. 17:00 Method Of Arrival: Ambulatory aa5 17:00 Acuity: RENETTA 4 aa5 Historical: - Allergies: 17:00 PENICILLINS; aa5 - PMHx: 17:00 High Cholesterol; HPylori; aa5 - PSHx: 17:00 hysterectomy; hernia repair; hernia repair; aa5 Screenin:00 [facility] ED Fall Risk Assessment (Adult) History of falling in the last 3 months, aa5 including since admission No falls in past 3 months (0 pts) Confusion or Disorientation No (0 pts) Intoxicated or Sedated No (0 pts) Impaired Gait No (0 pts) Mobility Assist Device Used No (0 pt) Altered Elimination No (0 pt) Score/Fall Risk Level 0 - 2 = Low Risk Oriented to surroundings, Maintained a safe environment, Educated pt \\T\\ family on fall prevention, incl call for assistance when getting out of bed. Abuse screen: Denies threats or abuse. Nutritional screening: No deficits noted. Tuberculosis screening: No symptoms or risk factors identified. Assessment: 17:00 General: Appears comfortable, Behavior is calm, cooperative, PICC Line noted to right aa5 arm, in place with stat lock in place, pt reports Tegaderm dressing came off. . Pain: Denies pain. Neuro: Level of Consciousness is awake, alert, obeys commands, Oriented to person, place, time, situation. Cardiovascular: Patient's skin is warm and dry. Respiratory: Airway is patent Respiratory effort is even, unlabored, Respiratory pattern is regular, symmetrical. GI: No signs and/or symptoms were reported involving the gastrointestinal system. : No signs and/or symptoms were reported regarding the genitourinary system. EENT: No signs and/or symptoms were reported regarding the EENT system. Derm: Skin is pink, warm \\T\\ dry. Musculoskeletal: Range of motion: intact in all extremities. Vital Signs: 17:00 BP 112 / 75; Pulse 85; Resp 18 S; Temp 97.5(TE); Pulse Ox 98% on R/A; aa5 ED Course: 16:31 Patient arrived in ED. mg5 17:00 Arm band placed on. aa5 17:00 Patient has correct armband on for positive identification. Adult w/ patient. aa5 17:01 Elvira Pinon PA-C is PHCP. sb4 17:01 Ba Nina MD is Attending Physician. sb4 17:05 No provider procedures requiring assistance completed. Patient did not have IV access aa5 during this emergency room visit. 17:05 Changed dressing on PICC line. Dressings: Tegaderm X 1; right arm. aa5 17:10 Rimma Aranda RN is Primary Nurse. aa5 20:39 Triage completed. aa5 Administered Medications: No medications were administered Medication: 17:05 VIS not applicable for this client. aa5 Outcome: 17:02 Discharge ordered by . sb4 17:05 Patient left the ED. aa5 17:05 Discharged to home ambulatory, with significant other, aa5 17:05 Condition: good 17:05 Discharge instructions given to patient, Instructed on discharge instructions, follow up and referral plans. Demonstrated understanding of instructions, follow-up care, Signatures: Rimma Aranda RN RN aa5 Elvira Pinon PA-C PA-C sb4 Aida Mendoza mg5 Corrections: (The following items were deleted from the chart) 20:40 17:11 Patient left the ED. aa5 aa5
[2024-04-21 17:16] VITALS: BP 112/75; TEMP 97.5; O2SAT 98
--- NOTE | 2024-04-22 17:11 | EDPHYS ---
Physician Documentation [facility] Name: Dottie Blanca Age: 43 yrs Sex: Female : 1980 Arrival Date: 04/21/2024 Time: 16:29 Bed IW6 Private MD: ED Physician Ba Nina HPI: 04/21 17:27 This 43 yrs old Female presents to ER via Unassigned with complaints of PICC LINE sb4 PROBLEM. 17:27 patient is requesting a new dressing for her PICC line because hers got caught on sb4 something and is now damaged. states the line itself is working properly. Historical: - Allergies: 17:00 PENICILLINS; aa5 - PMHx: 17:00 High Cholesterol; HPylori; aa5 - PSHx: 17:00 hysterectomy; hernia repair; hernia repair; aa5 ROS: 17:27 Constitutional: Negative for fever, chills, and weight loss, sb4 17:27 All other systems are negative, Exam: 17:31 Constitutional: This is a well developed, well nourished patient who is awake, alert, sb4 and in no acute distress. Head/Face: Normocephalic, atraumatic. Eyes: Extra-ocular motions intact. Periorbital areas with no swelling, redness, or edema. ENT: Mucous membranes moist. 17:31 Skin: picc right upper arm without surrounding erythema or cellulitis. Vital Signs: 17:00 BP 112 / 75; Pulse 85; Resp 18 S; Temp 97.5(TE); Pulse Ox 98% on R/A; aa5 MDM: 17:02 Medical Screening Exam initiated sb4 17:31 Data reviewed: vital signs, nurses notes, and as a result, I will discharge patient. sb4 Counseling: I had a detailed discussion with the patient and/or guardian regarding the historical points, exam findings, and any diagnostic results supporting the discharge/admit diagnosis, to return to the emergency department if symptoms worsen or persist or if there are any questions or concerns that arise at home. Administered Medications: No medications were administered Disposition: 17:30 Co-signature as Attending Physician, Ba Nina MD I reviewed the patient's care rn provided by the Advanced Practice Provider and agree with the diagnosis and treatment plan. Disposition Summary: 11/04/24 17:02 Discharge Ordered Notes: Location: Home sb4 Problem: new sb4 Symptoms: have improved sb4 Condition: Stable sb4 Diagnosis - Encounter for change or removal of nonsurgical wound dressing sb4 Followup: sb4 - With: Private Physician - When: As needed - Reason: Recheck today's complaints, Re-evaluation by your physician Discharge Instructions: - Discharge Summary Sheet sb4 - PICC Home Care Guide sb4 Forms: - Patient Portal Instructions sb4 - Leadership Thank You Letter sb4 Signatures: Ba Nina MD MD rn Calderon, Audri RN RN aa5 Elvira Pinon, PALollyC PALollyC sb4 Corrections: (The following items were deleted from the chart) 17:31 17:27 patient is requesting a new dressing for her PICC line. states it is working sb4 properly. sb4
== END 2024-04-21 17:11 | disposition home or self-care (01) ==
LOC: ER 16:29
DX: Z48.00 Encounter for change or removal of nonsurgical wound dressing (principal)
CPT/HCPCS: 99283